=== PATIENT | female | born 1945 | race Hispanic/Latino ===

== ENCOUNTER 2017-10-30 08:33 | Outpatient (CLI) | payer MEDICARE | END 2017-10-30 08:34 | disposition home or self-care (01) | LOC: BICMAMMO 08:33 | PROVIDERS: ATTEND Family Medicine | DX: Z12.31 Encounter for screening mammogram for malignant neoplasm of breast (principal) | CPT/HCPCS: 77063; 77067 ==

== ENCOUNTER 2017-11-13 09:39 | Outpatient (CLI) | payer MEDICARE | END 2017-11-13 09:40 | disposition home or self-care (01) | LOC: BICMAMMO 09:39 | PROVIDERS: ATTEND Family Medicine | DX: R92.2 Inconclusive mammogram (principal); N63.20 Unspecified lump in the left breast, unspecified quadrant | CPT/HCPCS: 76642; 77065; G0279 ==

== ENCOUNTER → 2017-11-19 | Day surgery (SDC) | payer MEDICARE | LOC: BICULT 11:56 | PROVIDERS: ATTEND Family Medicine | PROC: 0HBU3ZX Excision of Left Breast, Percutaneous Approach, Diagnostic (ICD-10-PCS; principal; 2017-11-19) | DX: C50.812 Malignant neoplasm of overlapping sites of left female breast (principal); Z17.0 Estrogen receptor positive status [ER+]; Z79.82 Long term (current) use of aspirin; Z79.84 Long term (current) use of oral hypoglycemic drugs; Z79.899 Other long term (current) drug therapy | CPT/HCPCS: 19100; 76942; 88305; 88341; 88342; 88361; 88377 ==

== ENCOUNTER 2017-12-31 11:00 | Outpatient (CLI) | payer MEDICARE ==
[2017-12-31 12:13] LABS: #Eosinphils 0.1 thou/uL (0.0-0.7); #Lymphocytes 2.6 thou/uL (1.20-3.40); #Monocytes 0.7 thou/uL (0.11-0.59); #Neutrophils 4.5 thou/uL (1.40-6.50); %Basophils 0.4 % (0.0-1.0); %Eosinophils 1.7 % (0.0-10.0); %Lymphocytes 33.3 % (21.0-51.0); %Monocytes 8.2 % (0.0-10.0); %Neutrophils 56.4 % (42.0-75.0); Hemoglobin 12.6 g/dL (12.0-16.0); Mean Corpuscular Hemoglobin 30.7 pg (27.0-31.0); Mean Corpuscular Volume 92.8 fl (81.0-99.0); Mean Platelet Volume 7.5 fL (7.4-10.4); Platelet Count 252 thou/uL (130-400); RBC Distribution Width 12.1 % (11.5-14.5); Red Blood Cell (RBC) Count 4.11 mill/uL (4.20-5.40); White Blood Cell (WBC) Count 7.9 thou/uL (4.8-10.8)
[2017-12-31 12:32] LABS: ALT (SGPT) 14 U/L (8-55); AST (SGOT) 17 U/L (5-34); Albumin 3.9 g/dL (3.4-4.8); Alkaline Phosphatase 101 U/L (40-150); Anion Gap 11 mmol/L (10-20); BUN (Urea Nitrogen) 12 mg/dL (9.8-20.1); Bilirubin, Total 1.1 mg/dL (0.2-1.2); Calc. Creatinine Clearance 0 mL/min (70-130); Calcium 9.1 mg/dL (7.8-10.44); Carbon Dioxide 29 mmol/L (23-31); Chloride 104 mmol/L (98-107); Estimated GFR-MDRD 79; Glucose 166 mg/dL (83-110); Protein, Total 6.9 g/dL (6.0-8.3); Sodium 140 mmol/L (136-145)
--- NOTE | 2018-01-01 07:35 | EKG ---
Test Reason : Blood Pressure : / mmHG Vent. Rate : 073 BPM Atrial Rate : 073 BPM P-R Int : 132 ms QRS Dur : 078 ms QT Int : 394 ms P-R-T Axes : 064 044 033 degrees QTc Int : 434 ms Normal sinus rhythm Cannot rule out Anterior infarct , age undetermined Nonspecific ST-T changes Abnormal ECG When compared with ECG of 22-OCT-2016 13:56, No significant change was found Confirmed by DR. Leif CAVANAUGH ([id number]) on 01/01/2018 7:35:13 AM Referred By: GALLO Confirmed By:DR. Leif CAVANAUGH
== END 2017-12-31 11:01 | disposition home or self-care (01) ==
LOC: LABBT 11:00
PROVIDERS: ATTEND Surgery
DX: Z01.818 Encounter for other preprocedural examination (principal); C50.919 Malignant neoplasm of unspecified site of unspecified female breast
CPT/HCPCS: 80053; 85025; 93005; 93010

== ENCOUNTER → 2018-01-05 | Day surgery (SDC) | payer MEDICARE ==
[2017-12-31 11:24] VITALS: BMI 34.2
[~2018-01-05] MED LIST: Bupivacaine/Epinephrine 0.25% 30 ML VIAL ONE; CEFAZOLIN/Water 2 GM/20 ML SYRINGE ONE; Dexamethasone 20 MG/5 ML VIAL ONE; Fentanyl 100 MCG/2 ML VIAL ONE; Ketorolac Tromethamine 30 MG/ML VIAL ONE; Lidocaine 1% PF 5 ML VIAL ONE; Lidocaine 2% 10 ML INJ ONE; Metoclopramide HCl 10 MG/2 ML VIAL ONE; Ondansetron HCl/PF 4 MG/2 ML Vial ONE; PROPOFOL 200 MG/20 ML VIAL ONE
--- NOTE | 2018-01-05 10:48 | NM ---
LEFT BREAST LYMPHOSCINTIGRAPHY: HISTORY: Left breast cancer of the central left breast. TECHNIQUE: A left breast lymphoscintigraphy was performed after administration of 0.4 mCi of Technetium 99m filt ered sulfur colloid in a periareolar fashion. FINDINGS: Uptake of radiopharmaceutical was seen surrounding the nipple. There is also uptake in the left axil la consistent with a sentinel lymph node. IMPRESSION: Left axillary sentinel lymph node. POS: [facility]
--- NOTE | 2018-01-05 12:39 | OP ---
DATE OF PROCEDURE: 01/05/2018 PREOPERATIVE DIAGNOSIS: Left breast cancer. SURGEON: Alex Luz M.D. PROCEDURE PERFORMED: 1. Lymphoscintigraphy, sentinel lymph node biopsy x2. 2. Left needle localization lumpectomy. INDICATIONS: A 72-year-old female on mammogram was found to have a new mass in the left breast that was suspicious. She underwent core biopsy that was positive for infiltrating ductal carcinoma. FINDINGS: Two sentinel nodes were found, both of which were negative by touch prep. The specimen co ntained the suspicious area as well as the clip and the wire. PROCEDURE IN DETAIL: After informed consent was obtained, the patient was taken to the operating ortiz m and given general endotracheal anesthesia. She has undergone injection of radionucleotide as well as placement of a localization wire in Radiology. Her left breast was prepped and draped in usual fa shion. 4 mL of methylene blue was infiltrated subareolar and peritumoral. Then again, the left angel st was prepped and draped in usual fashion. A Neoprobe was then used, a baseline with counts around 12 was found then transcutaneous counts of 75. A transverse axillary incision performed. The subcu divided sharply. In vivo counts of 150, ex vivo counts of 300. This node was dissected out, ligated with 3-0 Vicryl ties. There was an area of residual counts of 55. This was grasped, excised and hill d an ex vivo counts of 200. Efferent and afferent lymphatics ligated with 3-0 Vicryl ties. While wa iting on the results of that, a circumareolar incision was performed. The subcu divided sharply and a core breast tissue was excised around the needle track down to the pectoralis fascia. The specimen was marked with the needle lateral, a black suture anterior, a blue suture superior, sent to mammogr aphy. Hemostasis achieved with electrocautery. The wounds were irrigated. By now, the sentinel nod es have come back negative. The subcutaneous reapproximated with interrupted 3-0 Vicryl. Skin close d with a running subcuticular 4-0 Rapide. Then we got the results of the mammography that showed otoniel t we got the lesion, the clip and the needle. Hemostasis achieved with electrocautery. Subcutaneous reapproximated with interrupted 3-0 Vicryl and skin closed with a running subcuticular 4-0 Rapide an d Steri-Strips. Sterile bandage applied. The patient tolerated the procedure well and was transferr ed to recovery in good condition. Sponge and needle count verified correct x2.
--- NOTE | 2018-01-05 15:51 | MMO ---
PROCEDURE NOTE: Date: 01/05/18 PREPROCEDURE DIAGNOSIS: Left breast cancer. POSTPROCEDURE DIAGNOSIS: Left breast cancer. PROCEDURE: Needle localization of left breast and biopsy clip. AS400 DEVELOPER: Dr. Senior. COMPLICATIONS: None. ANESTHESIA: 5 mL buffered 1% lidocaine. TECHNIQUE: Prior to the procedure, the risks and benefits of a needle localization of the patient's left breast mass/cancer were explained to the patient and she consented fully to the procedure. The patient was placed in compression in an LM projection with approach from lateral. A 7.5 cm Marenisco needle was chosen. The lateral aspect of the breast was prepped with Betadine. Lidocaine was used to anesthetize the skin and soft tissues down towards the mass and clip. A 7.5 cm Marenisco needle was then placed into the left breast perpendicular to the localization grid. The patient was taken out of compression and compressed in a CC direction. This showed a needle and wire immedia tely adjacent to and just anterior to the mass and clip. The wire was redeployed so that it was in a more hook-like configuration. The needle and wire were then secured to the patient and the patient wa s sent to day surgery for eventual surgical incision. A specimen radiograph was taken while the patient was in the operating room. The results of this spec imen radiograph were communicated to Dr. Luz via Dr. Whalen at the time of the specimen radiograph. IMPRESSION: Status post successful needle localization of left breast biopsy clip using mammographic guidance. POS: [facility]
== END ==
LOC: SDC 06:44
PROVIDERS: ATTEND Surgery
PROC: 0HBU0ZZ Excision of Left Breast, Open Approach (ICD-10-PCS; principal; 2018-01-05)
PROC: 07B60ZX Excision of Left Axillary Lymphatic, Open Approach, Diagnostic (ICD-10-PCS; 2018-01-05)
DX: C50.812 Malignant neoplasm of overlapping sites of left female breast (principal); E11.9 Type 2 diabetes mellitus without complications; I10 Essential (primary) hypertension; E78.5 Hyperlipidemia, unspecified; E03.9 Hypothyroidism, unspecified; Z79.82 Long term (current) use of aspirin; Z79.84 Long term (current) use of oral hypoglycemic drugs; Z79.899 Other long term (current) drug therapy; Z95.5 Presence of coronary angioplasty implant and graft; Z98.890 Other specified postprocedural states; Z83.3 Family history of diabetes mellitus; Z82.49 Family history of ischemic heart disease and other diseases of the circulatory system; Z17.0 Estrogen receptor positive status [ER+]
CPT/HCPCS: 19281; 19301; 38525; 76098; 78195; 96374; A9541; Q9968; 88307; 88333; 88334; 88342; J0131; J1100; J1885; J2001; J2405; J2704; J2765; J3010

== ENCOUNTER 2018-01-27 08:22 | Outpatient (CLI) | payer MEDICARE | END 2018-01-27 08:23 | disposition home or self-care (01) | LOC: BICMAMMO 08:22 | PROVIDERS: ATTEND Internal Medicine Medical Oncology | DX: Z13.820 Encounter for screening for osteoporosis (principal); C50.919 Malignant neoplasm of unspecified site of unspecified female breast; N95.9 Unspecified menopausal and perimenopausal disorder; M85.88 Other specified disorders of bone density and structure, other site | CPT/HCPCS: 77080 ==

== ENCOUNTER 2018-06-01 00:17 | Emergency (ER) | payer MEDICARE ==
[2018-06-01] MEDS ORDERED: Acetaminophen 500 MG TAB ONE (01:14)
== END 2018-06-01 01:16 | disposition home or self-care (01) ==
LOC: SCSER 00:17
DX: N64.59 Other signs and symptoms in breast (principal); E78.5 Hyperlipidemia, unspecified; I25.10 Atherosclerotic heart disease of native coronary artery without angina pectoris; E11.9 Type 2 diabetes mellitus without complications; E03.9 Hypothyroidism, unspecified; Z79.82 Long term (current) use of aspirin; Z79.84 Long term (current) use of oral hypoglycemic drugs; Z79.899 Other long term (current) drug therapy
CPT/HCPCS: 99283

== ENCOUNTER 2018-11-26 07:52 | Outpatient (CLI) | payer MEDICARE ==
--- NOTE | 2018-11-27 11:56 | MMO ---
Bilateral MAMMO Bilat Diag DDI+MER. CLINICAL HISTORY: Patient is 73 years old and is seen for diagnostic exam. The patient has no family history of breast cancer. The patient has a history of Ultrasound Guided Core Biopsy procedure revealed invasive well differentiated ductal left breast carcinoma in October, and malignant (generic) in the left breast in October,. The patient has a history of left Lumpectomy in Dec, 2017, left Ultrasound Guided Core Biopsy in October, - malignant, left Ultrasound Guided Core Biopsy in October, and right Excisional Biopsy in 1993 - benign. VIEWS: The views performed were: bilateral craniocaudal with tomosynthesis; bilateral mediolateral oblique with tomosynthesis; and bilateral mediolateral. FILMS COMPARED: The present examination has been compared to prior imaging studies performed at [facility] on 02/15/2000, 05/12/2001, 08/26/2002, 08/30/2003, 09/03/2004, 10/17/2005, 05/29/2007, 06/15/2008, 07/17/2009, 07/18/2010, 07/31/2011, 09/18/2012, 09/27/2013, 09/28/2014, 10/03/2015, 10/10/2015, 10/15/2016, 10/30/2017 and 11/13/2017. MAMMOGRAM FINDINGS: There are scattered fibroglandular densities. Finding 1: There is an area of skin thickening and a post operative change seen in the left breast. Finding 2: There is a stable post-surgical scar seen in the right breast. Finding 3: There are stable benign appearing and vascular calcifications seen in both breasts. There are no suspicious masses, suspicious calcifications, or new areas of architectural distortion. IMPRESSION: FINDING 1: AREA OF SKIN THICKENING AND POST OPERATIVE CHANGE IN THE LEFT BREAST ARE BENIGN. THE PATIENT WAS INFORMED OF THE EXAM RESULTS. FINDING 2: STABLE POST-SURGICAL SCAR IN THE RIGHT BREAST IS BENIGN. FINDING 3: STABLE CALCIFICATIONS IN BOTH BREASTS ARE BENIGN. A ROUTINE FOLLOW-UP MAMMOGRAM IN 1 YEAR IS RECOMMENDED. THE RESULTS OF THIS EXAM WERE SENT TO THE PATIENT. ACR BI-RADS Category 2 - Benign finding MAMMOGRAPHY NOTE: 1. A negative mammogram report should not delay a biopsy if a dominant of clinically suspicious mass is present. 2. Approximately 10% to 15% of breast cancers are not detected by mammography. 3. Adenosis and dense breasts may obscure an underlying neoplasm.
== END 2018-11-26 07:53 | disposition home or self-care (01) ==
LOC: BICMAMMO 07:52
PROVIDERS: ATTEND Internal Medicine Medical Oncology
DX: Z08 Encounter for follow-up examination after completed treatment for malignant neoplasm (principal); Z85.3 Personal history of malignant neoplasm of breast; R92.1 Mammographic calcification found on diagnostic imaging of breast; N64.59 Other signs and symptoms in breast; Z98.890 Other specified postprocedural states
CPT/HCPCS: 77066; G0279

== ENCOUNTER 2019-01-13 12:22 | Inpatient (IN) | payer MEDICARE ==
--- NOTE | 2019-01-13 13:18 | RAD ---
Right femur: 3 views INDICATIONS: fall with injury to right lower extremity FINDINGS: There is a comminuted displaced fracture of the distal femur. Distal fragment which include s the femoral condyles exhibits posterior angulation and displacement. IMPRESSION: Comminuted displaced fracture distal femur
[2019-01-13 13:24] LABS: #Basophils 0.1 thou/uL (0.0-0.2); #Eosinphils 0.1 thou/uL (0.0-0.7); #Lymphocytes 2.6 thou/uL (1.20-3.40); #Monocytes 0.7 thou/uL (0.11-0.59); #Neutrophils 7.9 thou/uL (1.40-6.50); %Basophils 0.4 % (0.0-1.0); %Eosinophils 1.2 % (0.0-10.0); %Neutrophils 69.4 % (42.0-75.0); Hemoglobin 11.2 g/dL (12.0-16.0); Mean Corpuscular HGB CONC 32.1 g/dL (32.0-36.0); Mean Corpuscular Volume 93.6 fL (78.0-98.0); Mean Platelet Volume 7.9 fL (7.4-10.4); Platelet Count 254 thou/uL (130-400); RBC Distribution Width 12.6 % (11.5-14.5); Red Blood Cell (RBC) Count 3.73 mill/uL (4.20-5.40); White Blood Cell (WBC) Count 11.3 thou/uL (4.8-10.8)
[2019-01-13] MEDS ORDERED: Morphine 4 MG/ML VIAL ONE (13:29)
[2019-01-13 13:30] LABS: PTT 26.3 SEC (22.9-36.1); Prothrombin Time 13.2 SEC (12.0-14.7)
[2019-01-13 13:51] LABS: ALT (SGPT) 15 U/L (8-55); AST (SGOT) 18 U/L (5-34); Albumin 3.8 g/dL (3.4-4.8); Alkaline Phosphatase 87 U/L (40-150); Anion Gap 13 mmol/L (10-20); BUN (Urea Nitrogen) 8 mg/dL (9.8-20.1); Bilirubin, Total 0.8 mg/dL (0.2-1.2); Calc. Creatinine Clearance 0 mL/min (70-130); Calcium 9.3 mg/dL (7.8-10.44); Carbon Dioxide 28 mmol/L (23-31); Chloride 103 mmol/L (98-107); Estimated GFR-MDRD 77; Globulin 2.9 g/dL (2.4-3.5); Glucose 136 mg/dL (83-110); Potassium 3.8 mmol/L (3.5-5.1); Protein, Total 6.7 g/dL (6.0-8.3); Sodium 140 mmol/L (136-145)
--- NOTE | 2019-01-13 14:17 | RAD ---
CHEST 1 VIEW: Date: 01/13/19 HISTORY: Injury from a fall. FINDINGS: A single left lateral decubitus view of the chest is performed. There is evidence of cardiomegaly. Th ere is no significant free layering pleural effusion. No evidence for pneumothorax. IMPRESSION: Limited left lateral decubitus view of chest. No significant free layering pleural effusion or pneumo thorax. Minimal cardiomegaly. Short-term follow-up with additional x-rays or imaging suggested depend ing upon clinical concern. POS: [facility]
--- NOTE | 2019-01-13 14:24 | RAD ---
RIGHT KNEE 2 VIEWS: Date: 01/13/19 HISTORY: Injury following a fall. FINDINGS: There is a very severely comminuted, severely malpositioned fracture of the distal femoral metadiaphy sis, probably extending into the knee joint. IMPRESSION: Very markedly comminuted, markedly angulated fracture of the distal femoral metadiaphysis, probably e xtending into the knee joint, with posterior angulation and foreshortening and severe associated defo rmity. POS: [facility]
--- NOTE | 2019-01-13 14:25 | RAD ---
Exam: One view pelvis HISTORY: Pain. Injury. Fall. FINDINGS: Limited evaluation due to technique and body habitus. Upper sacral alar are intact. Symmetr ic sacroiliac joints. Visualized bony pelvis is intact. Limited evaluation the left iliac wing. The contour of both femoral head is maintained. Hip joint spaces are symmetric. Limited evaluation th e left or right femoral neck IMPRESSION: Limited evaluation as above. If the patient is unable to bear weight, consider evaluation .
--- NOTE | 2019-01-13 14:46 | CON ---
DATE OF CONSULTATION: 01/13/2019 This is Ria Bernal PA-C dictating a report for Sy Taylor MD. REQUESTING PHYSICIAN: Dr. Santiago Abreu. CONSULTING PHYSICIAN: Dr. Sy Taylor. REASON FOR CONSULTATION: Right knee deformity. HISTORY OF PRESENT ILLNESS: This is a 73-year-old female, who presented to the emergency department today by way of ground transport with complaints of right knee deformity. Currently at bedside, the patient states that she was walking out of the bank when she lost her footing and tripped and fell. She immediately noted right knee deformity and bleeding coming from her knee. She denied any numbness or tingling. The pain was worsened with movement and relieved with splinting by EMS. She denied any neck pain, back pain, or loss of consciousness. X-rays obtained here in the emergency department including views of the right femur and the right knee showed evidence of a displaced comminuted distal femur fracture. The patient was noted to have bleeding and possible synovial fluid leaking from a small cut in the anterior knee. This is felt to be open, and our service was consulted for this reason. Currently at bedside, there are several family members present. She has been comfortable since receiving pain medication here in the emergency department. She denies any other pain at this time. PAST MEDICAL HISTORY: Significant for hyperlipidemia, coronary artery disease with history of stent placement x2, type 2 diabetes, left breast cancer, and hypothyroidism. PAST SURGICAL HISTORY: Significant for cholecystectomy, cardiac stents, tubal ligation, and left breast lumpectomy. SOCIAL HISTORY: The patient denies any alcohol or tobacco use. She lives at home alone with family on nearby land. She is an independent ambulator. FAMILY HISTORY: Reviewed, noncontributory. REVIEW OF SYSTEMS: A 10-point review of systems conducted and otherwise negative except for stated above. PHYSICAL EXAMINATION: VITAL SIGNS: Blood pressure 144/73, pulse of 88, respiratory rate of 16, temperature 98.5 degrees Fahrenheit, O2 saturation of 98 on room air. GENERAL: The patient is awake and alert. She is lying in the left lateral decubitus position on a stretcher in the ER upon my evaluation. There is family present in the room. She is pleasant and cooperative with exam findings today. She speaks both Mexican and Czech, but family members translate as needed. HEENT: Head is normocephalic and atraumatic. NECK: Supple. Trachea midline. LUNGS: Breathing nonlabored. EXTREMITIES: The right lower extremity is evaluated. There is a splint in place to the right lower extremity. This does appear to be placed by EMS. The patient is able to move her toes and wiggle her foot. Sensation intact. Capillary refill 3 seconds. There is bleeding noted from the anterior knee. This does appear to be trickling out possible synovial fluid as my evaluation is done. No other obvious injuries are noted. DIAGNOSTIC STUDIES: Radiographic imaging including views of the knee and views of the femur reviewed today show evidence of a comminuted and displaced distal femur fracture on the right. ASSESSMENT: Open distal femur fracture. PLAN: At this time, we would consider this a grade 1 open fracture. The patient will be taken to the OR today for washout as well as open reduction and internal fixation. Risks and benefits of surgery discussed at length with the patient and her family today. These include, but are not limited to bleeding, infection, neurovascular injury, malunion, and nonunion. They verbalized understanding and are amenable to this plan of care. She will be nonweightbearing for up to 10 to 12 weeks following surgery. We will plan for rehab or half-way facility once she is in the postoperative state. The patient is admitted to Trauma Services. Job ID: [id number] [facility]
[2019-01-13] MEDS ORDERED: Ketorolac Tromethamine 30 MG/ML VIAL ONE (14:47)
[2019-01-13] MEDS ORDERED: Acetaminophen 1,000 MG in Premix Bag 1 BAG IVPB SCH (15:00)
[2019-01-13] MEDS ORDERED: Sodium Chloride 0.9% 100 ML ONE (16:27)
[2019-01-13] MEDS ORDERED: CEFAZOLIN 1 GM VIAL ONE (16:27)
[2019-01-13] MEDS ORDERED: Fentanyl 100 MCG/2 ML VIAL ONE ×4 (16:44→21:26)
[2019-01-13] MEDS ORDERED: Neomycin-Polymyxin 1 ML AMP ONE (17:02)
[2019-01-13] MEDS ORDERED: Ondansetron HCl/PF 4 MG/2 ML Vial IVP PRN (19:35)
[2019-01-13] MEDS ORDERED: Morphine Sulfate 2 MG/ML SYRINGE SLOW IVP PRN (19:35)
--- NOTE | 2019-01-13 21:08 | RAD ---
Intraoperative imaging of the right femur: 01/13/2019 HISTORY: Femur fracture status post open reduction and internal fixation FINDINGS: 6 intraoperative images are provided. The comminuted obliquely oriented distal right femur fracture has been treated with a lateral screw and plate fixation. Minimal residual medial displacement of distal fracture fragment noted. No evidence for hardware failure. IMPRESSION: ORIF of distal right femur fracture as above.
[2019-01-13] MEDS ORDERED: Sodium Chloride 0.9% 1,000 ML IV SCH (21:16)
[2019-01-13] MEDS ORDERED: Cyclobenzaprine 10 MG TAB PO PRN (21:16)
[2019-01-13] MEDS ORDERED: Morphine 2 MG/ML SYRINGE SLOW IVP PRN (21:16)
[2019-01-13] MEDS ORDERED: traMADol HCl 50 MG TAB PO PRN (21:16)
[2019-01-13] MEDS ORDERED: Dextrose 5% in Water 1,000 ML IV PRN (21:16)
[2019-01-13] MEDS ORDERED: Ondansetron PF 4 MG/2 ML Vial IVP PRN (21:16)
[2019-01-13] MEDS ORDERED: hydrALAZINE 20 MG/ML VIAL SLOW IVP PRN (21:16)
[2019-01-13] MEDS ORDERED: Dextrose 50% Abboject 50 ML SYRINGE SLOW IVP PRN (21:16)
[2019-01-13] MEDS ORDERED: Promethazine HCl 25 MG/ML VIAL IM PRN (21:16)
[2019-01-13] MEDS ORDERED: Famotidine 20 MG TAB PO SCH (21:30)
[2019-01-13] MEDS ORDERED: Senokot S 8.6-50 MG TAB PO SCH (21:30)
[2019-01-13] MEDS ORDERED: CEFAZOLIN 2 GM in Premix Bag 1 BAG IVPB SCH (22:00)
[2019-01-13 22:13] VITALS: BMI 34.9
[2019-01-13] MEDS: Acetaminophen 1,000 MG in Premix Bag 1 BAG IVPB SCH (22:40)
[2019-01-13] MEDS: Ibuprofen 600 MG TAB PO SCH (22:41)
[2019-01-13] MEDS: traMADol HCl 50 MG TAB PO SCH (22:42)
--- NOTE | 2019-01-13 23:40 | HP ---
TRAUMA SURGEON: Cristian Parker DO CONSULTING PHYSICIAN: Sy Taylor MD HISTORY OF PRESENT ILLNESS: The patient is a 73-year-old female who presented to the emergency department after a mechanical fall. She reported going up a few steps of the bank, subsequently falling onto her right lower extremity. She had deformity and bleeding, and was brought in by EMS with her right lower extremity in a splint. On my evaluation, she complained of pain to her right knee. She said she did not lose the consciousness and denies anticoagulation use. She denies nausea, vomiting, or diarrhea. Sensation and pulses are intact in the right lower extremity. REVIEW OF SYSTEMS: All additional 10-point review of systems negative except as indicated above. PAST MEDICAL HISTORY: Breast cancer, hyperlipidemia, cardiac stents x2, coronary artery disease, diabetes, hypothyroidism. PAST SURGICAL HISTORY: Cholecystectomy and tubal ligation. SOCIAL HISTORY: The patient denies tobacco, drug, or alcohol abuse. MEDICATIONS: 1. Aspirin. 2. Levothyroxine. 3. Metformin. 4. Losartan. 5. Atorvastatin. PHYSICAL EXAMINATION: VITAL SIGNS: Temperature 98.8, heart rate 89, blood pressure 142/89, respirations 20, oxygen saturation 98% on room air. PRIMARY SURVEY: Airway intact. Adequate breath sounds bilaterally. 2+ distal pulses palpable in the bilateral radials, femorals, and DPs. GCS is 15. Gross motor and sensation intact. Abrasion laceration to the right knee. No bruises noted. Bleeding is well controlled. SECONDARY SURVEY: HEAD: Normocephalic, atraumatic. No gross palpable skull deformities or tenderness. EYES: Pupils 3 to 2, equal, round, reactive to light bilaterally. ENT: No hemotympanum. No epistaxis. No septal hematoma. Midface stable to manipulation. No blood in the oropharynx. Dentition is intact. No anterior neck injury/crepitus/tenderness. C-SPINE: No step-offs or deformities. Nontender. No C-collar in place. CHEST: Nontender. No crepitus. No abrasions or ecchymosis. Equal chest movement. ABDOMEN: Soft, nontender, nondistended. PELVIS: Stable to palpation, nontender. No abrasions or ecchymosis noted. RECTAL: Deferred. GENITOURINARY: Deferred. EXTREMITIES: Gross deformity and swelling as well as abrasion laceration to the right knee with bleeding controlled. 2+ pulses in the bilateral radials, femorals, and DPs. BACK/SPINE: No step-offs or deformities or tenderness to palpation of the thoracic or lumbar spine. No abrasions or ecchymosis noted. NEUROLOGIC: GCS is 15, 5/5 strength in bilateral lower extremities. Plantar flexion and dorsiflexion. Gross normal sensation x4 extremities. LABORATORY FINDINGS: White count 11.3, hemoglobin 11.2, hematocrit 34.9, and platelets 254. INR 1.0. Sodium 140, potassium 3.4, chloride 103, carbon dioxide 28, BUN 8, creatinine 0.74, glucose 136, lactic acid 2.5, total bilirubin 0.8, AST 18, ALT 15. DIAGNOSTIC FINDINGS: X-ray of the right knee demonstrates very markedly comminuted, markedly angulated fracture of the distal femur metaphysis probably extending into the knee joint with posterior angulation and foreshortened with severe associated deformity. X-ray of the right femur demonstrates comminuted displaced fracture of the distal femur. Chest x-ray demonstrates limited left lateral decubitus view of the chest. No significant free layering pulmonary effusion or pneumothorax. Minimal cardiomegaly, soft. Short-term followup with additional x-rays or imaging suggested depending upon clinical concern. X-ray of the pelvis demonstrates limited evaluation as above. If the patient is unable to bear weight, consider evaluation. ASSESSMENT: 1. Status post mechanical fall. 2. Right distal femur fracture, open. 3. Acute traumatic pain secondary to femur fracture. 4. History of breast cancer, hyperlipidemia, stents x3, coronary artery disease, diabetes, hypothyroidism. PLAN: The patient received 2 g of Ancef in the emergency department. Tetanus was up to date. Orthopedics with Dr. Taylor was consulted and the patient is going to be going to the OR today. She did receive 500 mL of LR in the emergency department for elevated lactic acid. She will also be continued on fluids postoperatively. Postoperatively, the patient will be given a diabetic diet. She also has insulin sliding scale. Pain control. She will also receive physical and occupational therapy, will likely need to be discharged to an acute rehab facility. We will hold chemo-DVT prophylaxis at this time. The patient will be started on stress ulcer prophylaxis. The patient was seen and evaluated with Dr. Parker this afternoon in the emergency department. Job ID: [id number]
--- NOTE | 2019-01-14 02:06 | OP ---
DATE OF PROCEDURE: 01/13/2019 PROCEDURE PERFORMED: Open reduction and internal fixation of right distal femur fracture with intra-articular extension. PREOPERATIVE DIAGNOSIS: Right distal femur fracture. POSTOPERATIVE DIAGNOSIS: Right distal femur fracture. COMPLICATIONS: None. ESTIMATED BLOOD LOSS: 400 mL. CORPORATE JOB TITLES: Sy Molina PA-C IMPLANTS: Synthes 14-hole distal femoral plate with multiple locking and nonlocking screws as well as 4.0 mm screws. INDICATIONS FOR PROCEDURE: Ms. Fregoso is a 73-year-old female, who fell and fractured her distal femur. This was an open fracture. She was indicated for open reduction and internal fixation as well as irrigation and debridement of the wounds. Risks have been reviewed in detail. Risks include infection, pain, swelling, scarring , nerve or vascular injury, dvt, pe, and others She is aware of risks and wants to proceed. DESCRIPTION OF PROCEDURE: Ms. Fregoso was identified in the preoperative holding area. Her correct extremity was marked. She was carried to the operating room. She was positioned supine. General anesthesia was induced. Multidisciplinary time-out was performed. The right lower extremity was prepped and draped in sterile fashion. We began the procedure with a lateral approach to the distal femur. We dissected down through the subcutaneous tissues to the fascia, which was opened. We entered the intra-articular aspect of the joint as well. We visualized a highly comminuted and displaced intra-articular distal femur fracture. We irrigated the joint and removed some small fragments of cartilage. We then reduced the intercondylar split with a reduction forceps. We held this with a K-wire. We then placed two 4.0 screws along the anterior aspect of the condyles. These were out of the path of the plate. Next, we reduced the supracondylar fracture using traction and rotation. Once we had an anatomic reduction, we applied our 14-hole plate. We held this with a proximal K-wire as well as distal wire. We then placed a proximal nonlocking screw, followed by multiple distal locking screws. We placed interfragmentary screws as well. At this point, we proceeded to x-ray and confirmed that we had anatomic reduction and good hardware placement. We placed several more screws. This completed the operation. We performed an additional irrigation, especially of the patient's open wounds. We then closed in layers. 0 Vicryl suture, 2-0 Vicryl suture, and carolyn were used. A sterile dressing was placed. The patient was taken to the recovery room in good condition without complication. At this point, a knee immobilizer was placed. Job ID: [id number] [facility]
[2019-01-14] MEDS: Acetaminophen 1,000 MG in Premix Bag 1 BAG IVPB SCH (02:26)
[2019-01-14] MEDS: CEFAZOLIN 2 GM in Premix Bag 1 BAG IVPB SCH ×3 (03:00→18:50)
[2019-01-14] MEDS: traMADol HCl 50 MG TAB PO SCH ×4 (04:06→21:59)
[2019-01-14] MEDS: Ibuprofen 600 MG TAB PO SCH ×3 (05:27→21:58)
[2019-01-14 08:08] LABS: Hemoglobin 8.4 g/dL (12.0-16.0); Mean Corpuscular HGB CONC 33.4 g/dL (32.0-36.0); Mean Corpuscular Hemoglobin 31.2 pg (27.0-31.0); Mean Corpuscular Volume 93.3 fL (78.0-98.0); Mean Platelet Volume 8.1 fL (7.4-10.4); Platelet Count 195 thou/uL (130-400); RBC Distribution Width 12.7 % (11.5-14.5); Red Blood Cell (RBC) Count 2.67 mill/uL (4.20-5.40); White Blood Cell (WBC) Count 10.5 thou/uL (4.8-10.8)
[2019-01-14 08:16] LABS: Hemoglobin A1c 7.5 % (4.0-6.0)
[2019-01-14] MEDS: Levothyroxine Sodium 125 MCG TAB PO SCH (08:44)
[2019-01-14] MEDS: Aspirin 81 mg Enteric Coated Tablet PO SCH ×2 (08:45→21:58)
[2019-01-14] MEDS: Senokot S 8.6-50 MG TAB PO SCH ×2 (08:45→21:58)
[2019-01-14] MEDS: Atorvastatin Calcium 20 MG TAB PO SCH (08:45)
[2019-01-14] MEDS: Calcium Carbonate + Vit D 1 TAB PO SCH ×2 (08:45→21:58)
[2019-01-14] MEDS: Anastrozole 1 MG TAB PO SCH (08:46)
[2019-01-14] MEDS: Polyethylene Glycol 3350 17 GM Packet PO SCH (08:47)
[2019-01-14 08:51] LABS: Anion Gap 12 mmol/L (10-20); BUN (Urea Nitrogen) 8 mg/dL (9.8-20.1); Calc. Creatinine Clearance 101 mL/min (70-130); Calcium 7.9 mg/dL (7.8-10.44); Carbon Dioxide 24 mmol/L (23-31); Chloride 105 mmol/L (98-107); Estimated GFR-MDRD 87; Glucose 123 mg/dL (83-110); Magnesium 1.2 mg/dL (1.6-2.6); Phosphorus 4.1 mg/dL (2.3-4.7); Potassium 3.9 mmol/L (3.5-5.1); Sodium 137 mmol/L (136-145)
[2019-01-14 08:58] LABS: Band 16 % (5-11); Lymphocytes 22 % (21-51); MDiff Complete? YES; Monocytes 8 % (0-10); Neutrophil 54 % (42-75); Ovalocytes SLIGHT = 2-5 cells (100X) (0-1/hpf); Polychromasia SLIGHT = 2-3 cells (100X) (0-2/hpf)
[2019-01-14] MEDS: Acetaminophen 500 MG TAB PO SCH ×4 (09:00→21:58)
[2019-01-14] MEDS ORDERED: Anastrozole 1 MG TAB PO SCH (09:00)
[2019-01-14] MEDS ORDERED: Famotidine 20 MG TAB PO SCH (09:00)
[2019-01-14] MEDS ORDERED: MAGNESIUM SULFATE IVPB SCH (11:15)
--- NOTE | 2019-01-14 11:31 | PRG ---
DATE OF SERVICE: 01/14/2019 SUBJECTIVE: Ms. Fregoso is a 73-year-old woman, who is postoperative day #1 status post open reduction and internal fixation of right distal femur fracture. She reports adequate pain control this morning. She tolerated breakfast. Urinary output is adequate. OBJECTIVE: VITAL SIGNS: Include blood pressure 102/66, pulse 80, respiratory rate 16, temperature 97.9 degrees Fahrenheit, oxygen saturation 94% on room air. HEART: Reveals regular rate and rhythm. LUNGS: Clear to auscultation bilaterally. Breathing, regular and nonlabored. ABDOMEN: Soft, nontender, and nondistended. LABORATORY FINDINGS: Today include a CBC with 10,500 white blood cells, hemoglobin and hematocrit 8.4 and 25.0 respectively, platelet count 195,000. Metabolic profile; sodium 137, potassium 3.9, chloride is 105, bicarb is 24, BUN 8, creatinine 0.67, glucose 123, magnesium 1.2, phosphorus is 4.1. IMPRESSION: 1. Postoperative day #1 status post open reduction and internal fixation of distal right femur fracture. 2. Acute blood loss anemia secondary to femur fracture. PLAN: 1. Correct abnormal electrolytes. 2. Initiate physical and occupational therapy. 3. There is no clinical indication for blood transfusion at this time as the patient is asymptomatic with her blood loss anemia. 4. We will anticipate transfer to inpatient rehabilitation postdischarge. Above findings and plan were discussed with the patient and family at bedside. The patient indicates understanding of information given. I answered her questions. Job ID: [id number]
[2019-01-14] MEDS ORDERED: Magnesium Sulfate 4 GM in Sodium Chloride 0.9% 250 ML 250 ML IVPB SCH (12:00)
[2019-01-14] MEDS: HumaLOG 300 UNITS/3 ML VIAL SC PRN ×3 (13:59→21:59)
[2019-01-15] MEDS: CEFAZOLIN 2 GM in Premix Bag 1 BAG IVPB SCH ×2 (03:50→03:59)
[2019-01-15] MEDS: Acetaminophen 500 MG TAB PO SCH ×4 (03:50→20:04)
[2019-01-15] MEDS: traMADol HCl 50 MG TAB PO SCH ×3 (04:07→15:20)
[2019-01-15 06:28] LABS: #Eosinphils 0.1 thou/uL (0.0-0.7); #Lymphocytes 1.6 thou/uL (1.20-3.40); #Monocytes 1.1 thou/uL (0.11-0.59); #Neutrophils 9.7 thou/uL (1.40-6.50); %Basophils 0.1 % (0.0-1.0); %Eosinophils 1.1 % (0.0-10.0); %Lymphocytes 12.8 % (21.0-51.0); %Monocytes 9.1 % (0.0-10.0); Hemoglobin 8.4 g/dL (12.0-16.0); Mean Corpuscular HGB CONC 32.1 g/dL (32.0-36.0); Mean Corpuscular Hemoglobin 30.5 pg (27.0-31.0); Mean Corpuscular Volume 94.9 fL (78.0-98.0); Mean Platelet Volume 8.2 fL (7.4-10.4); Platelet Count 182 thou/uL (130-400); RBC Distribution Width 12.7 % (11.5-14.5); Red Blood Cell (RBC) Count 2.74 mill/uL (4.20-5.40); White Blood Cell (WBC) Count 12.6 thou/uL (4.8-10.8)
[2019-01-15] MEDS: HumaLOG 300 UNITS/3 ML VIAL SC PRN ×2 (06:35→15:59)
[2019-01-15] MEDS: Ibuprofen 600 MG TAB PO SCH ×2 (06:35→15:20)
[2019-01-15 06:40] LABS: Anion Gap 9 mmol/L (10-20); BUN (Urea Nitrogen) 7 mg/dL (9.8-20.1); Calc. Creatinine Clearance 105 mL/min (70-130); Calcium 8.2 mg/dL (7.8-10.44); Carbon Dioxide 28 mmol/L (23-31); Chloride 105 mmol/L (98-107); Estimated GFR-MDRD Greater than 90; Glucose 151 mg/dL (83-110); Magnesium 2.1 mg/dL (1.6-2.6); Phosphorus 2.9 mg/dL (2.3-4.7); Potassium 3.8 mmol/L (3.5-5.1); Sodium 138 mmol/L (136-145)
[2019-01-15] MEDS: Calcium Carbonate + Vit D 1 TAB PO SCH ×2 (08:59→20:05)
[2019-01-15] MEDS: Polyethylene Glycol 3350 17 GM Packet PO SCH (08:59)
[2019-01-15] MEDS: Senokot S 8.6-50 MG TAB PO SCH ×2 (09:00→20:05)
[2019-01-15] MEDS: Aspirin 81 mg Enteric Coated Tablet PO SCH ×2 (09:00→20:05)
[2019-01-15] MEDS: Levothyroxine Sodium 125 MCG TAB PO SCH (09:00)
[2019-01-15] MEDS: Anastrozole 1 MG TAB PO SCH (09:00)
[2019-01-15] MEDS: Atorvastatin Calcium 20 MG TAB PO SCH (09:00)
[2019-01-15] MEDS: Gabapentin 100 MG CAP PO SCH ×3 (15:19→20:05)
[2019-01-15 15:40] VITALS: BP 108/57; TEMP 98.2
[2019-01-15] MEDS ORDERED: Ferrous Sulfate 325 MG TAB PO SCH (17:00)
[2019-01-15] MEDS ORDERED: Famotidine 20 MG TAB PO SCH (21:00)
[2019-01-15] MEDS ORDERED: metFORMIN 500 MG TAB PO SCH (21:00)
--- NOTE | 2019-01-16 02:11 | DIS ---
DATE OF ADMISSION: 01/13/2019 DATE OF DISCHARGE: 01/15/2019 PROCEDURES: 1. On 01/13/2019, x-ray of the right knee demonstrates very markedly comminuted, markedly angulated fracture of the distal femur metaphysis probably standing into the knee joint with posterior angulation and foreshortening with severe associated deformity. X-ray of the right femur demonstrates comminuted displaced fracture of the distal femur. X-ray demonstrates limited left lateral decubitus view of the chest. No significant free layering pulmonary effusion or pneumothorax. Minimal cardiomegaly, soft. X-ray of pelvis demonstrates limited evaluation. 2. On 01/13/2019, procedure performed by Dr. Taylor, open reduction and internal fixation of right distal femur fracture with intra-articular extension. PRIMARY DIAGNOSIS: Open distal femur fracture status post mechanical fall, postop day #2, open reduction and internal fixation. SECONDARY DIAGNOSES: Acute traumatic pain secondary to femur fracture, history of breast cancer, hyperlipidemia, stents x3, coronary artery disease, diabetes, and hypothyroidism. DISCHARGE MEDICATIONS: 1. Tylenol 1000 mg p.o. q.6 hours. 2. Arimidex one tab p.o. daily. 3. Vitamin C 500 mg daily. 4. Aspirin p.o. twice a day. 5. Lipitor 20 mg p.o. daily. 6. Caltrate 600+ vitamin D, 1 tab p.o. daily. 7. Flexeril 5 mg p.o. 3 times a day as needed. 8. Famotidine 20 mg p.o. at bedtime. 9. Ferrous sulfate 325 mg p.o. b.i.d. with meals. 10. Gabapentin 100 mg three times a day as needed. 11. Ibuprofen 600 mg q.8 hours. 12. Levothyroxine 125 mcg p.o. daily. 13. Losartan potassium 50 mg p.o. daily. 14. Metformin 1000 mg p.o. b.i.d. 15. MiraLAX as needed. 16. Senokot as needed. 17. Tramadol 50 mg p.o. q.6 hours as needed for pain. DISCONTINUED MEDICATIONS: There were no discontinued medications. HISTORY OF PRESENT ILLNESS AND HOSPITAL COURSE: This is a 73-year-old female, who presented to the emergency room after a mechanical fall. There was no loss of consciousness. Denies any anticoagulation use. The patient denies any nausea, vomiting, diarrhea, or any recent illnesses. The patient had no overnight events and continues to tolerate a diet. The patient did report increased pain this morning, pain regimen adjusted. The patient also continues to have a stable low size hemoglobin, which we have added iron and vitamin C. On the day of discharge, the patient was awake and alert, in no distress with stable vital signs. The patient nor family had any complaints. The patient's exam was unremarkable including cardiopulmonary and GI exam. The patient was deemed stable for discharge to inpatient rehab for continued physical and occupational therapy. The case was discussed with the attending physician, who agrees. DISPOSITION: Stable. DISCHARGE INSTRUCTIONS: 1. Location: Inpatient rehab. 2. Diet: Diabetic diet. 3. Activity: Orthopedic limitations, nonweightbearing, right lower extremity. 4. Followup: Follow up with Dr. Taylor in 10 to 14 days as directed. No need to follow up with Dr. Parker's office. Call for any questions. Job ID: [id number] MTDD
[2019-01-16] MEDS ORDERED: Losartan 25 MG TAB PO SCH (09:00)
[2019-01-16] MEDS ORDERED: Ascorbic Acid 500 mg Chewable Tablet PO SCH (09:00)
== END 2019-01-15 21:05 | DRG 481 ==
LOC: ERS 12:22 → SDC 16:14 → SURG A 21:04
PROVIDERS: ADMIT Surgery; ATTEND Surgery
PROC: 0QSB04Z Reposition Right Lower Femur with Internal Fixation Device, Open Approach (ICD-10-PCS; principal; 2019-01-13)
DX: S72.401B Unspecified fracture of lower end of right femur, initial encounter for open fracture type I or II (principal); D62 Acute posthemorrhagic anemia; E78.5 Hyperlipidemia, unspecified; I25.10 Atherosclerotic heart disease of native coronary artery without angina pectoris; E11.9 Type 2 diabetes mellitus without complications; E03.9 Hypothyroidism, unspecified; Z98.61 Coronary angioplasty status; Z85.3 Personal history of malignant neoplasm of breast; Z90.49 Acquired absence of other specified parts of digestive tract; Z98.51 Tubal ligation status; Z98.890 Other specified postprocedural states; W10.9XXA Fall (on) (from) unspecified stairs and steps, initial encounter; Y92.510 Bank as the place of occurrence of the external cause
CPT/HCPCS: 36415; 36416; 71045; 72170; 76000; 80048; 80053; 83036; 83605; 83735; 84100; 85025; 85610; 85730; 96361; 96365; 96375; C1713; C1769; G0390; J0131; J0690; J1885; J2270; J3010; J3475; J3490; J7050

== ENCOUNTER 2019-03-11 13:53 | Outpatient (CLI) | payer MEDICARE ==
--- NOTE | 2019-03-11 16:33 | ULT ---
RIGHT LOWER EXTREMITY VENOUS DUPLEX STUDY: 03/11/19 Deep veins of the right lower extremity evaluated with color Doppler, spectral analysis and compressi on. INDICATIONS: Right lower extremity pain and edema. Recent surgery. FINDINGS: Right common femoral and femoral vein shows normal flow and compression. The popliteal vein shows echogenic thrombus with loss of compression. Thrombus extends into the right posterior tibial vein. IMPRESSION: Positive study for DVT with thrombus noted in the right popliteal vein and right posterior tibial vei n. Findings relayed to Dr. Rao at time of dictation. POS: [facility]
== END 2019-03-11 13:54 | disposition home or self-care (01) ==
LOC: ULT 13:53
PROVIDERS: ATTEND Family Medicine
DX: M79.604 Pain in right leg (principal); I82.431 Acute embolism and thrombosis of right popliteal vein; I82.441 Acute embolism and thrombosis of right tibial vein
CPT/HCPCS: 80053; 82728; 83540; 83550; 85025

== ENCOUNTER 2019-03-11 14:50 | Emergency (ER) | payer MEDICARE | END 2019-03-11 18:04 | disposition home or self-care (01) | LOC: ERS 14:50 | DX: I82.401 Acute embolism and thrombosis of unspecified deep veins of right lower extremity (principal); E78.5 Hyperlipidemia, unspecified; I25.10 Atherosclerotic heart disease of native coronary artery without angina pectoris; E11.9 Type 2 diabetes mellitus without complications; E03.9 Hypothyroidism, unspecified; Z79.899 Other long term (current) drug therapy; Z79.82 Long term (current) use of aspirin; Z79.84 Long term (current) use of oral hypoglycemic drugs | CPT/HCPCS: 99283 ==

== ENCOUNTER 2019-04-18 10:41 | Emergency (ER) | payer MEDICARE ==
[2019-04-18 12:00] LABS: INR-International Normal Ratio 3.5
[2019-04-18 12:07] LABS: Chloride 105 mmol/L (98-107); Sodium 137 mmol/L (136-145)
--- NOTE | 2019-04-18 12:37 | ULT ---
VENOUS DOPPLER ULTRASOUND OF THE RIGHT LOWER EXTREMITY: HISTORY: Right lower extremity pain and edema. TECHNIQUE: Lennon-scale ultrasound with color-flow and spectral Doppler imaging of the deep venous system of the r ight lower extremity is performed. FINDINGS: There is good flow, compression, and augmentation noted in the right common femoral, femoral, deep fe moral, popliteal, posterior tibial, and greater saphenous veins. IMPRESSION: No evidence of deep venous thrombosis in the right lower extremity. POS: [facility]
[2019-04-18 12:43] LABS: #Eosinphils 0.1 thou/uL (0.0-0.7); #Lymphocytes 2.6 thou/uL (1.20-3.40); #Monocytes 0.6 thou/uL (0.11-0.59); #Neutrophils 5.7 thou/uL (1.40-6.50); %Basophils 0.3 % (0.0-1.0); %Eosinophils 1.2 % (0.0-10.0); %Lymphocytes 28.9 % (21.0-51.0); %Monocytes 6.5 % (0.0-10.0); %Neutrophils 63.1 % (42.0-75.0); Hemoglobin 11.6 g/dL (12.0-16.0); Mean Corpuscular HGB CONC 32.2 g/dL (32.0-36.0); Mean Corpuscular Hemoglobin 29.6 pg (27.0-31.0); Mean Platelet Volume 7.2 fL (7.4-10.4); Platelet Count 341 thou/uL (130-400); RBC Distribution Width 12.6 % (11.5-14.5); Red Blood Cell (RBC) Count 3.93 mill/uL (4.20-5.40)
[2019-04-18 12:57] LABS: Albumin 3.6 g/dL (3.4-4.8)
[2019-04-18 12:59] LABS: Calcium 9.4 mg/dL (7.8-10.44)
[2019-04-18 13:00] LABS: Globulin 3.1 g/dL (2.4-3.5); Glucose 81 mg/dL (83-110); Protein, Total 6.7 g/dL (6.0-8.3)
[2019-04-18 13:01] LABS: Anion Gap 15 mmol/L (10-20); Carbon Dioxide 27 mmol/L (23-31)
[2019-04-18 13:02] LABS: Bilirubin, Total 0.5 mg/dL (0.2-1.2)
[2019-04-18 13:03] LABS: Alkaline Phosphatase 88 U/L (40-150)
[2019-04-18 13:04] LABS: BUN (Urea Nitrogen) 11 mg/dL (9.8-20.1); Calc. Creatinine Clearance 0 mL/min (70-130); Estimated GFR-MDRD 71
[2019-04-18 13:05] LABS: AST (SGOT) 18 U/L (5-34)
[2019-04-18 13:06] LABS: ALT (SGPT) 13 U/L (8-55); CK (CPK) 47 U/L (29-168)
[2019-04-18 13:38] LABS: Potassium 4.3 mmol/L (3.5-5.1)
== END 2019-04-18 13:34 | disposition home or self-care (01) ==
LOC: ERS 10:41
DX: M79.89 Other specified soft tissue disorders (principal); E78.5 Hyperlipidemia, unspecified; E78.00 Pure hypercholesterolemia, unspecified; I25.10 Atherosclerotic heart disease of native coronary artery without angina pectoris; E11.9 Type 2 diabetes mellitus without complications; E03.9 Hypothyroidism, unspecified; Z85.3 Personal history of malignant neoplasm of breast; Z79.899 Other long term (current) drug therapy; Z79.84 Long term (current) use of oral hypoglycemic drugs; Z95.5 Presence of coronary angioplasty implant and graft
CPT/HCPCS: 36415; 80053; 82550; 85025; 85610; 93005

== ENCOUNTER 2019-07-09 10:25 | Outpatient (CLI) | payer MEDICARE ==
--- NOTE | 2019-07-09 13:04 | BD ---
DEXA BONE DENSITY STUDY: Date: 07/09/19 HISTORY: Disorder of bone, unspecified. Osteoporosis screening. COMPARISON: None. FINDINGS: Lumbar Spine: BMD (g/cm2) L1 0.841 T-Score: -1.4 Z-Score: 0.7 L2 0.960 T-Score: -0.6 Z-Score: 1.7 L3 0.966 T-Score: -1.1 Z-Score: 1.3 L4 0.936 T-Score: -1.1 Z-Score: 1.3 L1-L4 0.928 T-Score: -1.1 Z-Score: 1.2 Left Femoral Neck: 0.684 T-Score: -1.5 Z-Score: 0.4 Total Femur: 0.754 T-Score: -1.5 Z-Score: 0.1 10 YEAR FRACTURE RISK: Major osteoporotic fracture: 9.2% Hip fracture: 1.5% IMPRESSION: Osteopenia with fracture risk as above. POS: [facility]
== END 2019-07-09 10:26 | disposition home or self-care (01) ==
LOC: BICMAMMO 10:25
PROVIDERS: ATTEND Internal Medicine Medical Oncology
DX: M85.89 Other specified disorders of bone density and structure, multiple sites (principal); C50.812 Malignant neoplasm of overlapping sites of left female breast; Z78.0 Asymptomatic menopausal state
CPT/HCPCS: 77080

== ENCOUNTER 2020-01-12 10:08 | Outpatient (CLI) | payer MEDICARE ==
--- NOTE | 2020-01-12 10:47 | MMO ---
Bilateral MAMMO Bilat Diag DDI+MER. CLINICAL HISTORY: Patient is 74 years old and is seen for diagnostic exam. The patient has no family history of breast cancer. 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 The patient has a history of left Lumpectomy in Dec, 2017, left Ultrasound Guided Core Biopsy in October, - malignant, left Ultrasound Guided Core Biopsy in October, and right Excisional Biopsy in 1993 - benign. VIEWS: The views performed were: bilateral craniocaudal with tomosynthesis; bilateral mediolateral oblique with tomosynthesis; and bilateral mediolateral with tomosynthesis. FILMS COMPARED: The present examination has been compared to prior imaging studies performed at [facility] on 11/13/2017, 01/05/2018 and 11/26/2018. This study has been interpreted with the assistance of computer-aided detection. MAMMOGRAM FINDINGS: The breasts are heterogeneously dense, which could obscure a lesion on mammography. Finding 1: There are stable post operative changes seen in the left breast. Finding 2: There are stable benign appearing calcifications seen in both breasts. There are also vascular calcifications. Finding 3: There is a stable low density, oval mass with circumscribed margins seen in the right breast at 12 o'clock. There are no suspicious masses, suspicious calcifications, or new areas of architectural distortion. IMPRESSION: THERE IS NO MAMMOGRAPHIC EVIDENCE OF MALIGNANCY. A ROUTINE FOLLOW-UP MAMMOGRAM IN 1 YEAR IS RECOMMENDED. THE RESULTS OF THIS EXAM WERE SENT TO THE PATIENT. ACR BI-RADS Category 2 - Benign finding MAMMOGRAPHY NOTE: 1. A negative mammogram report should not delay a biopsy if a dominant of clinically suspicious mass is present. 2. Approximately 10% to 15% of breast cancers are not detected by mammography. 3. Adenosis and dense breasts may obscure an underlying neoplasm. Reported by: CECILLE SPIVEY MD Electonically Signed: [id number]
== END 2020-01-12 10:09 | disposition home or self-care (01) ==
LOC: BICMAMMO 10:08
PROVIDERS: ATTEND Family Medicine
DX: Z08 Encounter for follow-up examination after completed treatment for malignant neoplasm (principal); Z85.3 Personal history of malignant neoplasm of breast
CPT/HCPCS: 77066; G0279

== ENCOUNTER 2020-01-13 18:32 | Observation (INO) | payer MEDICARE ==
[~2020-01-13 18:32] MED LIST changes: -Bupivacaine/Epinephrine 0.25% 30 ML VIAL ONE; -CEFAZOLIN/Water 2 GM/20 ML SYRINGE ONE; -Dexamethasone 20 MG/5 ML VIAL ONE; -Fentanyl 100 MCG/2 ML VIAL ONE; +Iopamidol-370 76% 500 ML 1 ML ONE; -Ketorolac Tromethamine 30 MG/ML VIAL ONE; -Lidocaine 1% PF 5 ML VIAL ONE; -Lidocaine 2% 10 ML INJ ONE; -Metoclopramide HCl 10 MG/2 ML VIAL ONE; -Ondansetron HCl/PF 4 MG/2 ML Vial ONE; -PROPOFOL 200 MG/20 ML VIAL ONE
[2020-01-13 19:14] LABS: #Basophils 0.1 thou/uL (0.0-0.2); #Eosinphils 0.2 thou/uL (0.0-0.7); #Lymphocytes 2.5 thou/uL (1.20-3.40); #Monocytes 0.7 thou/uL (0.11-0.59); %Basophils 0.9 % (0.0-1.0); %Eosinophils 2.1 % (0.0-10.0); %Lymphocytes 23.6 % (21.0-51.0); %Monocytes 6.9 % (0.0-10.0); %Neutrophils 66.5 % (42.0-75.0); Hemoglobin 12.6 g/dL (12.0-16.0); Mean Platelet Volume 8.8 fL (7.4-10.4); Platelet Count 320 thou/uL (130-400); RBC Distribution Width 12.5 % (11.5-14.5); Red Blood Cell (RBC) Count 4.07 mill/uL (4.20-5.40); White Blood Cell (WBC) Count 10.5 thou/uL (4.8-10.8)
--- NOTE | 2020-01-13 20:51 | CT ---
CTA Angio Chest W WO Con 01/13/2020 12:00 AM Indication: Tachycardia and weakness Technique: Multiple CTA images were obtained of the thorax with IV contrast. 3-D rendering: MIP kenji nstructed images were created and reviewed. Comparison: No relevant prior studies available. Findings: Pulmonary arteries: No central or segmental pulmonary embolus is evident. Heart and Aorta: There are coronary artery calcifications. There are thoracic aortic calcifications. There is a tiny pericardial effusion. Mediastinum:Normal appearing. No enlarged lymph nodes. Lungs:The lungs are clear. Pleural space: Clear. Upper Abdomen: There are small lateral hernia. Visualized aspects of the liver and spleen are unrema rkable appearing. Osseous Structures: No acute osseous abnormality. Soft tissues:No abnormality. Other findings:None. Impression: No central or segmental pulmonary embolus.
[2020-01-13] MEDS ORDERED: Metoprolol Tartrate 5 MG/5 ML VIAL ONE (20:58)
[2020-01-13 21:27] LABS: ALT (SGPT) 11 U/L (8-55); AST (SGOT) 15 U/L (5-34); Albumin 3.5 g/dL (3.4-4.8); Alkaline Phosphatase 110 U/L (40-110); Anion Gap 15 mmol/L (10-20); BUN (Urea Nitrogen) 11 mg/dL (9.8-20.1); Bilirubin, Total 0.5 mg/dL (0.2-1.2); Calc. Creatinine Clearance 0 mL/min (70-130); Calcium 9.2 mg/dL (7.8-10.44); Carbon Dioxide 23 mmol/L (23-31); Chloride 107 mmol/L (98-107); Estimated GFR-MDRD 77; Globulin 3.1 g/dL (2.4-3.5); Glucose 151 mg/dL (83-110); Potassium 3.8 mmol/L (3.5-5.1); Protein, Total 6.6 g/dL (6.0-8.3); Sodium 141 mmol/L (136-145)
[2020-01-13 22:37] VITALS: BMI 32.4
[2020-01-13 23:57] LABS: Troponin I 0.019 ng/mL (< 0.028)
[2020-01-14] MEDS ORDERED: Labetalol HCl 100 MG/20 ML VIAL SLOW IVP PRN (01:36)
[2020-01-14] MEDS ORDERED: Promethazine HCl 12.5 MG in Sodium Chloride 0.9% 50 ML IVPB PRN (01:36)
[2020-01-14] MEDS ORDERED: Guaifenesin DM 100-10/5 ML UDCUP PO PRN (01:36)
[2020-01-14] MEDS ORDERED: HYDROcodone/Acetaminophen 5/325 mg Tablet PO PRN (01:36)
[2020-01-14] MEDS ORDERED: Morphine 2 MG/ML SYRINGE SLOW IVP PRN (01:36)
[2020-01-14] MEDS ORDERED: cloNIDine 0.1 MG TAB PO PRN (01:36)
[2020-01-14] MEDS ORDERED: hydrALAZINE 20 MG/ML VIAL SLOW IVP PRN (01:36)
[2020-01-14] MEDS ORDERED: Acetaminophen 325 MG TAB PO PRN (01:36)
[2020-01-14] MEDS ORDERED: Ondansetron PF 4 MG/2 ML Vial IVP PRN (01:36)
[2020-01-14] MEDS ORDERED: CCU Electrolyte Replacement 1 EACH FS SCH (01:37)
[2020-01-14] MEDS ORDERED: Magnesium Oxide 400 MG TAB PO PRN ×2 (01:40)
[2020-01-14] MEDS ORDERED: Potassium Chloride 20 MEQ TAB PO PRN (01:40)
[2020-01-14] MEDS ORDERED: Potassium Chloride 40 MEQ in Premix Bag 1 BAG IVPB PRN (01:40)
[2020-01-14] MEDS ORDERED: Potassium Phosphate 15 MMOL in Sodium Chloride 0.9% 250 ML 250 ML IV PRN (01:40)
[2020-01-14] MEDS ORDERED: CCU ELECTROLYTE REPLACEMENT PROTOCOL FS PRN (01:40)
[2020-01-14] MEDS ORDERED: Potassium Chloride 40 MEQ in Sodium Chloride 0.9% 250 ML 250 ML IVPB PRN (01:40)
[2020-01-14] MEDS ORDERED: Magnesium 2 GM/50 ML 2 GM in Premix Bag 1 BAG IVPB PRN (01:40)
[2020-01-14] MEDS ORDERED: Potassium Phosphate 12 MMOL in Sodium Chloride 0.9% 250 ML 250 ML IV PRN (01:40)
[2020-01-14] MEDS ORDERED: PHOS-NAK 1 PKT PACK PO PRN ×2 (01:40)
[2020-01-14] MEDS ORDERED: Potassium Phosphate 9 MMOL in Sodium Chloride 0.9% 100 ML IVPB PRN (01:40)
--- NOTE | 2020-01-14 01:40 | PDOC.HHP ---
Hospitalist HPI - History of Present Illness Fast heart rate, dizziness History of Present Illness: Patient is a 74 year old female with PMH hypothyroidism, DM, CAD w/ 2 stents who presents to ED for dizziness and fast heart rate. Patient was sent to ED by PCP after heart rate found to be in the 140s. Patient reports she began to feel malaise and dizziness about 2-3 days ago, which is only symptom, denies chest pain/palpitations/diaphoresis/syncope. Patient reports these symptoms have been on-and-off for the last 4 months or so. Patient has history of CAD with stents x 2, last one placed in 2011, no recent cardiac workup that patient can remember. In ED, EKG significant for atrial fibrillation, telemetry on floor so far has revealed what appears to be afib/flutter with rate in 80s, which goes up higher to 130s or so with exertion such as ambulation. EKG at PCP office was sinus tachycardia in 140s w/ nonspecific T wave changes, sent to ED. Patient has no known diagnosis of any arrhythmia. Patient given beta blockers and IVF in ED which improved rate. CTA chest performed with no PE observed. Patient admitted for further workup. Hospitalist ROS - Review of Systems Constitutional: reports: weakness, malaise. denies: fever, chills, sweats, other Eyes: denies: pain, vision change, conjunctivae inflammation, eyelid inflammation, redness, other ENT: denies: ear pain, ear discharge, nose pain, nose discharge, nose congestion , mouth pain, mouth swelling, throat pain, throat swelling, other Respiratory: denies: cough, dry, shortness of breath, hemoptysis, SOB with excertion, pleuritic pain, sputum, wheezing, other Cardiovascular: reports: light headedness. denies: chest pain, palpitations, orthopnea, paroxysmal noc. dyspnea, edema, other Gastrointestinal: denies: nausea, vomiting, abdominal pain, diarrhea, constipation, melena, hematochezia, other Genitourinary: denies: dysuria, frequency, incontinence, hematuria, retention, other Musculoskeletal: denies: neck pain, shoulder pain, arm pain, back pain, hand pain, leg pain, foot pain, other Skin: denies: rash, lesions, александр, bruising, other Neurological: denies: weakness, numbness, incoordination, change in speech, confusion, seizures, other All other systems reviewed; all pertinent +/- noted in HPI/Subj Hospitalist History - Past Medical History Other Medical History: HLD CAD w/ 2 stents most recent 2011 T2DM L breast cancer s/p lumpectomy hypothyroidism - Past Surgical History Other Surgical History: Surgical history of cholecystectomy, Cardiac stents, tubal ligation, left breast lumpectomy. L femur fx repair. - Family History Family History: reports: no pertinent history - Social History Smoking Status: Never smoker Alcohol: reports: None Drugs: reports: none - Exam General Appearance: NAD, awake alert Eye: PERRL, anicteric sclera ENT: normocephalic atraumatic, no oropharyngeal lesions, moist mucosa Neck: supple, symmetric, no JVD, no thyromegaly, no lymphadenopathy, no carotid bruit Heart: irregular Respiratory: CTAB, no wheezes, no rales, no ronchi, normal chest expansion, no tachypnea, normal percussion Gastrointestinal: soft, non-tender, non-distended, normal bowel sounds, no palpable masses, no hepatomegaly, no splenomegaly, no bruit Extremities: no cyanosis, no clubbing, no edema Skin: normal turgor, no lesions, no rashes Neurological: cranial nerve grossly intact, normal sensation to touch, no weakness, no focal deficits, no new deficit Musculoskeletal: normal tone, normal strength, no muscle wasting Psychiatric: normal affect, normal behavior, A&O x 3 Hospitalist Results - Labs Result Diagrams: 01/13/20 19:08 01/13/20 20:04 Lab results: WBC 10.5 thou/uL (4.8-10.8) 01/13/20 19:08 Hgb 12.6 g/dL (12.0-16.0) 01/13/20 19:08 Hct 39.5 % (36.0-47.0) 01/13/20 19:08 MCV 97.0 fL (78.0-98.0) 01/13/20 19:08 Plt Count 320 thou/uL (130-400) 01/13/20 19:08 Neutrophils % 66.5 % (42.0-75.0) 01/13/20 19:08 Sodium 141 mmol/L (136-145) 01/13/20 20:04 Potassium 3.8 mmol/L (3.5-5.1) 01/13/20 20:04 Chloride 107 mmol/L (98-107) 01/13/20 20:04 Carbon Dioxide 23 mmol/L (23-31) 01/13/20 20:04 BUN 11 mg/dL (9.8-20.1) 01/13/20 20:04 Creatinine 0.74 mg/dL (0.6-1.1) 01/13/20 20:04 Glucose 151 mg/dL (83-110) H 01/13/20 20:04 Calcium 9.2 mg/dL (7.8-10.44) 01/13/20 20:04 Total Bilirubin 0.5 mg/dL (0.2-1.2) 01/13/20 20:04 AST 15 U/L (5-34) 01/13/20 20:04 ALT 11 U/L (8-55) 01/13/20 20:04 Alkaline Phosphatase 110 U/L (40-110) 01/13/20 20:04 Troponin I 0.019 ng/mL (< 0.028) 01/13/20 23:23 B-Natriuretic Peptide 126.0 pg/mL (0-100) H 01/13/20 19:08 Serum Total Protein 6.6 g/dL (6.0-8.3) 01/13/20 20:04 Albumin 3.5 g/dL (3.4-4.8) 01/13/20 20:04 Additional comment: VITAL SIGNS Blanquita January 13, 2020 21:47 JOHN English, Angy Bergman BP: 130/84 Pulse: 95 Resp: 20 Pain: 0 O2 sat: 96 on (Room Air) Time: 01/13/2020 21:47. CTA Angio Chest W WO Con Observe DT: Blanquita January 13, 2020 CTATHX CTA Angio Chest W WO Con 01/13/2020 12:00 AM Indication: Tachycardia and weakness Technique: Multiple CTA images were obtained of the thorax with IV contrast. 3- D rendering: MIP kenji nstructed images were created and reviewed. Comparison: No relevant prior studies available. Findings: Pulmonary arteries: No central or segmental pulmonary embolus is evident. Heart and Aorta: There are coronary artery calcifications. There are thoracic aortic calcifications. There is a tiny pericardial effusion. Mediastinum:Normal appearing. No enlarged lymph nodes. Lungs:The lungs are clear. Pleural space: Clear. Upper Abdomen: There are small lateral hernia. Visualized aspects of the liver and spleen are unrema rkable appearing. Osseous Structures: No acute osseous abnormality. Soft tissues:No abnormality. Other findings:None. Impression: No central or segmental pulmonary embolus. - EKG Interpretation EKG: Rate 140 bpm. Sinus. Left ventricular hypertrophy. Left axis deviation. ST segment depression in V5 V6. Impression sinus tachycardia with lateral ischemia. Hospitalist H&P A/P - Plan Plan: Patient is a 74 year old female with PMH hypothyroidism, DM, CAD w/ 2 stents who presents to ED for dizziness and fast heart rate. # narrow complex tachyarrhythmia # atrial flutter and fibrillation - appears to have developed arrhtyhmia in last few months, history of CAD, mildl symptoms, worsened last 2-3 days, found to have sinus tachycardia, in ED got beta alicia and IVF and converted to afib/flutter with rate 80s or so, CTA chest without PE - admit to telemetry - consult cardiology - echo - replete K and Mg ideally to 4 and 2 respectively - hold beta alicia given slow current rate and dizziness - start lovenox full anticoag dosing - follow up UA, thyroid studies # HLD - continue statin # history of CAD w/ 2 stents most recent 2011 - as above, continue asa and statin # T2DM - hold metformin, SSI # hypothyroidism - continue synthroid, follow up thyroid studies ordered # L breast cancer s/p lumpectomy - outpatient follow up recommended
[2020-01-14] MEDS ORDERED: Enoxaparin Sodium 80 MG/0.8 ML SYRINGE SC SCH ×2 (01:45→21:00)
[2020-01-14 02:20] LABS: Troponin I 0.017 ng/mL (< 0.028)
[2020-01-14] MEDS ORDERED: Insulin Regular 300 UNITS/3 ML VIAL SC PRN (02:25)
[2020-01-14] MEDS ORDERED: Dextrose 50% Abboject 50 ML SYRINGE SLOW IVP PRN (02:25)
[2020-01-14] MEDS ORDERED: Dextrose 5% in Water 1,000 ML IV PRN (02:25)
[2020-01-14 02:27] LABS: Bacteria/HPF None Seen HPF (None Seen); Bilirubin Negative (Negative); Blood, Urine Negative (Negative); Clarity Clear (Clear); Glucose, Urine (Dipstick) Normal (Negative); Leukocyte Negative Leu/uL (Negative); Nitrite Negative (Negative); Protein, Urine (Dipstick) Negative (Neg-Trace); RBC/HPF 0-3 HPF (0-3); Squamous Epithelial 0-3 HPF (0-3); Urobilinogen Normal mg/dL (Less than 2)
[2020-01-14 04:22] LABS: #Basophils 0.1 thou/uL (0.0-0.2); #Eosinphils 0.2 thou/uL (0.0-0.7); #Lymphocytes 3.1 thou/uL (1.20-3.40); #Monocytes 0.8 thou/uL (0.11-0.59); #Neutrophils 5.7 thou/uL (1.40-6.50); %Basophils 0.5 % (0.0-1.0); %Lymphocytes 31.8 % (21.0-51.0); %Monocytes 7.8 % (0.0-10.0); %Neutrophils 57.8 % (42.0-75.0); Hemoglobin 11.8 g/dL (12.0-16.0); Mean Corpuscular HGB CONC 31.5 g/dL (32.0-36.0); Mean Corpuscular Hemoglobin 30.4 pg (27.0-31.0); Mean Corpuscular Volume 96.6 fL (78.0-98.0); Platelet Count 298 thou/uL (130-400); RBC Distribution Width 12.5 % (11.5-14.5); Red Blood Cell (RBC) Count 3.89 mill/uL (4.20-5.40); White Blood Cell (WBC) Count 9.8 thou/uL (4.8-10.8)
[2020-01-14 04:53] LABS: Anion Gap 13 mmol/L (10-20); BUN (Urea Nitrogen) 10 mg/dL (9.8-20.1); Calc. Creatinine Clearance 86 mL/min (70-130); Calcium 9.3 mg/dL (7.8-10.44); Carbon Dioxide 26 mmol/L (23-31); Chloride 107 mmol/L (98-107); Estimated GFR-MDRD 83; Glucose 108 mg/dL (83-110); Magnesium 1.7 mg/dL (1.6-2.6); Potassium 3.9 mmol/L (3.5-5.1); Sodium 142 mmol/L (136-145)
[2020-01-14 05:05] LABS: Free T4 (Free Thyroxine) 1.26 ng/dL (0.70-1.48); Thyroid Stimulating Hormone 0.2111 uIU/mL (0.35-4.94)
[2020-01-14] MEDS: Levothyroxine Sodium 125 MCG TAB PO SCH (05:21)
[2020-01-14] MEDS: Aspirin 81 mg Enteric Coated Tablet PO SCH (08:13)
[2020-01-14] MEDS: Famotidine 20 MG TAB PO SCH ×2 (08:13→20:09)
[2020-01-14] MEDS: Atorvastatin Calcium 20 MG TAB PO SCH (08:14)
[2020-01-14] MEDS: Anastrozole 1 MG TAB PO SCH (08:14)
[2020-01-14] MEDS: Polyethylene Glycol 3350 17 GM Packet PO SCH (08:14)
--- NOTE | 2020-01-14 14:26 | CON ---
DATE OF CONSULTATION: 01/14/2020 REASON FOR CONSULTATION: Atrial fibrillation. HISTORY OF PRESENT ILLNESS: Ms. Fregoso is a very pleasant 74-year-old woman, who was seen and evaluated in the past. She has a history of CAD, status post stent placement in addition venous insufficiency, re-presented with palpitation. She was found to be in atrial fibrillation, it is a new diagnosis for her. Currently during my visit, she is rate controlled. Not on IV medications. PAST MEDICAL HISTORY: As above include hyperlipidemia, diabetes mellitus, breast cancer, hypertension, DVT, hypothyroidism, and hyperlipidemia. HOME MEDICATIONS: Include; 1. Lipitor. 2. Levothyroxine. 3. Metformin. 4. Losartan. 5. Aspirin. PAST SURGICAL HISTORY: Surgical history CAD status post stent placement in 2011, eye surgery, cholecystectomy, lumpectomy, femur repair, and left femur fracture repair. SOCIAL HISTORY: No current tobacco or alcohol use. ALLERGIES: NONE. REVIEW OF SYSTEMS: A 10-point review of systems is reviewed as above, otherwise negative. PHYSICAL EXAMINATION: GENERAL: Patient is a pleasant female who is in no acute distress. The patient appears their stated age. VITAL SIGNS: Blood pressure 158/82, pulse 103, and respirations 20. NEUROLOGIC: The patient is alert and oriented x3 with no focal neurologic deficits. HEENT: Sclerae without icterus. Mouth has moist mucous membranes with normal pallor. NECK: No JVD. Carotid upstroke brisk. No bruits bilaterally. LUNGS: Clear to auscultation with unlabored respirations. BACK: No scoliosis or kyphosis. CARDIAC: Irregularly irregular with normal S1 and S2. No S3 or S4 noted. No significant rubs, murmurs, thrills, or gallops noted throughout the precordium. PMI is not displaced. There is no parasternal heave. ABDOMEN: Soft, nontender, nondistended. No peritoneal signs present. No hepatosplenomegaly. No abnormal striae. EXTREMITIES: 2+ femoral and 2+ dorsalis pedis pulses. No cyanosis, clubbing, or edema. SKIN: No gross abnormalities. PERTINENT LABORATORY DATA: Hemoglobin 11.8 and hematocrit 37.6. IMPRESSION: 1. New onset atrial fibrillation. 2. Coronary artery disease. 3. Status post stent placement. RECOMMENDATIONS: The patient appears to be rate controlled on p.o. medications. She is not on IV medication. We will recommend discontinuing enoxaparin and adding Eliquis 5 mg b.i.d. We will recommend adding Cardizem 120 one p.o. q.a.m. As long as she is rate controlled and feeling better, will be okay from my standpoint to discharge home with close outpatient followup. Job ID: [id number]
[2020-01-14] MEDS: Apixaban 5 MG TAB PO SCH (20:09)
[2020-01-15 04:34] LABS: #Basophils 0.1 thou/uL (0.0-0.2); #Eosinphils 0.2 thou/uL (0.0-0.7); #Lymphocytes 2.4 thou/uL (1.20-3.40); #Monocytes 0.7 thou/uL (0.11-0.59); #Neutrophils 6.6 thou/uL (1.40-6.50); %Basophils 0.7 % (0.0-1.0); %Eosinophils 1.6 % (0.0-10.0); %Lymphocytes 24.2 % (21.0-51.0); %Monocytes 7.1 % (0.0-10.0); %Neutrophils 66.4 % (42.0-75.0); Hemoglobin 11.3 g/dL (12.0-16.0); Mean Corpuscular HGB CONC 31.2 g/dL (32.0-36.0); Mean Corpuscular Hemoglobin 30.2 pg (27.0-31.0); Mean Platelet Volume 8.3 fL (7.4-10.4); Platelet Count 274 thou/uL (130-400); RBC Distribution Width 12.4 % (11.5-14.5); Red Blood Cell (RBC) Count 3.73 mill/uL (4.20-5.40); White Blood Cell (WBC) Count 9.9 thou/uL (4.8-10.8)
[2020-01-15 04:57] LABS: Anion Gap 14 mmol/L (10-20); BUN (Urea Nitrogen) 15 mg/dL (9.8-20.1); Calc. Creatinine Clearance 92 mL/min (70-130); Calcium 8.8 mg/dL (7.8-10.44); Carbon Dioxide 26 mmol/L (23-31); Chloride 106 mmol/L (98-107); Estimated GFR-MDRD 89; Glucose 109 mg/dL (83-110); Magnesium 1.6 mg/dL (1.6-2.6); Potassium 3.8 mmol/L (3.5-5.1); Sodium 142 mmol/L (136-145)
[2020-01-15] MEDS: Levothyroxine Sodium 125 MCG TAB PO SCH (05:39)
[2020-01-15] MEDS: Apixaban 5 MG TAB PO SCH (09:31)
[2020-01-15] MEDS: Aspirin 81 mg Enteric Coated Tablet PO SCH (09:31)
[2020-01-15] MEDS: Anastrozole 1 MG TAB PO SCH (09:31)
[2020-01-15] MEDS: Atorvastatin Calcium 20 MG TAB PO SCH (09:31)
[2020-01-15] MEDS: Polyethylene Glycol 3350 17 GM Packet PO SCH (09:32)
[2020-01-15] MEDS: Famotidine 20 MG TAB PO SCH (09:32)
[2020-01-15 11:22] VITALS: TEMP 97.5
[2020-01-15 12:35] VITALS: BP 122/78
--- NOTE | 2020-01-15 15:11 | EKG ---
Test Reason : TACHYCARDIA Blood Pressure : / mmHG Vent. Rate : 139 BPM Atrial Rate : 139 BPM P-R Int : 174 ms QRS Dur : 078 ms QT Int : 180 ms P-R-T Axes : 000 014 175 degrees QTc Int : 273 ms Sinus tachycardia Nonspecific ST and T wave abnormality Abnormal ECG Left ventricular hypertrophy Lateral ischemia Confirmed by NARAYAN ACOSTA, CRIS King ([id number]), website/blog editor HAROLDO PERSAUD ([id number]) on 01/15/2020 3:10:34 PM Referred By: Confirmed By:CRIS BUSCH MD
--- NOTE | 2020-01-17 14:33 | DIS ---
DATE OF ADMISSION: 01/13/2020 DATE OF DISCHARGE: 01/15/2020 HOSPITAL COURSE: Ms. Fregoso is a 74-year-old female with a medical history of coronary artery disease, status post stent placement; type 2 diabetes; and hypothyroidism, who presented to the ED for dizziness and palpitations. She was diagnosed with new onset atrial fibrillation with rapid ventricular response. She was rate controlled with p.o. medications and did not require IV intervention. Cardiology was consulted and recommended to continue anticoagulation with Eliquis of 5 mg b.i.d. and adding Cardizem 120 every morning. The patient remained rate controlled throughout inpatient stay and symptoms resolved. She was discharged with followup appointments with Cardiology. DISCHARGE MEDICATIONS: New medications: Apixaban 5 mg b.i.d., Cardizem CD 120 mg daily. Continued medications: Levothyroxine, metformin, atorvastatin, calcium carbonate, anastrozole, ascorbic acid, MiraLAX, aspirin, and acetaminophen. Discontinued medications: Losartan and ibuprofen. Job ID: [id number]
== END 2020-01-15 15:30 | disposition home or self-care (01) ==
LOC: ERS 18:32 → 2NO 22:15
PROVIDERS: ADMIT Internal Medicine; ATTEND Internal Medicine
DX: I48.91 Unspecified atrial fibrillation (principal); I48.92 Unspecified atrial flutter; E03.9 Hypothyroidism, unspecified; E11.9 Type 2 diabetes mellitus without complications; I25.10 Atherosclerotic heart disease of native coronary artery without angina pectoris; E78.5 Hyperlipidemia, unspecified; Z79.811 Long term (current) use of aromatase inhibitors; Z79.82 Long term (current) use of aspirin; Z79.84 Long term (current) use of oral hypoglycemic drugs; Z79.899 Other long term (current) drug therapy
CPT/HCPCS: 71275; 80048 ×2; 81001; 82962 ×2; 83735 ×2; 83880; 84439; 84443; 84484 ×3; 85025 ×2; 93005; 93306; 94760; 96361; 96372; 96374; 97116 ×2; 97139 ×3; 97530; 99285; G0378 ×4; 36415; 36416; 80053; 93010; J1650; Q9967

== ENCOUNTER 2020-03-07 20:04 | Emergency (ER) | payer MEDICARE ==
[2020-03-07 20:49] LABS: #Eosinphils 0.1 thou/uL (0.0-0.7); #Lymphocytes 1.9 thou/uL (1.20-3.40); #Monocytes 0.8 thou/uL (0.11-0.59); #Neutrophils 8.8 thou/uL (1.40-6.50); %Basophils 0.3 % (0.0-1.0); %Eosinophils 0.8 % (0.0-10.0); %Lymphocytes 16.6 % (21.0-51.0); %Monocytes 6.9 % (0.0-10.0); %Neutrophils 75.5 % (42.0-75.0); Hemoglobin 10.7 g/dL (12.0-16.0); Mean Corpuscular HGB CONC 31.4 g/dL (32.0-36.0); Mean Corpuscular Hemoglobin 28.1 pg (27.0-31.0); Mean Corpuscular Volume 89.2 fL (78.0-98.0); Mean Platelet Volume 7.7 fL (7.4-10.4); Platelet Count 317 thou/uL (130-400); Red Blood Cell (RBC) Count 3.81 mill/uL (4.20-5.40); White Blood Cell (WBC) Count 11.7 thou/uL (4.8-10.8)
[2020-03-07 21:10] LABS: ALT (SGPT) 17 U/L (8-55); AST (SGOT) 24 U/L (5-34); Albumin 3.9 g/dL (3.4-4.8); Alkaline Phosphatase 106 U/L (40-110); Anion Gap 14 mmol/L (10-20); BUN (Urea Nitrogen) 18 mg/dL (9.8-20.1); Bilirubin, Total 1.1 mg/dL (0.2-1.2); Calc. Creatinine Clearance 0 mL/min (70-130); Calcium 9.1 mg/dL (7.8-10.44); Carbon Dioxide 26 mmol/L (23-31); Chloride 103 mmol/L (98-107); Estimated GFR-MDRD 45; Globulin 3.2 g/dL (2.4-3.5); Glucose 119 mg/dL (83-110); Potassium 4.1 mmol/L (3.5-5.1); Protein, Total 7.1 g/dL (6.0-8.3); Sodium 139 mmol/L (136-145)
--- NOTE | 2020-03-07 21:18 | RAD ---
Chest AP view INDICATION: Dizziness with flex swelling COMPARISON: January 13, 2019 FINDINGS: Lungs: The lungs are clear Cardiac silhouette: Persistent moderate cardiomegaly Pulmonary vasculature: Normal Pleural spaces: No pleural effusion or pneumothorax is demonstrated. Upper abdomen: No abnormality seen. Osseous structures: No acute osseous abnormality. Additional findings: None. IMPRESSION: Stable moderate cardiomegaly
[2020-03-07 21:49] LABS: Bilirubin Negative (Negative); Blood, Urine Negative (Negative); Clarity Turbid (Clear); Glucose, Urine (Dipstick) Normal (Negative); Ketone, Urine Trace mg/dL (Negative); Leukocyte 250 Leu/uL (Negative); Nitrite Negative (Negative); Protein, Urine (Dipstick) 100 mg/dL (Neg-Trace); RBC/HPF None Seen HPF (0-3); pH, Urine 5.5 (5.0-9.0)
[2020-03-07 21:58] LABS: Bacteria/HPF Rare-Few HPF (None Seen)
[2020-03-07] MEDS ORDERED: Cefdinir 300 MG CAP PO SCH (22:45)
== END 2020-03-07 22:47 | disposition home or self-care (01) ==
LOC: ERS 20:04
DX: N39.0 Urinary tract infection, site not specified (principal); R53.1 Weakness; R60.0 Localized edema; E78.5 Hyperlipidemia, unspecified; E78.00 Pure hypercholesterolemia, unspecified; I25.10 Atherosclerotic heart disease of native coronary artery without angina pectoris; E11.9 Type 2 diabetes mellitus without complications; E03.9 Hypothyroidism, unspecified; C50.912 Malignant neoplasm of unspecified site of left female breast; Z79.82 Long term (current) use of aspirin; Z79.899 Other long term (current) drug therapy; Z79.84 Long term (current) use of oral hypoglycemic drugs; Z79.01 Long term (current) use of anticoagulants
CPT/HCPCS: 71045; 80053; 81003; 81015; 83880; 84484; 85025; 87077; 87086; 93005

== ENCOUNTER 2020-03-13 10:03 | Day surgery (SDC) | payer MEDICARE ==
[2020-03-07 10:25] VITALS: BMI 31.2
[2020-03-13] MEDS ORDERED: PROPOFOL 200 MG/20 ML VIAL ONE (11:57)
[2020-03-13] MEDS ORDERED: Lidocaine 1% PF 5 ML VIAL ONE (11:57)
[2020-03-13] MEDS ORDERED: Benzocaine 20% Spray 60 ML CAN ONE (12:20)
[2020-03-13] MEDS ORDERED: hydrALAZINE 20 MG/ML VIAL ONE (12:27)
[2020-03-13] MEDS ORDERED: Apixaban 5 MG TAB PO SCH (13:00)
--- NOTE | 2020-03-15 14:12 | OP ---
DATE OF PROCEDURE: 03/13/2020 PREPROCEDURE DIAGNOSIS: Atrial fibrillation. POSTPROCEDURE DIAGNOSIS: Sinus rhythm. PROCEDURE PERFORMED: Synchronized cardioversion. INDICATIONS FOR PROCEDURE: The patient was consented for the procedure. I discussed the procedure in full detail with Thierry Ildefonso as an outpatient. DESCRIPTION OF PROCEDURE: Conscious sedation was performed with propofol. Successful synchronized cardioversion was performed with 150 joules. IMPRESSION: Successful synchronized cardioversion. Job ID: [id number]
== END 2020-03-13 13:35 | disposition home or self-care (01) ==
LOC: CCL 10:03
PROVIDERS: ATTEND Internal Medicine Cardiovascular Disease
PROC: 5A2204Z Restoration of Cardiac Rhythm, Single (ICD-10-PCS; principal; 2020-03-13)
DX: I48.19 Other persistent atrial fibrillation (principal); I48.92 Unspecified atrial flutter; I25.10 Atherosclerotic heart disease of native coronary artery without angina pectoris; I10 Essential (primary) hypertension; I83.93 Asymptomatic varicose veins of bilateral lower extremities; E11.9 Type 2 diabetes mellitus without complications; E78.5 Hyperlipidemia, unspecified; E03.9 Hypothyroidism, unspecified; M85.80 Other specified disorders of bone density and structure, unspecified site; Z79.01 Long term (current) use of anticoagulants; Z79.84 Long term (current) use of oral hypoglycemic drugs; Z79.811 Long term (current) use of aromatase inhibitors; Z79.899 Other long term (current) drug therapy
CPT/HCPCS: 92960; 93005; 93010; J0360; J2704

== ENCOUNTER 2020-03-22 15:42 | Observation (INO) | payer MEDICARE ==
[2020-03-22 16:19] LABS: #Basophils 0.1 thou/uL (0.0-0.2); #Eosinphils 0.2 thou/uL (0.0-0.7); #Lymphocytes 2.4 thou/uL (1.20-3.40); #Monocytes 0.6 thou/uL (0.11-0.59); #Neutrophils 5.5 thou/uL (1.40-6.50); %Basophils 0.7 % (0.0-1.0); %Eosinophils 2.2 % (0.0-10.0); %Lymphocytes 27.6 % (21.0-51.0); %Neutrophils 62.5 % (42.0-75.0); Hemoglobin 11.2 g/dL (12.0-16.0); Mean Corpuscular HGB CONC 31.7 g/dL (32.0-36.0); Mean Corpuscular Hemoglobin 27.7 pg (27.0-31.0); Mean Corpuscular Volume 87.4 fL (78.0-98.0); Mean Platelet Volume 7.6 fL (7.4-10.4); Platelet Count 344 thou/uL (130-400); RBC Distribution Width 13.8 % (11.5-14.5); Red Blood Cell (RBC) Count 4.03 mill/uL (4.20-5.40); White Blood Cell (WBC) Count 8.8 thou/uL (4.8-10.8)
[2020-03-22 16:30] LABS: ALT (SGPT) 20 U/L (8-55); AST (SGOT) 28 U/L (5-34); Albumin 3.8 g/dL (3.4-4.8); Alkaline Phosphatase 109 U/L (40-110); Anion Gap 12 mmol/L (10-20); BUN (Urea Nitrogen) 23 mg/dL (9.8-20.1); Bilirubin, Total 0.9 mg/dL (0.2-1.2); CK (CPK) 50 U/L (29-168); Calc. Creatinine Clearance 0 mL/min (70-130); Calcium 9.2 mg/dL (7.8-10.44); Carbon Dioxide 27 mmol/L (23-31); Chloride 104 mmol/L (98-107); Estimated GFR-MDRD 39; Globulin 3.4 g/dL (2.4-3.5); Glucose 122 mg/dL (83-110); Potassium 4.9 mmol/L (3.5-5.1); Protein, Total 7.2 g/dL (6.0-8.3); Sodium 138 mmol/L (136-145)
[2020-03-22 16:53] LABS: CKMB 0.9 ng/mL (0-6.6)
[2020-03-22] MEDS ORDERED: Aspirin Chewable 81 MG TAB ONE (17:31)
--- NOTE | 2020-03-22 18:27 | RAD ---
PORTABLE CHEST: 03/22/20 PROVIDED CLINICAL HISTORY: Bradycardia. FINDINGS: Comparison 03/07/20. Enlargement of the cardiac silhouette persists. Vascular calcifications again noted involving the aor tic arch. No focal consolidation, pleural fluid, or pneumothorax apparent. IMPRESSION: Cardiomegaly without evidence for an acute cardiopulmonary process. POS: [facility]
[2020-03-22] MEDS ORDERED: Acetaminophen 325 MG TAB PO PRN (18:37)
--- NOTE | 2020-03-22 18:50 | PDOC.HHP ---
Hospitalist HPI - History of Present Illness Dizziness History of Present Illness: This patient is a 75-year-old female who apparently was having some atrial fibrillation and had cardioversion by Dr. Pringle about 10 days ago. The patient said she felt fine since that time however about 2 days ago she started experiencing some generalized dizziness and lightheadedness. There were times she felt like she might pass out. This morning the patient fell asleep but awoke feeling a little short of breath. She has no chest pain she has had no shortness of breath since that time but intermittently does have some mild dyspnea on exertion. Patient presented to her primary care provider's office today where she was noted to be bradycardic. It was concerning that the bradycardia might be the source of her symptoms and she was referred to the emergency department. At present the patient feels generally well says she is fine as long as she is lying in bed. ED Course: Patient received an aspirin. On the monitor the patient was bradycardic. Hospitalist ROS - Review of Systems Constitutional: denies: fever, chills Respiratory: denies: cough, shortness of breath Cardiovascular: denies: chest pain, palpitations, orthopnea Gastrointestinal: denies: nausea, vomiting, abdominal pain All other systems reviewed; all pertinent +/- noted in HPI/Subj - Medication Medications: Metformin 500 mg 2 p.o. twice daily Multitak 400 mg p.o. twice daily Levothyroxine 125 mcg p.o. daily Metoprolol 50 mg p.o. twice daily Anastrozole 1 mg p.o. daily Lasix 40 mg daily Potassium 20 mEq p.o. daily Eliquis 5 mg p.o. daily atorvastatin 20 mg p.o. daily Hospitalist History - Past Medical History Source: patient Cardiac: reports: AFIB, Hyperlipidemia Heme/Onc: reports: Cancer (Breast) Endocrine: reports: Hyperthyroidism - Past Surgical History Past Surgical History: reports: Breast Biopsy, Cholecystectomy - Family History Family History: reports: cerebrovascular accident, diabetes mellitus - Social History Smoking Status: Never smoker Alcohol: reports: None Drugs: reports: none Other Social History: Full code. Daughter Sinai is her surrogate. - Exam General Appearance: NAD, awake alert Heart: RRR, no murmur, no gallops, no rubs, normal peripheral pulses Respiratory: CTAB, no wheezes, no rales, no ronchi, normal chest expansion, no tachypnea, normal percussion Gastrointestinal: soft, non-tender, non-distended, normal bowel sounds, no palpable masses, no hepatomegaly, no splenomegaly, no bruit Extremities: no cyanosis, no clubbing, no edema Skin: normal turgor Neurological: no focal deficits Musculoskeletal: normal tone, normal strength, no muscle wasting Psychiatric: normal affect, normal behavior, A&O x 3 Hospitalist Results - Labs Result Diagrams: 03/22/20 16:10 03/22/20 16:10 Lab results: WBC 8.8 thou/uL (4.8-10.8) 03/22/20 16:10 Hgb 11.2 g/dL (12.0-16.0) L 03/22/20 16:10 Hct 35.2 % (36.0-47.0) L 03/22/20 16:10 MCV 87.4 fL (78.0-98.0) 03/22/20 16:10 Plt Count 344 thou/uL (130-400) 03/22/20 16:10 Neutrophils % 62.5 % (42.0-75.0) 03/22/20 16:10 Sodium 138 mmol/L (136-145) 03/22/20 16:10 Potassium 4.9 mmol/L (3.5-5.1) 03/22/20 16:10 Chloride 104 mmol/L (98-107) 03/22/20 16:10 Carbon Dioxide 27 mmol/L (23-31) 03/22/20 16:10 BUN 23 mg/dL (9.8-20.1) H 03/22/20 16:10 Creatinine 1.33 mg/dL (0.6-1.1) H 03/22/20 16:10 Glucose 122 mg/dL (83-110) H 03/22/20 16:10 Calcium 9.2 mg/dL (7.8-10.44) 03/22/20 16:10 Total Bilirubin 0.9 mg/dL (0.2-1.2) 03/22/20 16:10 AST 28 U/L (5-34) 03/22/20 16:10 ALT 20 U/L (8-55) 03/22/20 16:10 Alkaline Phosphatase 109 U/L (40-110) 03/22/20 16:10 Creatine Kinase 50 U/L (29-168) 03/22/20 16:10 CK-MB (CK-2) 0.9 ng/mL (0-6.6) 03/22/20 16:10 Troponin I 0.031 ng/mL (< 0.028) H 03/22/20 16:10 Serum Total Protein 7.2 g/dL (6.0-8.3) 03/22/20 16:10 Albumin 3.8 g/dL (3.4-4.8) 03/22/20 16:10 Hospitalist H&P A/P - Problem (1) Symptomatic bradycardia Code(s): R00.1 - BRADYCARDIA, UNSPECIFIED Status: Acute (2) Atrial fibrillation Code(s): I48.91 - UNSPECIFIED ATRIAL FIBRILLATION Status: Acute (3) ROBERT (acute kidney injury) Code(s): N17.9 - ACUTE KIDNEY FAILURE, UNSPECIFIED Status: Acute (4) Diabetes mellitus Code(s): E11.9 - TYPE 2 DIABETES MELLITUS WITHOUT COMPLICATIONS Status: Acute (5) Hypothyroidism Code(s): E03.9 - HYPOTHYROIDISM, UNSPECIFIED Status: Acute (6) HLD (hyperlipidemia) Code(s): E78.5 - HYPERLIPIDEMIA, UNSPECIFIED Status: Acute - Plan Plan: Symptomatic bradycardia: Patient recently underwent cardioversion for atrial fibrillation. She is on Multitak and metoprolol 50 mg twice daily. Today she presented with dizziness and bradycardia both in her PCPs office and initially here in the ER. Suspect she may need a little less beta-blockade now that she is cardioverted. Patient will be placed in observation on telemetry. We will hold her beta-blockers for now. Made Dr. Pringle aware of the patient's admission. Will consult him. Check a TSH in the morning. Acute kidney injury: Patient has risk factors for renal disease however she is generally had stage II chronic kidney disease at worst. Now she is got a worsening GFR. Will obtain a renal ultrasound. Nephrology consult. She is on daily Lasix and potassium. I will hold those for now. Diabetes mellitus: Given her worsening renal function will hold on her metformin for now. Accu- Cheks and sliding scale. History of atrial fibrillation: Patient was recently cardioverted. She remains on Eliquis and Multitak. She is also on the beta-alicia. We will continue the Multitak and Eliquis. Hyperlipidemia: Continue atorvastatin. Hypothyroidism: In light of her bradycardia we will check a TSH. Continue with her levothyroxine dose.
[2020-03-22 19:42] LABS: Troponin I 0.023 ng/mL (< 0.028)
--- NOTE | 2020-03-22 19:51 | ULT ---
Bilateral renal ultrasound CLINICAL INDICATION: Acute renal insufficiency. COMPARISON: None FINDINGS: Right kidney: There is no evidence of a renal mass, renal calculus, or hydronephrosis seen. The right kidney measures 11.2 cm x 4.7 cm. Left kidney: There is no evidence of a renal mass, renal calculus, or hydronephrosis. The left kidney measures 11 cm x 5.6 cm. Urinary bladder: Within normal limits for degree of distention. Urinary bladder volume is 226 mL. IMPRESSION: No evidence of hydronephrosis.
[2020-03-22] MEDS ORDERED: Atorvastatin Calcium 20 MG TAB PO SCH (21:00)
[2020-03-22] MEDS: Apixaban 5 MG TAB PO SCH (23:17)
[2020-03-23 02:00] VITALS: BMI 32.3
[2020-03-23 04:46] LABS: #Basophils 0.1 thou/uL (0.0-0.2); #Eosinphils 0.3 thou/uL (0.0-0.7); #Lymphocytes 2.8 thou/uL (1.20-3.40); #Monocytes 0.8 thou/uL (0.11-0.59); #Neutrophils 5.1 thou/uL (1.40-6.50); %Basophils 0.8 % (0.0-1.0); %Lymphocytes 30.5 % (21.0-51.0); %Monocytes 9.3 % (0.0-10.0); %Neutrophils 56.4 % (42.0-75.0); Hemoglobin 10.3 g/dL (12.0-16.0); Mean Corpuscular HGB CONC 29.5 g/dL (32.0-36.0); Mean Corpuscular Volume 88.3 fL (78.0-98.0); Platelet Count 295 thou/uL (130-400); RBC Distribution Width 14.1 % (11.5-14.5); Red Blood Cell (RBC) Count 3.96 mill/uL (4.20-5.40)
[2020-03-23 05:04] LABS: Anion Gap 11 mmol/L (10-20); BUN (Urea Nitrogen) 17 mg/dL (9.8-20.1); Calc. Creatinine Clearance 77 mL/min (70-130); Carbon Dioxide 26 mmol/L (23-31); Chloride 107 mmol/L (98-107); Estimated GFR-MDRD 74; Glucose 70 mg/dL (83-110); Potassium 3.9 mmol/L (3.5-5.1); Sodium 140 mmol/L (136-145)
[2020-03-23] MEDS ORDERED: Levothyroxine Sodium 125 MCG TAB PO SCH (06:00)
[2020-03-23] MEDS ORDERED: Dronedarone HCl 400 MG TAB PO SCH (08:00)
[2020-03-23] MEDS: Apixaban 5 MG TAB PO SCH (08:32)
[2020-03-23] MEDS ORDERED: Anastrozole 1 MG TAB PO SCH (09:00)
--- NOTE | 2020-03-23 12:30 | CON ---
DATE OF CONSULTATION: 03/23/2020 CONSULTING PHYSICIAN: Dr. Honeycutt. REASON FOR CONSULTATION: ROBERT. REASON FOR ADMISSION: Dizziness. HISTORY OF PRESENT ILLNESS: A 75-year-old female with history of atrial fibrillation, hyperlipidemia, hypertension, CA of breast, came to the hospital with above complaints and was found to have acute kidney injury. She feels better with IV fluids. She is feeling better. PAST MEDICAL HISTORY: Positive for atrial fibrillation, hyperlipidemia, CA of breast, hypothyroidism. PAST SURGICAL HISTORY: Breast biopsy, cholecystectomy. HOME MEDICATIONS: Reviewed. ALLERGIES: NO KNOWN DRUG ALLERGIES. SOCIAL HISTORY: No smoking, alcohol, or illicit drug abuse. FAMILY HISTORY: Positive for diabetes. REVIEW OF SYSTEMS: The following complete review of systems was negative, unless otherwise mentioned in the HPI or below: Constitutional: Weight loss or gain, ability to conduct usual activities. Skin: Rash, itching. Eyes: Double vision, pain. ENT/Mouth: Nose bleeding, neck stiffness, pain, tenderness. Cardiovascular: Palpitations, dyspnea on exertion, orthopnea. Respiratory: Shortness of breath, wheezing, cough, hemoptysis, fever or night sweats. Gastrointestinal: Poor appetite, abdominal pain, heartburn, nausea, vomiting, constipation, or diarrhea. Genitourinary: Urgency, frequency, dysuria, nocturia. Musculoskeletal: Pain, swelling. Neurologic/Psychiatric: Anxiety, depression. Allergy/Immunologic: Skin rash, bleeding tendency. PHYSICAL EXAMINATION: GENERAL: Obese female, in no apparent distress. VITAL SIGNS: Temperature 97.6, pulse 52, respiratory rate 18, blood pressure 158/70. HEENT: Atraumatic and normocephalic. Oral mucosa moist. NECK: Supple. CV: S1 and S2 heard. RESPIRATORY: Clear. GASTROINTESTINAL: Abdomen is soft. Obese. MUSCULOSKELETAL: No edema. DERMATOLOGIC: No skin rash. NEUROLOGIC: Alert and awake. PSYCHIATRIC: Normal mood and affect. LABORATORY DATA: Hemoglobin is 10.3. Potassium 3.9; BUN is 17; creatinine 0.7, creatinine was 1.3 on admission, baseline is around 0.6. ASSESSMENT AND PLAN: 1. Acute kidney injury, much better with hydration. 2. Obesity. 3. Anemia of chronic disease. 4. History of hypertension, stable. I will sign off. Please call back with any concerns or questions. Thank you for the consult. Job ID: [id number]
[2020-03-23 15:11] VITALS: BP 141/65; TEMP 97.6
--- NOTE | 2020-03-23 15:40 | CON ---
DATE OF CONSULTATION: 03/23/2020 REASON FOR CONSULTATION: Bradycardia. HISTORY: A very pleasant 75-year-old woman, whom I have seen and evaluated in the past. She has a history of CAD, status post stent placement in addition to venous insufficiency. She also has a history of atrial fibrillation. She recently underwent cardioversion successfully one week ago. She presented to the emergency room with bradycardia. She did have weakness and fatigue present. She is on Multaq in addition to metoprolol 50 mg one p.o. b.i.d. HOME MEDICATIONS: Include; 1. Levothyroxine. 2. Calcium carbonate. 3. Polyethylene. 4. Vitamin C. 5. Lipitor. 6. Metformin. 7. Metoprolol. 8. Lasix. 9. Potassium. 10. Eliquis. PAST MEDICAL HISTORY: As above including breast cancer, diabetes mellitus, hyperlipidemia, hypertension, previous DVT, osteopenia, CAD, status post stent placement in 2011, eye surgery, cholecystectomy, lumpectomy, left femur fracture repair. SOCIAL HISTORY: No current tobacco or alcohol abuse. ALLERGIES: NONE. REVIEW OF SYSTEMS: A 10-point review of systems is reviewed and is as above, otherwise negative. PHYSICAL EXAMINATION: GENERAL: Patient is a pleasant female, who is in no acute distress. The patient appears their stated age. VITAL SIGNS: Blood pressure 141/65, pulse 67, temperature 97.9. NEUROLOGIC: The patient is alert and oriented x3 with no focal neurologic deficits. HEENT: Sclerae without icterus. Mouth has moist mucous membranes with normal pallor. NECK: No JVD. Carotid upstroke brisk. No bruits bilaterally. LUNGS: Clear to auscultation with unlabored respirations. BACK: No scoliosis or kyphosis. CARDIAC: Regular rate and rhythm with normal S1 and S2. No S3 or S4 noted. No significant rubs, murmurs, thrills, or gallops noted throughout the precordium. PMI is not displaced. There is no parasternal heave. ABDOMEN: Soft, nontender, nondistended. No peritoneal signs present. No hepatosplenomegaly. No abnormal striae. EXTREMITIES: 2+ femoral and 2+ dorsalis pedis pulses. No cyanosis, clubbing, or edema. SKIN: No gross abnormalities. PERTINENT LABORATORY DATA: Hemoglobin 10.3, hematocrit 34.9. Creatinine 0.76. IMPRESSION: 1. Bradycardia. 2. Atrial fibrillation. 3. Coronary artery disease. 4. Status post bypass surgery. RECOMMENDATIONS: Once she had her cardioversion performed, she was likely on too much beta alicia therapy. We will decrease the metoprolol from 50 b.i.d. to 12.5 b.i.d. Her heart rates has been in the 50s to 70s. From my standpoint, it would be okay for discharge with close outpatient followup. Job ID: [id number]
--- NOTE | 2020-03-24 04:14 | DIS ---
DATE OF ADMISSION: 03/22/2020 DATE OF DISCHARGE: 03/23/2020 DISCHARGE DIAGNOSES: 1. Symptomatic bradycardia. 2. Atrial fibrillation, status post recent cardioversion. 3. Coronary artery disease status post prior bypass surgery. 4. Acute kidney injury, resolved. HISTORY OF PRESENT ILLNESS: The patient is a 75-year-old female, who presented via the Emergency Department. Apparently, the patient was experiencing dizziness for a couple of days and went to see her PCP, who thought she had some symptomatic bradycardia, sent her to the Emergency Department. There, the patient was having some bradycardia into the 40s. The patient then disclosed that she had seen Dr. Pringle and had a cardioversion about 10 days prior. She was still taking Multaq and metoprolol 50 mg b.i.d. Her labs indicated a drop in her GFR from her baseline as well. Her normal GFR was upper 70s to 80s and on admission she was at 39. HOSPITAL COURSE: The patient was placed on observation. She remained on telemetry. Her troponins were initially 0.031 and decline subsequent. Her beta blockers were held as was her diuretics and potassium. She received a little bit of fluid. Following day, the patient felt well. Her heart rate had significantly improved into the 60s and 70s and remained in sinus rhythm. Case was discussed with Dr. Pringle, who saw the patient in consultation and felt it was appropriate for the patient to be discharged to home on a lower dose of beta alicia and also of note, the patient's renal function had completely normalized. She had a renal ultrasound, which was unremarkable and was seen by Nephrology, who had no further recommendations. DISPOSITION: The patient will be discharged to home. She will continue with her home medications with the exception of discontinuing her metoprolol and changing that dose to metoprolol tartrate 12.5 mg b.i.d. She is to follow up with Dr. Rao in the meantime. ACTIVITY: As tolerated. DIET: She will be on a heart healthy diet. INSTRUCTIONS: She can return to the hospital at anytime she has a need to do so. Job ID: [id number]
== END 2020-03-23 15:40 | disposition home or self-care (01) ==
LOC: ERS 15:42 → INTOOBSV 17:39 → ERHOLD 17:39 → 2NO 21:47
PROVIDERS: ADMIT Internal Medicine; ATTEND Internal Medicine
DX: R00.1 Bradycardia, unspecified (principal); R42 Dizziness and giddiness; I48.91 Unspecified atrial fibrillation; I25.10 Atherosclerotic heart disease of native coronary artery without angina pectoris; N17.9 Acute kidney failure, unspecified; E11.9 Type 2 diabetes mellitus without complications; E78.5 Hyperlipidemia, unspecified; E03.9 Hypothyroidism, unspecified; C50.912 Malignant neoplasm of unspecified site of left female breast; D63.8 Anemia in other chronic diseases classified elsewhere; M85.80 Other specified disorders of bone density and structure, unspecified site; E66.9 Obesity, unspecified; Z68.32 Body mass index [BMI] 32.0-32.9, adult; Z79.01 Long term (current) use of anticoagulants; Z79.811 Long term (current) use of aromatase inhibitors; Z79.84 Long term (current) use of oral hypoglycemic drugs; Z79.899 Other long term (current) drug therapy; Z95.1 Presence of aortocoronary bypass graft; Z95.5 Presence of coronary angioplasty implant and graft
CPT/HCPCS: 36415; 36416; 71045; 76770; 80048; 80053; 82550; 82553; 84443; 84484; 85025; 93005; 94760; 96360; G0378

== ENCOUNTER 2020-06-19 16:46 | Inpatient (IN) | payer MEDICARE, OTHER ==
--- NOTE | 2020-06-19 18:21 | RAD ---
XR Forearm Rt 2 View STANDARD INDICATION: Fall with right forearm pain FINDINGS: Bones: There is a comminuted, dorsally impacted, dorsally displaced, intra-articular distal radial fr acture. There is a mildly displaced ulnar styloid process fracture. No additional fracture is evident. Joints: No acute abnormality. Soft tissues: There is soft tissue swelling surrounding the distal right wrist and fracture site. IMPRESSION: 1. Heavily comminuted, dorsally displaced, dorsally angulated and impacted intra-articular distal rad ial fracture. 2. Mildly displaced, mildly comminuted ulnar styloid process fracture.
--- NOTE | 2020-06-19 18:33 | RAD ---
TWO VIEWS RIGHT FEMUR: Comparison: 01-13-19 History: Fell in a hole with right leg pain. FINDINGS: Two views of the right femur shows patient to status post ORIF of the femur with a plate and screws. No acute fracture is appreciated. Mild soft tissue swelling is seen. IMPRESSION: No evidence of acute osseous abnormality of the femur. POS: EAA
--- NOTE | 2020-06-19 18:34 | RAD ---
SINGLE VIEW OF THE PELVIS: History: Fell in a hole with pelvic pain. FINDINGS: Single view of the pelvis shows no evidence of acute fracture or dislocation. Hardware is partially v isualized in the proximal right femur. Degenerative changes are seen in the lumbar spine. IMPRESSION: No evidence of acute osseous abnormality. POS: EAA
--- NOTE | 2020-06-19 18:35 | RAD ---
THREE VIEWS RIGHT ANKLE: Comparison: None History: Stepped in a hole and fell, ankle pain. FINDINGS: Three views of the right ankle shows no evidence of acute fracture or dislocation. Diffuse osteopenia is seen. Moderate diffuse soft tissue swelling is seen. No degenerative changes are seen in the ankl e. IMPRESSION: No evidence of acute osseous abnormality. POS: EAA
--- NOTE | 2020-06-19 18:36 | RAD ---
TWO VIEWS RIGHT KNEE: History: Stepped in a hole and fell, knee pain. FINDINGS: Two views right knee shows no evidence of acute fracture or dislocation. Hardware is seen in the dist al femur from prior femur fracture repair. The fracture appears healed. Moderate medial soft tissue s welling is seen. Vascular calcifications are seen. Moderate degenerative changes are seen in the righ t knee. IMPRESSION: No evidence of acute osseous abnormality. POS: EAA
[2020-06-19] MEDS ORDERED: Lidocaine 1% w/Epinephrine 1:100K 20 ML VIAL ONE (18:39)
[2020-06-19 18:55] LABS: #Eosinphils 0.1 thou/uL (0.0-0.7); #Lymphocytes 1.3 thou/uL (1.20-3.40); #Monocytes 0.8 thou/uL (0.11-0.59); #Neutrophils 11.3 thou/uL (1.40-6.50); %Basophils 0.3 % (0.0-1.0); %Eosinophils 0.4 % (0.0-10.0); %Lymphocytes 9.5 % (21.0-51.0); %Monocytes 5.9 % (0.0-10.0); Hemoglobin 12.1 g/dL (12.0-16.0); Mean Corpuscular HGB CONC 32.1 g/dL (32.0-36.0); Mean Corpuscular Volume 90.6 fL (78.0-98.0); Mean Platelet Volume 9.4 fL (7.4-10.4); Platelet Count 178 thou/uL (130-400); RBC Distribution Width 17.3 % (11.5-14.5); Red Blood Cell (RBC) Count 4.16 mill/uL (4.20-5.40); White Blood Cell (WBC) Count 13.5 thou/uL (4.8-10.8)
[2020-06-19 19:19] LABS: AST (SGOT) 19 U/L (5-34); Albumin 3.3 g/dL (3.4-4.8); Alkaline Phosphatase 42 U/L (40-110); Anion Gap 17 mmol/L (10-20); BUN (Urea Nitrogen) 14 mg/dL (9.8-20.1); Bilirubin, Total 0.6 mg/dL (0.2-1.2); Calc. Creatinine Clearance 0 mL/min (70-130); Carbon Dioxide 20 mmol/L (23-31); Chloride 105 mmol/L (98-107); Estimated GFR-MDRD 77; Globulin 3.5 g/dL (2.4-3.5); Glucose 122 mg/dL (83-110); Potassium 3.9 mmol/L (3.5-5.1); Protein, Total 6.8 g/dL (6.0-8.3); Sodium 138 mmol/L (136-145)
--- NOTE | 2020-06-19 20:42 | RAD ---
2 views of the right wrist: 06/19/2020 8:14 PM CLINICAL INDICATION: Post reduction films of the right wrist fracture COMPARISON: Prior right forearm radiograph dated June 19, 2020. FINDINGS: Bones: Since the comparison examination there has been interval placement of an overlying fiberglass splint. Fracture alignment is unchanged involving the comminuted intra-articular distal radius and ulnar styloid process fractures. Joints: Scattered osteoarthrosis of the right hand and wrist are similar.. Soft Tissue: Normal.. IMPRESSION: Interval placement of an overlying fiberglass splint. Fracture alignment is unchanged..
--- NOTE | 2020-06-19 21:15 | RAD ---
Chest AP view INDICATION: Preop evaluation and history of chest pain COMPARISON: March 22, 2020 FINDINGS: Lungs: The lungs are clear Cardiac silhouette: Stable [id number] cardiomegaly. Pulmonary vasculature: Normal Pleural spaces: No pleural effusion or pneumothorax is demonstrated. Upper abdomen: No abnormality seen. Osseous structures: No acute osseous abnormality. Additional findings: None. IMPRESSION: Stable [id number] cardiomegaly without evidence of cardiac decompensation.
[2020-06-19 22:35] LABS: Bilirubin Negative (Negative); Blood, Urine Negative (Negative); Clarity Clear (Clear); Glucose, Urine (Dipstick) Normal (Negative); Ketone, Urine Negative (Negative); Leukocyte 25 Leu/uL (Negative); Nitrite Negative (Negative); Protein, Urine (Dipstick) Negative (Neg-Trace); RBC/HPF 0-3 HPF (0-3); Renal Epithelial 0-3 HPF (None Seen); Specific Gravity, Urine 1.012 (1.002-1.036); Squamous Epithelial 0-3 HPF (0-3); Urobilinogen Normal mg/dL (Less than 2); WBC/HPF 0-3 HPF (0-3)
[2020-06-19 22:44] LABS: Bacteria/HPF Rare-Few HPF (None Seen)
--- NOTE | 2020-06-19 23:00 | HP ---
This is Myron Lozano PA-C dictating a report for Chip Pickering MD. CONSULTATIONS: Orthopedics, Dr. Finney. HISTORY OF PRESENT ILLNESS: The patient is a 75-year-old woman who was walking in her front yard when she could not see a hole, stepped in it, falling down onto her right side. She put her right hand out to break her fall, and she had immediate pain in her right wrist and entire right lower extremity. The patient denied loss of consciousness. She was brought to the emergency department by ground EMS where she was noted to have a displaced right distal radius and ulnar fracture. Closed reduction was attempted with minimal change, at which time we were asked to evaluate the patient for admission and obtain Orthopedic consultation. ALLERGIES: NONE. CURRENT MEDICATIONS: 1. Metformin. 2. Multaq. 3. Levothyroxine. 4. Metoprolol. 5. Anastrozole. 6. Lasix. 7. Potassium. 8. Eliquis. 9. Atorvastatin. PAST MEDICAL HISTORY: Atrial fibrillation, hyperlipidemia, breast cancer, hypothyroidism, and diabetes. PAST SURGICAL HISTORY: Breast biopsy, cholecystectomy, and bilateral tubal ligation. SOCIAL HISTORY: The patient is currently living independently at home alone. She has family in the area, specifically her daughter. She denies drugs, tobacco, or alcohol history. REVIEW OF SYSTEMS: A ten-point review of systems is negative except otherwise stated. PHYSICAL EXAMINATION: VITAL SIGNS: Blood pressure 146/69, heart rate 84, respirations 19, oxygen saturation 98% on room air, and temperature is 97.8. GENERAL: The patient is resting comfortably in bed. She is awake, alert, conversant, appropriate. Her primary language is Greenlandic, but she speaks and understands Ethiopian very well. Vanessa Coma Scale is 15. HEENT: Head is normocephalic and atraumatic. Eyes, extraocular motion intact. PERRLA bilaterally. Ears are atraumatic without discharge. Nose is atraumatic without discharge. Oropharynx is clear. NECK: Nontender. Trachea is midline. No JVD. CHEST: Clear to auscultation with good inspiratory and expiratory effort. HEART: Regular rate and rhythm. ABDOMEN: Soft, flat, nontender with hypoactive bowel sounds. Pelvis is stable. EXTREMITIES: Neurovascularly intact x4. Right upper extremity has a sugar-tong splint in place. Her right lower extremity, upon the nurses attempting to sit the patient up in bed, the patient had significant pain to her right popliteal area. Upon my exam, on palpation, it was intermittent as to her pain there. No gross deformity was felt. Her calf was unremarkable. Her neurovascular status in all 4 extremities was intact. BACK: Atraumatic and nontender. LABORATORY FINDINGS: White blood cell count 13.5, hemoglobin 12.1, hematocrit 37.7, platelets 178. Sodium 138, potassium 3.9, chloride 105, CO2 of 20, BUN 14, creatinine 0.74, glucose 122. Urinalysis is pending. RADIOGRAPHIC FINDINGS: AP chest x-ray shows [id number] cardiomegaly, stable, without evidence of cardiac decompensation. Views of the right wrist show a comminuted intra-articular distal radius and ulnar styloid fracture. AP pelvis shows no evidence of acute osseous abnormality. Views of the right femur show no evidence of acute osseous abnormality. Views of the right knee show no evidence of acute osseous abnormality. Views of the right ankle show no evidence of acute osseous abnormality. ASSESSMENT AND PLAN: 1. Status post ground level fall. 2. Comminuted, displaced distal radius fracture. 3. Ulnar styloid fracture. 4. Right lower extremity pain without evidence of fracture. 5. Acute pain secondary to trauma. 6. History of hypertension, hyperlipidemia, atrial fibrillation, diabetes. PLAN: The plan will be to admit the patient's surgical floor. She will be made n.p.o. after midnight. We will control her glucose with sliding scale insulin. I have ordered ultrasound of her lower extremity to rule out VTE. The patient will be made n.p.o. after midnight with Orthopedics to evaluate in the morning and likely undergo her procedure tomorrow. The evaluation, examination, laboratory, and radiographic findings will be discussed with Dr. Pickering after this dictation. Dr. Finney has been notified by the emergency department. Job ID: [id number]
[2020-06-20] MEDS ORDERED: Insulin Regular 300 UNITS/3 ML VIAL SC PRN ×2 (00:13)
[2020-06-20] MEDS ORDERED: traMADol HCl 50 MG TAB PO PRN ×2 (00:13)
[2020-06-20] MEDS ORDERED: Sodium Chloride 0.9% 1,000 ML IV SCH (00:13)
[2020-06-20] MEDS ORDERED: Dextrose 5% in Water 1,000 ML IV PRN (00:13)
[2020-06-20] MEDS ORDERED: Ondansetron ODT 4 MG TAB PO PRN (00:13)
[2020-06-20] MEDS ORDERED: Dextrose 50% Abboject 50 ML SYRINGE SLOW IVP PRN (00:13)
[2020-06-20] MEDS ORDERED: Ondansetron PF 4 MG/2 ML Vial IVP PRN ×2 (00:13→00:15)
[2020-06-20] MEDS ORDERED: Cyclobenzaprine 10 MG TAB PO PRN (00:13)
[2020-06-20] MEDS ORDERED: HYDROcodone/Acetaminophen 5/325 mg Tablet PO PRN ×2 (00:15)
[2020-06-20] MEDS ORDERED: Ondansetron ODT 4 MG TAB SL PRN (00:15)
[2020-06-20] MEDS ORDERED: Lactated Ringer's 1,000 ML IV SCH (00:15)
[2020-06-20] MEDS ORDERED: Morphine 2 MG/ML VIAL SLOW IVP PRN (00:15)
[2020-06-20] MEDS ORDERED: Acetaminophen 325 MG TAB PO PRN (00:15)
[2020-06-20] MEDS ORDERED: Ibuprofen 600 MG TAB PO PRN (00:17)
[2020-06-20 00:32] VITALS: BMI 34.9
[2020-06-20] MEDS: Morphine 2 MG/ML VIAL SLOW IVP PRN ×3 (00:49→12:18)
[2020-06-20] MEDS: Acetaminophen 325 MG TAB PO SCH ×3 (05:43→17:39)
[2020-06-20 05:58] LABS: #Eosinphils 0.1 thou/uL (0.0-0.7); #Lymphocytes 1.5 thou/uL (1.20-3.40); #Monocytes 0.9 thou/uL (0.11-0.59); #Neutrophils 8.8 thou/uL (1.40-6.50); %Basophils 0.2 % (0.0-1.0); %Eosinophils 0.5 % (0.0-10.0); %Lymphocytes 13.4 % (21.0-51.0); %Monocytes 8.3 % (0.0-10.0); %Neutrophils 77.5 % (42.0-75.0); Hemoglobin 11.3 g/dL (12.0-16.0); Mean Corpuscular HGB CONC 31.4 g/dL (32.0-36.0); Mean Corpuscular Hemoglobin 28.1 pg (27.0-31.0); Mean Corpuscular Volume 89.5 fL (78.0-98.0); Mean Platelet Volume 8.3 fL (7.4-10.4); Platelet Count 247 thou/uL (130-400); RBC Distribution Width 17.1 % (11.5-14.5); Red Blood Cell (RBC) Count 4.01 mill/uL (4.20-5.40); White Blood Cell (WBC) Count 11.4 thou/uL (4.8-10.8)
[2020-06-20 06:04] LABS: PTT 32.6 sec (22.9-36.1); Prothrombin Time 13.7 sec (12.0-14.7)
[2020-06-20 06:22] LABS: Anion Gap 12 mmol/L (10-20); BUN (Urea Nitrogen) 9 mg/dL (9.8-20.1); Calc. Creatinine Clearance 103 mL/min (70-130); Calcium 8.9 mg/dL (7.8-10.44); Carbon Dioxide 24 mmol/L (23-31); Chloride 102 mmol/L (98-107); Estimated GFR-MDRD Greater than 90; Glucose 114 mg/dL (83-110); Potassium 3.8 mmol/L (3.5-5.1); Sodium 134 mmol/L (136-145)
--- NOTE | 2020-06-20 07:08 | ULT ---
BILATERAL LOWER EXTREMITY DOPPLER VENOUS ULTRASOUND: Date: 06/20/2020 INDICATION: Bilateral lower extremity pain, right greater than left, with the most severe pain in the right popli teal fossa. Bilateral lower extremity edema and recent fall. TECHNIQUE: Lennon scale, color Doppler, and vascular duplex with spectral analysis was performed of the deep venou s structures of the bilateral lower extremities. The common femoral vein, superficial femoral vein, p roximal greater saphenous vein, proximal greater profunda vein, popliteal, and posterior tibial veins were assessed. FINDINGS: Normal compression, flow, and augmentation was seen within the deep venous structures of both lower e xtremities. IMPRESSION: No evidence of deep venous thrombosis within either lower extremity. POS: BH
[2020-06-20] MEDS ORDERED: CEFAZOLIN 2 GM in Premix Bag 1 BAG IVPB SCH (07:15)
--- NOTE | 2020-06-20 08:06 | CON ---
DATE OF CONSULTATION: 06/20/2020 REQUESTING PHYSICIAN: Trauma Services. CONSULTING PHYSICIAN: Dr. Finney. REASON FOR CONSULTATION: Right wrist fracture. HISTORY OF PRESENT ILLNESS: This is a 75-year-old female, who was walking in her front yard when she stepped into a hole, falling onto her right side. She put her right hand out to break her fall and she had immediate pain in her right wrist and right lower extremity. Patient denied any head injury or loss of consciousness. She was brought to our emergency department by ground EMS, where she was noted to have a displaced right distal radius and ulna fracture. Closed reduction attempted with minimal change. We have been consulted for this reason. Currently at bedside, patient reports she is right-hand dominant. She denies any numbness or tingling in her right digits. She does report right lower extremity pain. She states that this is present throughout her entire right leg. PAST MEDICAL HISTORY: Atrial fibrillation, hyperlipidemia, breast cancer, hypothyroidism, and diabetes. PAST SURGICAL HISTORY: Breast biopsy, cholecystectomy, bilateral tubal ligation, and right femur ORIF. SOCIAL HISTORY: Patient is currently living independently. She states that she has family in the area and plans to be moving in with her daughter after this hospitalization. She denies tobacco, drug, or alcohol history. ALLERGIES: NONE. REVIEW OF SYSTEMS: A 10-point review of systems was conducted and otherwise negative, except for stated above. PHYSICAL EXAMINATION: VITAL SIGNS: Current vital signs including temperature of 98.3, pulse of 81, blood pressure of 146/81, respiratory rate of 20, and O2 saturation of 94 on room air. GENERAL: Patient is awake and alert. She is in no apparent distress. She is lying in bed at this time. No family present in the room. She is pleasant and cooperative with exam today. HEENT: Head is normocephalic and atraumatic. NECK: Supple. Trachea is midline. LUNGS: Breathing is nonlabored. EXTREMITIES: Evaluation of the right upper extremity shows a sugar-tong splint present to the right forearm. This is wrapped rather snugly down to the tips of her digits. She is able to move all five digits slightly in the dressing. Distal neurovascular status is intact. No pain on passive stretch. Evaluation of the left upper extremity shows the patient to be moving her arm independently without any signs of trauma or deformity. Bilateral lower extremities were also evaluated. There is a well-healed surgical wound on the right lateral knee at the distal femur. She seems tender to palpation throughout the right lower extremity. She is able to wiggle her toes and her ankle, however, passive movement of the leg, including the knee and the hip reproduces pain. RADIOGRAPHIC IMAGING: Reviewed today, including views of the patient's right wrist, demonstrates a distal radius fracture with comminution. There is displacement of the fracture fragments. This includes intraarticular components. Also, reviewed was a venous Doppler of the right lower extremity which shows no evidence of DVT. Right ankle, right knee, and right femur films are all unremarkable for acute fracture. ASSESSMENT: Status post fall with right distal radius fracture and continuing right lower extremity pain. PLAN: At this time, patient has been n.p.o. We will plan for surgical intervention of her right distal radius fracture later this afternoon. Risks, benefits, and alternatives were discussed at length with the patient today at bedside. She verbalizes understanding and is amenable to go forward with this. Regarding her right lower extremity, I have reviewed all films and it does not appear that she has any acute fractures and no evidence of DVT. She does have some osteoarthritis in that knee. It is possible that she flared up her osteoarthritis when she fell. I will discuss this at bedside with her today. Job ID: [id number]
[2020-06-20] MEDS: Famotidine 20 MG TAB PO SCH ×2 (08:12→21:50)
[2020-06-20] MEDS ORDERED: Lidocaine 1% PF 5 ML VIAL ONE (09:52)
[2020-06-20] MEDS ORDERED: PROPOFOL 200 MG/20 ML VIAL ONE (09:52)
[2020-06-20] MEDS ORDERED: Bupivacaine HCl 0.5%/Epinephrine 1:200,000/PF 30 ml Vial ONE (09:52)
[2020-06-20] MEDS ORDERED: Ondansetron PF 4 MG/2 ML Vial ONE (09:52)
[2020-06-20] MEDS: Pregabalin 50 MG CAP PO SCH ×3 (10:45→21:50)
[2020-06-20 11:42] LABS: SARS-CoV-2 MS2 Positive; SARS-CoV-2 N Gene Negative; SARS-CoV-2 S Gene Negative; SARS-CoV-2 by NAA Not Detected (NotDetected); SARS-CoV-2 orf1ab Negative
--- NOTE | 2020-06-20 12:14 | MRI ---
MRI LUMBAR SPINE NONCONTRAST: HISTORY: Right leg pain. Patient stepped in a hole and fell. Fracture. COMPARISON: 03/11/2017. FINDINGS: Appropriate T1 marrow signal intensity of the lumbar vertebrae. Lumbar spine vertebral body height is maintained. No fracture. No significant STIR hyperintensity to suggest ligamentous injury or vertebral body edema. Appropriate signal intensity of the visualized paraspinal muscles and solid organs. Conus medullaris terminates at the mid L1 level. T12-L1:Adequate disc hydration. No posterior disc abnormality. No significant central canal stenosis or significant neural foraminal narrowing. L1-L2:Minimal disc desiccation without significant loss of disc space height. Left and right paracent ral disc bulges. Mild central canal stenosis. Patent bilateral neural foramina. L2-L3:Minimal disc desiccation without significant loss of disc space height. Broad-based disc bulge, ligament flavum thickening and facet hypertrophy result in mild to moderate central canal stenosis. The degree of central canal stenosis has slightly progressed. Disc material abuts but does not obscure either traversing L3 nerve root. Mild bilateral neural foraminal narrowing. L3-L4:Minimal disc desiccation without significant loss of disc space height. Broad-based disc bulge, ligament flavum thickening and facet hypertrophy result in moderate to severe central canal stenosis. The degree of facet hypertrophy is similar to the previous examination. Mild bilateral neur al foraminal narrowing. 2.2 mm of anterolisthesis of L3 upon L4. L4-L5:Minimal disc desiccation without significant loss of disc space height. Broad-based disc bulge, ligament flavum thickening and facet hypertrophy result in mild to moderate central canal stenosis. Essentially stable narrowing of both subarticular zones with mass effect upon bilateral tra versing L5 nerve roots. There is partial obscuration. Mild to moderate right and moderate left neural foraminal narrowing. L5-S1:Adequate disc hydration. Broad-based disc bulge, mild ligament flavum thickening and facet hype rtrophy. Mild central canal stenosis. Patent bilateral neural foramina. IMPRESSION: Essentially stable multilevel degenerative changes of the lumbar spine. Transcribed Date/Time: 06/20/2020 12:29 PM
[2020-06-20] MEDS ORDERED: Fentanyl 100 MCG/2 ML VIAL ONE ×2 (12:37)
--- NOTE | 2020-06-20 15:09 | RAD ---
EXAM: 3 views of the right wrist HISTORY: Distal radius fracture COMPARISON: 06/19/2020 FINDINGS: 3 limited intraoperative fluoroscopic views of the right wrist shows the patient is status post ORIF of the distal radius fracture with a plate and screws. An ulnar styloid process fracture is also seen. No perihardware lucency is seen. IMPRESSION: Status post-ORIF of distal radius fracture
[2020-06-20] MEDS ORDERED: Promethazine HCl 25 MG/ML VIAL SLOW IVP PRN (15:26)
[2020-06-20] MEDS ORDERED: Ondansetron HCl/PF 4 MG/2 ML Vial IVP PRN (15:26)
[2020-06-20] MEDS ORDERED: Promethazine HCl 25 MG/ML VIAL IM PRN (15:26)
[2020-06-20] MEDS: CEFAZOLIN 2 GM in Premix Bag 1 BAG IVPB SCH (22:00)
[2020-06-21] MEDS: Acetaminophen 325 MG TAB PO SCH ×4 (00:04→16:09)
[2020-06-21] MEDS: Morphine 2 MG/ML VIAL SLOW IVP PRN ×4 (00:06→09:56)
--- NOTE | 2020-06-21 00:08 | OP ---
DATE OF PROCEDURE: 06/20/2020 POSTOPERATIVE DIAGNOSIS: Comminuted intraarticular distal radius fracture, right. POSTOPERATIVE DIAGNOSIS: Comminuted intraarticular distal radius fracture, right. PROCEDURE PERFORMED: Open reduction internal fixation of right distal radius. ANESTHESIA: General. SALESFORCE BUSINESS ANALYST: Ria Bernal PA-C. TOURNIQUET TIME: 67 minutes at 250 mmHg. IMPLANTS: Synthes 2.4 mm variable angle LCP two-column volar distal radius plate. COMPLICATIONS: None. DRAINS: None. SPECIMEN: None. OUTCOME: Satisfactory. INDICATIONS FOR PROCEDURE: Patient is a 75-year-old lady, who is now status post ground level fall landing on outstretched right hand sustaining a severely comminuted and displaced distal radius fracture. Given the shortening with loss of radial inclination, and overall disruption of the bone of the distal radius, I have recommended we proceed with surgical stabilization in hopes of speeding healing as well as providing improved functional recovery. Informed consent has been obtained. I believe all questions have been answered. DESCRIPTION OF PROCEDURE: Patient was brought to the operating room and a time-out performed followed by induction of general anesthesia. Next, patient was positioned supine on the OR table and a sterile prep and drape performed of the right upper extremity. Next, the limb was exsanguinated with Esmarch bandage, tourniquet inflated to 250 mmHg. At this time, a volar radial skin incision was made in line with the flexor carpi radialis. After skin was sharply incised, dissection was carried down to the radial border of the flexor carpi radialis and then blunt dissection was used to pass the flexor digitorum to the midline revealing the underlying pronator quadratus. This was released off the radial border of the distal radius and reflected to the midline revealing a severely comminuted distal metaphyseal fracture with intraarticular extension with a severely comminuted radial styloid associated with this. Given this comminution, it was felt that basically spanning the fracture site with a plate would help to bring the radius out to length and provide some baptist of normal volar tilt. As such, the fracture was provisionally reduced under direct visualization and held in place with a K-wire followed by application of a volar plate. This was held in place with a cortical screw proximal to the fracture and then the fracture pieces reduced to the plate as best possible. Once reduced to the plate, three locking screws were passed from the distal limb of the plate up into the subchondral bone region. This resulted in baptist of radial length with reasonably restored volar tilt. The radial styloid was still felt to be grossly unstable and this really could not be captured with the locking screw. As such, a small stab wound was made over the radial border of the radial styloid and a 2.7 mm screw was then passed obliquely across the radial styloid capturing the more proximal cortex of the distal radius. Next, two additional cortical screws were placed in the longitudinal limb of the plate. At the completion of this, there was baptist of radial inclination, volar tilt, and length. The wound was then irrigated with bulb syringe, then closed in layers. It should be noted that given the swelling within the wrist, my assistant principal provided retraction to protect the median nerve as well as radial artery while I was applying the hardware and also provided traction on the forearm while the distal screws were applied to help achieve more anatomic alignment. At the completion of hardware placement, and following the irrigation with bulb syringe, a layered closure was performed with 2-0 Vicryl followed by nylon. Xeroform gauze, Webril, and fiberglass splint were applied to the arm and then the tourniquet was let down and patient was transferred to recovery room in stable condition. There were no complications and patient tolerated the procedure well. Job ID: [id number]
[2020-06-21] MEDS: CEFAZOLIN 2 GM in Premix Bag 1 BAG IVPB SCH ×2 (05:35→15:50)
[2020-06-21 05:47] LABS: #Eosinphils 0.1 thou/uL (0.0-0.7); #Monocytes 1.1 thou/uL (0.11-0.59); #Neutrophils 10.7 thou/uL (1.40-6.50); %Basophils 0.1 % (0.0-1.0); %Eosinophils 0.5 % (0.0-10.0); %Lymphocytes 7.9 % (21.0-51.0); %Monocytes 8.4 % (0.0-10.0); %Neutrophils 83.1 % (42.0-75.0); Hemoglobin 11.2 g/dL (12.0-16.0); Mean Corpuscular HGB CONC 32.4 g/dL (32.0-36.0); Mean Corpuscular Hemoglobin 29.4 pg (27.0-31.0); Mean Corpuscular Volume 90.9 fL (78.0-98.0); Mean Platelet Volume 8.6 fL (7.4-10.4); Platelet Count 228 thou/uL (130-400); RBC Distribution Width 17.2 % (11.5-14.5); Red Blood Cell (RBC) Count 3.81 mill/uL (4.20-5.40); White Blood Cell (WBC) Count 12.9 thou/uL (4.8-10.8)
[2020-06-21] MEDS: Famotidine 20 MG TAB PO SCH ×2 (07:43→22:10)
[2020-06-21] MEDS: Pregabalin 50 MG CAP PO SCH ×3 (07:43→22:09)
[2020-06-21] MEDS: Apixaban 5 MG TAB PO SCH ×2 (09:55→22:10)
[2020-06-21] MEDS ORDERED: Acetaminophen 325 MG TAB PO SCH (10:27)
[2020-06-21] MEDS: Ketorolac Tromethamine 30 MG/ML VIAL IVP SCH ×2 (11:50→17:48)
[2020-06-21] MEDS: traMADol HCl 50 MG TAB PO SCH ×2 (11:52→17:48)
[2020-06-21] MEDS ORDERED: Furosemide 40 MG TAB PO PRN (14:31)
--- NOTE | 2020-06-21 14:54 | PRG ---
DATE OF SERVICE: 06/21/2020 SUBJECTIVE: The patient is currently on the Medicine floor. She was placed there as overflow from the surgical floor. She is hospital day 3, status post ground-level fall, in which she sustained a right distal radius and ulna fracture, in which she underwent open reduction and internal fixation of same. She tolerated that procedure well. Postoperatively, she was continuing to have some right lower extremity radicular pain and yesterday she underwent MRI of her lumbar spine, which showed a mildly increasing disk bulge that was chronic in nature. This was discussed with Neurosurgery who recommended Lyrica, consider a Medrol dose pack, and follow up with primary care pain management to attempt to maximize conservative treatment, and then if needed or condition worsened, neurosurgical consultation could be obtained. Otherwise, the patient is doing well. She has not worked with Physical or Occupational Therapy yet, but that was planned for this morning. The patient is tolerating a diet. Her pain is controlled with the exception of her radiculopathy. The patient has also had her home medications resumed. PHYSICAL EXAMINATION: VITAL SIGNS: Temperature 98.5, heart rate 97, blood pressure 148/82, respirations 18, oxygen saturation 92% on room air. GENERAL: The patient is resting comfortably in bed. She is awake, alert, conversant, and appropriate. Vanessa Coma Scale is 15. HEENT: Unremarkable. RESPIRATIONS: Nonlabored. Clear to auscultation bilaterally. HEART: Regular rate and rhythm. ABDOMEN: Soft, flat, and nontender with active bowel sounds. EXTREMITIES: Neurovascularly intact x4. Right upper extremity is placed in a clean, dry, and intact splint. LABORATORY FINDINGS: White blood cell count 12.9, hemoglobin 11.2, hematocrit 34.6, platelets 228. Sodium 134, potassium 3.8, chloride 102, CO2 of 24, BUN 9, creatinine 0.61, glucose 114. There are no radiographs to review this morning. ASSESSMENT: 1. Status post ground-level fall. 2. Status post open reduction and internal fixation of comminuted intra-articular distal radius fracture on the right. 3. Right-sided lumbar radiculopathy. 4. History of hypertension, hyperlipidemia, atrial fibrillation, and diabetes. PLAN: Plan will be to encourage physical and occupational therapy. Eliquis will be started as her home medicine involved to be used as VTE prophylaxis. We will await placement decision. We will re-evaluate the patient tomorrow as we have started her Lyrica for her radiculopathy. The patient was evaluated this morning with Dr. Parker during rounds. Job ID: [id number]
[2020-06-21] MEDS ORDERED: CEFAZOLIN 2 GM in Premix Bag 1 BAG IVPB SCH (15:00)
[2020-06-21] MEDS: Dronedarone HCl 400 MG TAB PO SCH (16:09)
[2020-06-21] MEDS: Metoprolol Tartrate 25 MG TAB PO SCH (22:09)
[2020-06-21] MEDS: Calcium Carbonate 600 MG + Vit D TAB PO SCH (22:10)
[2020-06-22] MEDS: Acetaminophen 325 MG TAB PO SCH ×5 (00:05→22:12)
[2020-06-22] MEDS: Ketorolac Tromethamine 30 MG/ML VIAL IVP SCH ×3 (01:46→12:46)
[2020-06-22] MEDS: traMADol HCl 50 MG TAB PO SCH ×4 (01:47→17:46)
[2020-06-22 05:53] LABS: #Eosinphils 0.2 thou/uL (0.0-0.7); #Monocytes 0.9 thou/uL (0.11-0.59); #Neutrophils 7.6 thou/uL (1.40-6.50); %Basophils 0.3 % (0.0-1.0); %Eosinophils 1.9 % (0.0-10.0); %Lymphocytes 18.4 % (21.0-51.0); %Monocytes 8.6 % (0.0-10.0); %Neutrophils 70.8 % (42.0-75.0); Hemoglobin 10.1 g/dL (12.0-16.0); Mean Corpuscular HGB CONC 32.5 g/dL (32.0-36.0); Mean Corpuscular Hemoglobin 29.6 pg (27.0-31.0); Mean Corpuscular Volume 90.9 fL (78.0-98.0); Mean Platelet Volume 8.2 fL (7.4-10.4); Platelet Count 220 thou/uL (130-400); RBC Distribution Width 17.2 % (11.5-14.5); Red Blood Cell (RBC) Count 3.42 mill/uL (4.20-5.40); White Blood Cell (WBC) Count 10.8 thou/uL (4.8-10.8)
[2020-06-22] MEDS: Levothyroxine Sodium 125 MCG TAB PO SCH (06:19)
--- NOTE | 2020-06-22 07:22 | PRG ---
DATE OF SERVICE: 06/20/2020 SUBJECTIVE: The patient is resting comfortably in bed. This is a 75-year-old female with a comminuted intra-articular distal radius and ulnar styloid fracture after falling. She is resting comfortably in bed. States that she is having some moderate pain in her right arm and also reports pain in her left leg. Per mom and patient, the patient has chronic pain in the right leg and knee. However, it has worsened since her fall. The patient is aware of plans to go to the operating room later today with Dr. Finney. The patient denies nausea or vomiting. OBJECTIVE: VITAL SIGNS: Temperature 98.5, pulse 79 beats per minute, respiratory rate 20, O2 sats 94% on room air, blood pressure 152/82. GENERAL: The patient is resting comfortably in bed. Awake, alert, conversant, and appropriate. Primary language is Tunisian, but she speaks and understands Portuguese very well. Parchman coma scale 15. HEENT: Head is normocephalic, atraumatic. EOMI. PERRLA bilaterally. NECK: Trachea is midline. CHEST: Clear to auscultation. Good inspiratory and expiratory effort. HEART: Regular rate and rhythm. ABDOMEN: Soft, flat, nontender. Pelvis is stable. EXTREMITIES: Pain in the right posterior knee. No pain in the calf. Neurovascular status in all four extremities is intact. BACK: Atraumatic and nontender. LABORATORY FINDINGS: White count 11.4, hemoglobin 11.3, hematocrit 35.9, platelets 247. Glucose 99, sodium 134. Venogram shows no evidence of deep vein thrombosis with either lower extremity. ASSESSMENT: 1. Status post ground level fall. 2. Comminuted displaced distal radius and fracture. 3. Ulnar styloid fracture. 4. Right lower extremity pain without evidence of fracture. 5. Acute pain secondary to trauma. 6. History of hypertension, hyperlipidemia, atrial fibrillation, and diabetes. PLAN: 1. The patient will go back to the OR with Dr. Finney this afternoon for repair of her radius fracture. 2. We will continue to monitor pain control. 3. We will order a lumbar spine MRI to determine cause of right leg pain likely secondary to osteoarthritis. 4. We will add on Lyrica 50 mg t.i.d. to assist in pain management. 5. Trauma bowel regimen. 6. PT, OT. 7. Encourage ambulation with assistance. 8. The patient was seen and evaluated by Dr. Parker during morning rounds. Discussed plan of care with patient and family who are in agreement. Job ID: [id number] MTDD
--- NOTE | 2020-06-22 07:56 | PRG ---
DATE OF SERVICE: 06/21/2020 SUBJECTIVE: This patient was seen on morning rounds. The patient is status post ORIF of the right distal radius operation last night. The patient is comfortable and states she is still having some moderate pain in her right leg, but the lyrica has improved the pain. Lumbar spine MRI showed essentially stable multilevel degenerative changes of the lumbar spine The patient denies nausea or vomiting. The patient states that she has not walked yet. OBJECTIVE: VITAL SIGNS: Temperature 98.5, pulse 97, blood pressure 148/82, respiratory rate 18, O2 sats 92% on room air. GENERAL: The patient is resting comfortably in bed. Awake, alert, and conversant. Appropriate. Primary language is Bahraini, but she speaks and understands Georgian very well. HEENT: Head is normocephalic and atraumatic. PERRLA bilaterally. NECK: Trachea is midline. CHEST: Clear to auscultation with good inspiratory and expiratory effort. HEART: Regular rate and rhythm. ABDOMEN: Soft, flat, nontender with hypoactive bowel sounds. Pelvis is stable. EXTREMITIES: Neurovascularly intact. Right upper extremity is wrapped. The patient has pain to the right popliteal region. No gross deformity. Calf unremarkable. Neurovascular status in all four extremities intact. BACK: Atraumatic and nontender. LABORATORY FINDINGS: White count 12.9, hemoglobin and hematocrit 11.2/34.6, platelets 228. Sugar 120, sodium 134, potassium 3.8, chloride 102, carbon dioxide 24, creatinine 0.61. ASSESSMENT AND PLAN: 1. Status post ground fall. 2. Comminuted displaced distal radius fracture, s/p ORIF last night. 3. Ulnar styloid fracture. 4. Right lower extremity pain without evidence of fracture, likely 2/2 osteoarthritis 5. Acute pain secondary to trauma. 6. History of hypertension, hyperlipidemia, atrial fibrillation, diabetes. PLAN: 1. Status post ORIF last night, Ortho recommendations. We will continue to follow. 2. Lumbar spine MRI showed essentially stable multilevel degenerative changes of the lumbar spine. For this continued R leg pain, we will adjust her pain regimen. Stop her morphine, add on Toradol and stop Motrin, continue lyrica as it is helping. 3. Encourage walking and working with PT/OT. 4. We will begin arranging for placement with Case Management on board. 5. Bowel regimen. 6. The patient was seen and evaluated by Dr. Parker during morning rounds. Discussed plan of care with the patient and family, who are in agreement. Job ID: [id number] MTDD
[2020-06-22] MEDS: Dronedarone HCl 400 MG TAB PO SCH ×2 (09:00→17:46)
[2020-06-22] MEDS: Famotidine 20 MG TAB PO SCH ×2 (09:01→22:12)
[2020-06-22] MEDS: Ascorbic Acid 500 mg Chewable Tablet PO SCH (09:01)
[2020-06-22] MEDS: Anastrozole 1 MG TAB PO SCH (09:01)
[2020-06-22] MEDS: Apixaban 5 MG TAB PO SCH ×2 (09:02→22:13)
[2020-06-22] MEDS: Atorvastatin Calcium 20 MG TAB PO SCH (09:02)
[2020-06-22] MEDS: Calcium Carbonate 600 MG + Vit D TAB PO SCH ×2 (09:02→22:12)
[2020-06-22] MEDS: Pregabalin 50 MG CAP PO SCH ×2 (09:02→22:13)
[2020-06-22] MEDS: Metoprolol Tartrate 25 MG TAB PO SCH (09:03)
[2020-06-22 11:32] LABS: Anion Gap 10 mmol/L (10-20); BUN (Urea Nitrogen) 30 mg/dL (9.8-20.1); Calc. Creatinine Clearance 53 mL/min (70-130); Calcium 8.6 mg/dL (7.8-10.44); Carbon Dioxide 29 mmol/L (23-31); Chloride 95 mmol/L (98-107); Estimated GFR-MDRD 45; Glucose 104 mg/dL (83-110); Magnesium 1.9 mg/dL (1.6-2.6); Phosphorus 3.9 mg/dL (2.3-4.7); Potassium 4.1 mmol/L (3.5-5.1); Sodium 130 mmol/L (136-145)
--- NOTE | 2020-06-22 12:08 | PQF ---
CLINICAL DOCUMENTATION CLARIFICATION FORM: Dear Dr. Rapp Date / Time: 06/22/20 1200 Please exercise your independent, professional judgment in responding to the clarification form. Clinical indicators are provided on the bottom of this form for your review. Please check appropriate box(es): [ x ] Hyponatremia please specify etiology, if known - possibly 2/2 dehydration [ ] Hyponatremia due to SIADH (Syndrome of Inappropriate Secretion of Antidiuretic Hormone) [ ] Other diagnosis [ ] Unable to determine In addition, please specify: Present on Admission (POA): [ x ] Yes [ X] No [ ] Unable to determine For continuity of documentation, please document condition throughout progress notes and discharge summary. Thank You. To be completed by CDI/Coding staff for physician review: CLINICAL INDICATORS - SIGNS / SYMPTOMS / LABS / RESULTS AND LOCATION IN EMR (06/20) SODIUM 134 (06/22) SODIUM 130 RISK FACTORS / RESULTS AND LOCATION IN EMR s/p fall with recent surgery ( op-note /[facility]) 06/21 TREATMENTS / RESULTS AND LOCATION IN EMR IV FLUIDS (06/20) SERIAL LABS ( 06/19, 06/20, 06/22) Thank you! CDS Signature: Amarilys Curry RN Phone #: [phone] Date: 06/22/20 0665 This is a part of the Medical Record MTDD
[2020-06-22] MEDS ORDERED: Sodium Chloride 0.9% 1,000 ML IV SCH (12:15)
[2020-06-22] MEDS ORDERED: Metoprolol Tartrate 25 MG TAB PO SCH (21:30)
--- NOTE | 2020-06-22 23:45 | PRG ---
DATE OF SERVICE: 06/22/2020 SUBJECTIVE: The patient was seen during evening rounds, sleeping, in no distress. The patient vital signs are stable, although the patient's blood pressure is soft at 100/66. The patient was given a liter of normal saline earlier today for an acute kidney injury. PLAN: Continue supportive care and pain regimen. Continue physical and occupational therapy. Continue to monitor urinary output and blood pressure. Encourage increased oral intake. We will repeat labs in the morning. We will also get a cortisol level as the patient's blood pressure has been soft. The patient is pending placement to [facility]. Job ID: [id number]
[2020-06-23] MEDS: traMADol HCl 50 MG TAB PO SCH ×4 (01:27→17:56)
[2020-06-23] MEDS: Acetaminophen 325 MG TAB PO SCH ×3 (05:09→16:39)
[2020-06-23] MEDS: Levothyroxine Sodium 125 MCG TAB PO SCH (05:10)
[2020-06-23 06:11] LABS: #Eosinphils 0.3 thou/uL (0.0-0.7); #Lymphocytes 1.8 thou/uL (1.20-3.40); #Monocytes 0.9 thou/uL (0.11-0.59); #Neutrophils 7.6 thou/uL (1.40-6.50); %Basophils 0.3 % (0.0-1.0); %Eosinophils 3.2 % (0.0-10.0); %Lymphocytes 16.8 % (21.0-51.0); %Monocytes 8.4 % (0.0-10.0); %Neutrophils 71.3 % (42.0-75.0); Hemoglobin 10.3 g/dL (12.0-16.0); Mean Corpuscular HGB CONC 31.5 g/dL (32.0-36.0); Mean Corpuscular Hemoglobin 29.3 pg (27.0-31.0); Mean Corpuscular Volume 92.9 fL (78.0-98.0); Mean Platelet Volume 8.6 fL (7.4-10.4); Platelet Count 236 thou/uL (130-400); Red Blood Cell (RBC) Count 3.52 mill/uL (4.20-5.40); White Blood Cell (WBC) Count 10.7 thou/uL (4.8-10.8)
[2020-06-23 06:31] LABS: Anion Gap 14 mmol/L (10-20); BUN (Urea Nitrogen) 27 mg/dL (9.8-20.1); Calc. Creatinine Clearance 82 mL/min (70-130); Calcium 8.8 mg/dL (7.8-10.44); Carbon Dioxide 24 mmol/L (23-31); Chloride 98 mmol/L (98-107); Estimated GFR-MDRD 73; Glucose 98 mg/dL (83-110); Magnesium 1.9 mg/dL (1.6-2.6); Phosphorus 3.1 mg/dL (2.3-4.7); Potassium 4.4 mmol/L (3.5-5.1); Sodium 132 mmol/L (136-145)
--- NOTE | 2020-06-23 06:33 | PRG ---
DATE OF SERVICE: 06/22/2020 SUBJECTIVE: This patient was seen on morning rounds. The patient is status post ORIF of the right distal radius on 06/20. The patient is comfortable and notes that she has had improvement in the pain of her right leg with Lyrica. However, the daughter at bedside notes the patient is having some hallucinations. No nausea or vomiting. The patient states she has not walked yet. OBJECTIVE: VITAL SIGNS: Temperature 98.3, pulse 74 beats per minute, respiratory status 15, O2 sats 95 on room air, and blood pressure 93/57. GENERAL: The patient is resting comfortably in bed. Awake, alert, conversant, and appropriate. HEENT: Head is normocephalic and atraumatic. PERRLA bilaterally. Dry mucous membranes. NECK: Trachea is midline. CHEST: Clear to auscultation with good inspiratory and expiratory effect. HEART: Regular rate and rhythm. ABDOMEN: Soft, flat, nontender with hypoactive bowel sounds. PELVIS: Stable. EXTREMITIES: Neurovascularly intact. Right upper extremity is wrapped. No gross deformity. Neurovascular status in all four extremities intact. BACK: Atraumatic and nontender. LABORATORY FINDINGS: Sodium 130, potassium 4.1, chloride 95, carbon dioxide 29, BUN 30, creatinine 1.18. ASSESSMENT: 1. Status post ground fall. 2. Comminuted displaced distal radial fracture, status post open reduction and internal fixation. 3. Ulnar styloid fracture. 4. Right lower extremity pain without evidence of fracture, likely secondary to osteoarthritis. 5. Acute pain secondary to trauma. 6. Acute kidney injury. 7. Hyponatremia, likely 2/2 dehydration. 8. History of hypertension, hyperlipidemia, atrial fibrillation, and diabetes. PLAN: 1. Continue with the current pain regimen. However, we will change Lyrica to b.i.d. due to hallucinations. 2. Encourage walking and working with PT/OT this morning. 3. Started normal saline 1 L of normal saline for dehydration, likely causing acute kidney injury and hyponatremia. 4. Continue bowel regimen. 5. We are awaiting placement by Case Management. 6. The patient was seen and evaluated by Dr. Parker during morning rounds. Discussed plan of care with the patient and family, who are in agreement. Job ID: [id number]
[2020-06-23] MEDS: Atorvastatin Calcium 20 MG TAB PO SCH (07:48)
[2020-06-23] MEDS: Pregabalin 50 MG CAP PO SCH ×2 (07:48→20:40)
[2020-06-23] MEDS: Dronedarone HCl 400 MG TAB PO SCH ×2 (07:48→16:39)
[2020-06-23] MEDS: Calcium Carbonate 600 MG + Vit D TAB PO SCH ×2 (07:48→20:40)
[2020-06-23] MEDS: Anastrozole 1 MG TAB PO SCH (07:48)
[2020-06-23] MEDS: Ascorbic Acid 500 mg Chewable Tablet PO SCH (07:49)
[2020-06-23] MEDS: Metoprolol Tartrate 25 MG TAB PO SCH ×2 (07:49→20:41)
[2020-06-23] MEDS: Famotidine 20 MG TAB PO SCH ×2 (07:49→20:40)
[2020-06-23] MEDS: Apixaban 5 MG TAB PO SCH ×2 (07:49→20:41)
[2020-06-23 14:22] LABS: Bacteria/HPF None Seen HPF (None Seen); RBC/HPF 0-3 HPF (0-3); Squamous Epithelial 0-3 HPF (0-3); WBC/HPF 0-3 HPF (0-3)
[2020-06-23] MEDS: Senokot S 8.6-50 MG TAB PO SCH (20:40)
--- NOTE | 2020-06-23 20:49 | PRG ---
DATE OF SERVICE: 06/23/2020 This is Jolly Smith PA-C dictating a report for Cristian Parker DO. SUBJECTIVE: The patient was seen this morning during rounds. She was lying in bed with no signs of acute distress. She reported her pain is well controlled. She is tolerating a diet. She worked with Physical therapy yesterday and stood up at the edge of the bed, which is an improvement. Plan is to get her up into a chair. OBJECTIVE: VITAL SIGNS: Temperature 97.7, pulse 62, respirations 18, oxygen saturation 98% on room air, blood pressure 105/58. GENERAL: Well-appearing elderly female, lying in bed with no signs of acute distress. PULMONARY: Equal chest rise and fall. Clear breath sounds bilaterally. No signs of acute respiratory distress. CARDIAC: Regular rate and rhythm. GI: Abdomen is soft, nontender, nondistended. EXTREMITIES: 2+ pulses in all extremities. No significant swelling noted. NEUROLOGIC: GCS is 14. This is her baseline. PLAN: Continue current diet and pain regimen. Continue physical and occupational therapy. The patient to get up out of bed and sit into a chair. Nursing report mild increase in confusion, sent UA and urine culture. The patient is ready for discharge at this time. She is pending insurance authorization for [facility]. This patient was discussed with Dr. Parker before this dictation. Job ID: [id number]
[2020-06-24] MEDS: traMADol HCl 50 MG TAB PO SCH ×4 (00:10→16:59)
[2020-06-24] MEDS: Acetaminophen 325 MG TAB PO SCH ×5 (00:10→23:03)
--- NOTE | 2020-06-24 03:03 | PRG ---
DATE OF SERVICE: 06/24/2020 SUBJECTIVE: The patient remains on the medicine floor. She was there as there were no beds on the surgical floor. She was admitted status post ground level fall which she sustained a comminuted intra-articular distal radius fracture which she has undergone orthopedic surgery for. She has been waiting insurance approval for inpatient rehab. She has been working with Physical and Occupational Therapy. She is tolerating a diet. Her pain is controlled and the nurses report no issues. OBJECTIVE: At the time of my visit, vital signs were stable, she was afebrile, she was sleeping, and I did not awaken her for an examination. PLAN: Plan will be to continue supportive care and await placement. Job ID: [id number]
[2020-06-24] MEDS: Levothyroxine Sodium 125 MCG TAB PO SCH (06:17)
[2020-06-24] MEDS: Famotidine 20 MG TAB PO SCH ×2 (08:34→21:53)
[2020-06-24] MEDS: Senokot S 8.6-50 MG TAB PO SCH ×2 (08:34→21:53)
[2020-06-24] MEDS: Metoprolol Tartrate 25 MG TAB PO SCH ×2 (08:35→21:52)
[2020-06-24] MEDS: Pregabalin 50 MG CAP PO SCH ×2 (08:35→21:51)
[2020-06-24] MEDS: Dronedarone HCl 400 MG TAB PO SCH ×2 (08:35→16:58)
[2020-06-24] MEDS: Polyethylene Glycol 3350 17 GM Packet PO SCH (08:35)
[2020-06-24] MEDS: Anastrozole 1 MG TAB PO SCH (08:36)
[2020-06-24] MEDS: Ascorbic Acid 500 mg Chewable Tablet PO SCH (08:36)
[2020-06-24] MEDS: Apixaban 5 MG TAB PO SCH ×2 (08:36→21:52)
[2020-06-24] MEDS: Atorvastatin Calcium 20 MG TAB PO SCH (08:36)
[2020-06-24] MEDS: Calcium Carbonate 600 MG + Vit D TAB PO SCH ×2 (08:36→21:52)
[2020-06-24] MEDS ORDERED: Cipro 250 MG TAB PO SCH (09:30)
--- NOTE | 2020-06-24 16:18 | PRG ---
DATE OF SERVICE: 06/24/2020 SUBJECTIVE: The patient was seen this morning during rounds. She was lying in bed asleep, but easily arousable. She had no signs of acute distress. Daughter at the bedside reported the patient was a little bit more confused today than yesterday. The patient previously sat up on a bedside commode, but has not been out of bed yet. We will encourage that today. OBJECTIVE: VITAL SIGNS: Temperature 97.7, pulse 62, respirations 18, oxygen saturation 100% on room air, and blood pressure 136/52. GENERAL: Well-appearing elderly female, lying in bed, with no signs of acute distress. PULMONARY: Equal chest rise and fall. Clear breath sounds bilaterally. No signs of acute respiratory distress. CARDIAC: Regular rate and rhythm. GI: Abdomen is soft, nontender, and nondistended. EXTREMITIES: 2+ pulses in all extremities. Gross motor and sensation intact. No significant swelling noted. Right upper extremity with splint, that is clear, dry, and intact. NEUROLOGIC: GCS is 14 to 15. The patient has delirium with waxing and waning confusion. LABORATORY FINDINGS: There are no new laboratory findings to discuss. DIAGNOSTIC FINDINGS: There are no new diagnostic findings to discuss. ASSESSMENT: 1. Status post ground-level fall, on Eliquis. 2. Right distal radius fracture. 3. Acute kidney injury, resolved. 4. Urinary tract infection, uncomplicated. 5. History of atrial fibrillation. 6. Breast cancer. 7. Hypothyroidism. 8. Diabetes. PLAN: Continue current diet and pain regimen. Continue physical and occupational therapy. The patient to be up and out of bed and into the chair daily. Start Cipro for 3 days for UTI. Follow up sensitivity results. The patient is pending discharge to acute rehab facility. She is pending insurance authorization. She is ready for discharge at this time. Job ID: [id number]
[2020-06-24] MEDS: Cipro 250 MG TAB PO SCH (20:31)
[2020-06-25 05:38] LABS: #Eosinphils 0.2 thou/uL (0.0-0.7); #Lymphocytes 1.9 thou/uL (1.20-3.40); #Monocytes 0.9 thou/uL (0.11-0.59); #Neutrophils 4.9 thou/uL (1.40-6.50); %Basophils 0.4 % (0.0-1.0); %Eosinophils 2.9 % (0.0-10.0); %Lymphocytes 23.7 % (21.0-51.0); %Monocytes 11.7 % (0.0-10.0); %Neutrophils 61.4 % (42.0-75.0); Hemoglobin 10.8 g/dL (12.0-16.0); Mean Corpuscular HGB CONC 32.5 g/dL (32.0-36.0); Mean Corpuscular Hemoglobin 30.1 pg (27.0-31.0); Mean Corpuscular Volume 92.4 fL (78.0-98.0); Mean Platelet Volume 7.8 fL (7.4-10.4); Platelet Count 240 thou/uL (130-400); RBC Distribution Width 16.7 % (11.5-14.5); White Blood Cell (WBC) Count 7.9 thou/uL (4.8-10.8)
[2020-06-25] MEDS: Acetaminophen 325 MG TAB PO SCH ×4 (05:51→23:33)
[2020-06-25] MEDS: Levothyroxine Sodium 125 MCG TAB PO SCH (05:51)
[2020-06-25] MEDS: Cipro 250 MG TAB PO SCH ×2 (05:51→20:18)
[2020-06-25] MEDS: traMADol HCl 50 MG TAB PO SCH ×3 (05:56→12:56)
[2020-06-25 06:12] LABS: Anion Gap 14 mmol/L (10-20); BUN (Urea Nitrogen) 11 mg/dL (9.8-20.1); Calc. Creatinine Clearance 100 mL/min (70-130); Carbon Dioxide 26 mmol/L (23-31); Chloride 99 mmol/L (98-107); Estimated GFR-MDRD Greater than 90; Glucose 81 mg/dL (83-110); Magnesium 1.8 mg/dL (1.6-2.6); Phosphorus 3.4 mg/dL (2.3-4.7); Potassium 4.4 mmol/L (3.5-5.1); Sodium 135 mmol/L (136-145)
--- NOTE | 2020-06-25 06:18 | PRG ---
DATE OF SERVICE: 06/25/2020 The patient was moved to the surgical floor today from the medicine floor. She was admitted status post ground level fall which she sustained a distal radius fracture, which she underwent ORIF for. There was concern today by the daughter that the patient has been having some confusion this is likely due to her change of environment and her lack of mobility. Her mobility was one of the reasons that it was felt that she would be better on the surgical floor where the physical therapist will work more aggressively with her to help her rehabilitate. The patient is tolerating her diet. Her pain is controlled. She was started on antibiotics for urinary tract infection today. She does not appear to have urosepsis. Her vital signs are stable. She is afebrile. PLAN: Plan will be to continue supportive care and await placement decision. Job ID: [id number]
[2020-06-25] MEDS ORDERED: Magnesium 2 GM/50 ML 2 GM in Premix Bag 1 BAG IVPB SCH (06:30)
[2020-06-25] MEDS: Polyethylene Glycol 3350 17 GM Packet PO SCH (08:43)
[2020-06-25] MEDS: Senokot S 8.6-50 MG TAB PO SCH ×2 (08:44→21:16)
[2020-06-25] MEDS: Apixaban 5 MG TAB PO SCH ×2 (08:44→21:17)
[2020-06-25] MEDS: Ascorbic Acid 500 mg Chewable Tablet PO SCH (08:44)
[2020-06-25] MEDS ORDERED: PHOS-NAK 1 PKT PACK PO SCH (08:45)
[2020-06-25] MEDS: Calcium Carbonate 600 MG + Vit D TAB PO SCH ×2 (08:45→21:17)
[2020-06-25] MEDS: Famotidine 20 MG TAB PO SCH ×2 (08:45→21:15)
[2020-06-25] MEDS: Atorvastatin Calcium 20 MG TAB PO SCH (08:45)
[2020-06-25] MEDS: Pregabalin 50 MG CAP PO SCH ×2 (08:45→21:15)
[2020-06-25] MEDS: Dronedarone HCl 400 MG TAB PO SCH ×2 (08:45→17:50)
[2020-06-25] MEDS: Metoprolol Tartrate 25 MG TAB PO SCH ×2 (08:46→21:17)
[2020-06-25] MEDS: Anastrozole 1 MG TAB PO SCH (12:55)
[2020-06-25] MEDS ORDERED: Acetaminophen/Codeine 30-300mg Tablet PO PRN (14:06)
--- NOTE | 2020-06-25 16:30 | PRG ---
DATE OF SERVICE: 06/25/2020 SUBJECTIVE: The patient was seen this morning during rounds. She was sitting up in bed with no signs of acute distress. Daughter reported the patient was a little bit more confused yesterday and did not sleep well overnight. Reports pain is controlled and she is to get up out of bed and then sit in the chair today. OBJECTIVE: VITAL SIGNS: Temperature 98.1, pulse 61, respirations 16, oxygen saturation 94% on room air, and blood pressure 158/73. GENERAL: Well-appearing elderly female, sitting up in bed, with no signs of acute distress. PULMONARY: Equal chest rise and fall. Clear breath sounds bilaterally. No signs of acute respiratory distress. CARDIAC: Regular rate and rhythm. GI: Abdomen is soft, nontender, and nondistended. EXTREMITIES: 2+ pulses in all extremities. Gross motor and sensation intact. No significant swelling noted. Splint in the right upper extremity clean, dry, and intact. NEUROLOGIC: GCS is 15. LABORATORY FINDINGS: White count 7.9, hemoglobin 10.8, hematocrit 33.3, and platelets 240. Sodium 135, potassium 4.4, chloride 99, bicarb 29, BUN 11, and creatinine 0.63. Phosphorus 3.4. Magnesium 1.8. DIAGNOSTIC FINDINGS: There are no new diagnostic findings to report. ASSESSMENT: 1. Status post ground-level fall, on Eliquis. 2. Right distal radius fracture, status post repair. 3. Acute kidney injury, uncomplicated. 4. Acute hyponatremia, improving. 5. History of atrial fibrillation. 6. Breast cancer. 7. Hypothyroidism. 8. Diabetes. PLAN: Continue current diet and pain regimen. Continue physical and occupational therapy. Continue supportive care. Replace magnesium today. Discontinue tramadol and have p.r.n. Tylenol No. [address] Melatonin scheduled tonight for better sleep. Job ID: [id number]
[2020-06-25] MEDS: Melatonin 3 MG TAB PO SCH (21:16)
[2020-06-25] MEDS: Ibuprofen 200 MG TAB PO PRN (23:43)
[2020-06-26] MEDS: Acetaminophen 325 MG TAB PO SCH ×3 (05:56→16:53)
[2020-06-26] MEDS: Levothyroxine Sodium 125 MCG TAB PO SCH (05:56)
[2020-06-26] MEDS: Cipro 250 MG TAB PO SCH ×2 (06:05→19:28)
[2020-06-26] MEDS: Polyethylene Glycol 3350 17 GM Packet PO SCH (08:52)
[2020-06-26] MEDS: Pregabalin 50 MG CAP PO SCH ×2 (08:53→19:27)
[2020-06-26] MEDS: Dronedarone HCl 400 MG TAB PO SCH ×2 (08:54→16:53)
[2020-06-26] MEDS: Senokot S 8.6-50 MG TAB PO SCH ×2 (08:54→20:32)
[2020-06-26] MEDS: Anastrozole 1 MG TAB PO SCH (08:55)
[2020-06-26] MEDS: Famotidine 20 MG TAB PO SCH ×2 (08:55→19:28)
[2020-06-26] MEDS: Atorvastatin Calcium 20 MG TAB PO SCH (08:55)
[2020-06-26] MEDS: Apixaban 5 MG TAB PO SCH ×2 (08:55→19:28)
[2020-06-26] MEDS: Ascorbic Acid 500 mg Chewable Tablet PO SCH (08:56)
[2020-06-26] MEDS: Calcium Carbonate 600 MG + Vit D TAB PO SCH ×2 (08:57→19:28)
[2020-06-26] MEDS: Metoprolol Tartrate 25 MG TAB PO SCH ×2 (08:58→20:32)
[2020-06-26] MEDS: Ibuprofen 200 MG TAB PO PRN ×2 (11:14→19:32)
[2020-06-26] MEDS: Melatonin 3 MG TAB PO SCH (19:28)
--- NOTE | 2020-06-26 19:30 | DIS ---
DATE OF ADMISSION: 06/19/2020 DATE OF DISCHARGE: 06/26/2020 ADMISSION DIAGNOSES: Ground level fall on Elichantal, right distal radius fracture. DISCHARGE DIAGNOSES: Ground level fall on Eliquis, right distal radius fracture with the addition of acute kidney injury and delirium. CONSULTING PHYSICIANS: Dr. Finney of Orthopedic Surgery. PROCEDURES: The patient went to the OR on June 20, 2020, and had ORIF of the right distal radius. HOSPITAL COURSE: The patient is a 75-year-old female who presented to the emergency department after a ground level fall on Ata. She was found to have a right distal radius fracture and was admitted to the Trauma Service. She went to the OR the day after admission and ORIF of the right distal radius. Postoperatively, the patient had ROBERT and received fluid resuscitation. She was also found to have urinary tract infection, for which she received Cipro. Postoperatively, the patient did have some persistent delirium. At the time of discharge, her pain is well controlled. She was tolerating a diet, and she was working with Physical and Occupational Therapy. DISCHARGE DISPOSITION: Acute rehab. DISCHARGE CONDITION: Satisfactory. PHYSICAL EXAMINATION: VITAL SIGNS: Temperature 97.6, pulse 57, respirations 16, oxygen saturation 97% on room air, and blood pressure 137/74. GENERAL: Well-appearing elderly female, sitting up in bed with no signs of acute distress. PULMONARY: Equal chest rise and fall. No signs of acute respiratory distress. NEUROLOGIC: GCS is 14, -1 for confusion. DISCHARGE INSTRUCTIONS: The patient was discharged to acute rehab facility. Activity as tolerated. Nonweightbearing to left upper extremity. May use a platform walker. Diet is diabetic diet with Glucerna b.i.d. Physical and Occupational therapy, incentive spirometry and a walker. DISCHARGE MEDICATIONS: Include: 1. Tylenol. 2. Tylenol No. 3. 3. Eliquis. 4. Cipro for additional day. 5. Flexeril. 6. Lasix. 7. Lactulose. 8. Melatonin. 9. MiraLAX. 10. Lyrica. 11. Senokot S. FOLLOWUP APPOINTMENTS: The patient is to follow up with Dr. Finney. No followup is needed with Dr. Parker. This is a summary of the patient's hospitalization. Please see medical record for entire medical record details. This patient was seen and evaluated by myself and Dr. Parker on the day of discharge. Job ID: [id number] MTDD
[2020-06-26 20:49] VITALS: BP 116/74; TEMP 98.1
== END 2020-06-26 21:02 | DRG 511 ==
LOC: ERS 16:46 → T4-B 21:32 → OBSVTOIN 21:32 → SURG A 06-24 18:18
PROVIDERS: ADMIT Surgery; ATTEND Surgery
PROC: 0PSH04Z Reposition Right Radius with Internal Fixation Device, Open Approach (ICD-10-PCS; principal; 2020-06-20)
DX: S52.501A Unspecified fracture of the lower end of right radius, initial encounter for closed fracture (principal); E87.1 Hypo-osmolality and hyponatremia; N17.9 Acute kidney failure, unspecified; N39.0 Urinary tract infection, site not specified; R41.0 Disorientation, unspecified; W18.30XA Fall on same level, unspecified, initial encounter; E78.00 Pure hypercholesterolemia, unspecified; I25.10 Atherosclerotic heart disease of native coronary artery without angina pectoris; E86.0 Dehydration; E03.9 Hypothyroidism, unspecified; M19.90 Unspecified osteoarthritis, unspecified site; E11.9 Type 2 diabetes mellitus without complications; Z95.5 Presence of coronary angioplasty implant and graft; Z90.49 Acquired absence of other specified parts of digestive tract; Z98.51 Tubal ligation status; Z79.01 Long term (current) use of anticoagulants; Z79.82 Long term (current) use of aspirin; Z79.899 Other long term (current) drug therapy; Z79.84 Long term (current) use of oral hypoglycemic drugs
CPT/HCPCS: 29505; 36415; 36416; 64450; 71045; 72148; 72170; 76000; 80048; 80053; 81003; 81015; 82533; 83735; 84100; 85025; 85610; 85730; 87086; 87635; 93005; 93970; 96365; 96375; 96376; C1713; G0378; G0390; J0690; J1815; J1885; J2270; J2405; J2704; J3010; J3475; U0003

== ENCOUNTER 2020-09-14 14:37 | Outpatient (CLI) | payer MEDICARE ==
--- NOTE | 2020-09-14 15:24 | ULT ---
EXAM: Right lower extremity venous Doppler HISTORY: Right lower extremity swelling/edema. FINDINGS: Grayscale, color-flow, Doppler evaluation, spectral analysis of the right lower extremity venous stru ctures is performed with 2-D imaging. The right common femoral, superficial femoral, popliteal, posterior tibial, proximal greater saphenous and profunda femoral veins are imaged. There is normal luminal compressibility, flow, and augmentation in the visualized deep venous structu res of the right lower extremity. Minimal subcutaneous edema is seen in the distal right lower extremity. IMPRESSION: No evidence of a deep vein thrombosis in the visualized deep venous structures right lower extremity. Minimal subcutaneous soft tissue swelling distal right lower extremity.
== END 2020-09-14 14:38 | disposition home or self-care (01) ==
LOC: BICULT 14:37
PROVIDERS: ATTEND Family Medicine
DX: M79.89 Other specified soft tissue disorders (principal); I48.19 Other persistent atrial fibrillation
CPT/HCPCS: 36415; 80053; 80061; 82306; 84443; 85025

== ENCOUNTER 2020-11-23 19:32 | Emergency (ER) | payer MEDICARE ==
[2020-11-23 21:03] LABS: #Lymphocytes 1.2 thou/uL (1.20-3.40); #Monocytes 0.6 thou/uL (0.11-0.59); #Neutrophils 8.6 thou/uL (1.40-6.50); %Basophils 0.2 % (0.0-1.0); %Eosinophils 0.4 % (0.0-10.0); %Lymphocytes 11.8 % (21.0-51.0); %Neutrophils 81.6 % (42.0-75.0); Hemoglobin 12.5 g/dL (12.0-16.0); Mean Corpuscular HGB CONC 32.2 g/dL (32.0-36.0); Mean Corpuscular Hemoglobin 31.4 pg (27.0-31.0); Mean Corpuscular Volume 97.4 fL (78.0-98.0); Mean Platelet Volume 7.6 fL (7.4-10.4); Platelet Count 234 thou/uL (130-400); RBC Distribution Width 14.3 % (11.5-14.5); Red Blood Cell (RBC) Count 3.99 mill/uL (4.20-5.40); White Blood Cell (WBC) Count 10.5 thou/uL (4.8-10.8)
[2020-11-23 21:17] LABS: Bilirubin Negative (Negative); Blood, Urine Negative (Negative); Clarity Clear (Clear); Glucose, Urine (Dipstick) Normal (Negative); Ketone, Urine Negative (Negative); Leukocyte Negative Leu/uL (Negative); Nitrite Negative (Negative); Protein, Urine (Dipstick) Negative (Neg-Trace); Specific Gravity, Urine 1.008 (1.002-1.036); Urobilinogen Normal mg/dL (Less than 2)
[2020-11-23 21:23] LABS: ALT (SGPT) 15 U/L (8-55); AST (SGOT) 19 U/L (5-34); Albumin 3.9 g/dL (3.4-4.8); Alkaline Phosphatase 123 U/L (40-110); Anion Gap 14 mmol/L (10-20); BUN (Urea Nitrogen) 13 mg/dL (9.8-20.1); Bilirubin, Total 1.1 mg/dL (0.2-1.2); CK (CPK) 63 U/L (29-168); Calc. Creatinine Clearance 0 mL/min (70-130); Calcium 9.2 mg/dL (7.8-10.44); Carbon Dioxide 28 mmol/L (23-31); Chloride 99 mmol/L (98-107); Globulin 3.5 g/dL (2.4-3.5); Glucose 134 mg/dL (83-110); Protein, Total 7.4 g/dL (5.8-8.1); Sodium 137 mmol/L (136-145)
== END 2020-11-23 22:59 | disposition home or self-care (01) ==
LOC: ERS 19:32
DX: R53.1 Weakness (principal); E78.5 Hyperlipidemia, unspecified; E11.9 Type 2 diabetes mellitus without complications; Z79.899 Other long term (current) drug therapy
CPT/HCPCS: 36415; 71045; 80053; 81003; 82550; 85025; 87086; 93005

== ENCOUNTER 2021-01-30 09:58 | Outpatient (CLI) | payer MEDICARE | END 2021-01-30 09:59 | disposition home or self-care (01) | LOC: BICMAMMO 09:58 | PROVIDERS: ATTEND Internal Medicine Medical Oncology | DX: Z08 Encounter for follow-up examination after completed treatment for malignant neoplasm (principal); Z85.3 Personal history of malignant neoplasm of breast | CPT/HCPCS: 77066; G0279 ==

== ENCOUNTER 2021-08-20 15:13 | Outpatient (CLI) | payer MEDICARE | END 2021-08-20 15:14 | disposition home or self-care (01) | LOC: BICRAD 15:13 | PROVIDERS: ATTEND Internal Medicine Cardiovascular Disease | DX: R06.00 Dyspnea, unspecified (principal); J98.4 Other disorders of lung; M47.814 Spondylosis without myelopathy or radiculopathy, thoracic region; M51.34 Other intervertebral disc degeneration, thoracic region; M25.78 Osteophyte, vertebrae; I70.0 Atherosclerosis of aorta | CPT/HCPCS: 36415; 71046; 80076; 83880; 84443; 85025 ==

== ENCOUNTER 2021-10-17 10:29 | Outpatient (CLI) | payer MEDICARE | END 2021-10-17 10:30 | disposition home or self-care (01) | LOC: BICULT 10:29 | PROVIDERS: ATTEND Family Medicine | DX: R10.2 Pelvic and perineal pain (principal) | CPT/HCPCS: 76856 ==

== ENCOUNTER 2021-12-06 12:00 | Inpatient (IN) | payer MEDICARE ==
[2021-12-06 13:02] LABS: #Basophils 0.1 thou/uL (0.0-0.2); #Eosinphils 0.1 thou/uL (0.0-0.7); #Lymphocytes 1.7 thou/uL (1.20-3.40); #Monocytes 0.7 thou/uL (0.11-0.59); %Basophils 0.7 % (0.0-1.0); %Eosinophils 1.1 % (0.0-10.0); %Lymphocytes 20.3 % (21.0-51.0); %Monocytes 7.7 % (0.0-10.0); %Neutrophils 70.2 % (42.0-75.0); Hemoglobin 12.9 g/dL (12.0-16.0); Mean Corpuscular HGB CONC 32.1 g/dL (32.0-36.0); Mean Corpuscular Hemoglobin 33.8 pg (27.0-31.0); Platelet Count 286 thou/uL (130-400); RBC Distribution Width 12.7 % (11.5-14.5); Red Blood Cell (RBC) Count 3.81 mill/uL (4.20-5.40); White Blood Cell (WBC) Count 8.5 thou/uL (4.8-10.8)
[2021-12-06 13:31] LABS: ALT (SGPT) 38 U/L (8-55); AST (SGOT) 48 U/L (5-34); Albumin 3.7 g/dL (3.4-4.8); Alkaline Phosphatase 85 U/L (40-110); Anion Gap 12 mmol/L (10-20); BUN (Urea Nitrogen) 18 mg/dL (9.8-20.1); Bilirubin, Total 0.9 mg/dL (0.2-1.2); Calc. Creatinine Clearance 0 mL/min (70-130); Calcium 9.3 mg/dL (7.8-10.44); Carbon Dioxide 27 mmol/L (23-31); Chloride 104 mmol/L (98-107); Glucose 128 mg/dL (83-110); Lipase 40 U/L (8-78); Potassium 5.2 mmol/L (3.5-5.1); Protein, Total 7.7 g/dL (5.8-8.1); Sodium 138 mmol/L (136-145)
[2021-12-06 14:02] LABS: Bilirubin Negative (Negative); Blood, Urine Negative (Negative); Clarity Clear (Clear); Glucose, Urine (Dipstick) Normal (Negative); Ketone, Urine Negative (Negative); Leukocyte Negative Leu/uL (Negative); Nitrite Negative (Negative); Protein, Urine (Dipstick) Negative (Neg-Trace); Urobilinogen Normal mg/dL (Less than 2); pH, Urine 6.5 (5.0-9.0)
[2021-12-06] MEDS ORDERED: Furosemide 40 MG/4 ML VIAL ONE (15:12)
[2021-12-06 15:24] LABS: SARS-CoV-2 NAA Rapid Test Not Detected (NotDetected)
[2021-12-06] MEDS ORDERED: Dextrose 5% in Water 1,000 ML IV PRN (15:54)
[2021-12-06] MEDS ORDERED: Guaifenesin DM 100-10/5 ML UDCUP PO PRN (15:54)
[2021-12-06] MEDS ORDERED: Ondansetron PF 4 MG/2 ML Vial IVP PRN (15:54)
[2021-12-06] MEDS ORDERED: Acetaminophen 650 MG Suppository PR PRN (15:54)
[2021-12-06] MEDS ORDERED: Senokot S 8.6-50 MG TAB PO PRN (15:54)
[2021-12-06] MEDS ORDERED: Dextrose 50% Abboject 50 ML SYRINGE SLOW IVP PRN (15:54)
[2021-12-06] MEDS ORDERED: HumaLOG 300 UNITS/3 ML VIAL SC PRN (15:54)
[2021-12-06 15:56] VITALS: BMI 36.7
[2021-12-06] MEDS: metFORMIN 500 MG TAB PO SCH (17:58)
[2021-12-06] MEDS: Apixaban 5 MG TAB PO SCH (21:30)
[2021-12-06] MEDS: Famotidine 20 MG TAB PO SCH (21:30)
[2021-12-07 04:21] LABS: #Eosinphils 0.1 thou/uL (0.0-0.7); #Lymphocytes 2.3 thou/uL (1.20-3.40); #Monocytes 0.8 thou/uL (0.11-0.59); #Neutrophils 5.7 thou/uL (1.40-6.50); %Basophils 0.5 % (0.0-1.0); %Eosinophils 1.4 % (0.0-10.0); %Lymphocytes 25.5 % (21.0-51.0); %Neutrophils 63.6 % (42.0-75.0); Hemoglobin 12.5 g/dL (12.0-16.0); Mean Corpuscular HGB CONC 33.3 g/dL (32.0-36.0); Mean Corpuscular Hemoglobin 34.9 pg (27.0-31.0); Mean Platelet Volume 7.5 fL (7.4-10.4); Platelet Count 265 thou/uL (130-400); RBC Distribution Width 12.4 % (11.5-14.5); Red Blood Cell (RBC) Count 3.57 mill/uL (4.20-5.40); White Blood Cell (WBC) Count 8.9 thou/uL (4.8-10.8)
[2021-12-07 04:35] LABS: Anion Gap 12 mmol/L (10-20); BUN (Urea Nitrogen) 24 mg/dL (9.8-20.1); Calc. Creatinine Clearance 58 mL/min (70-130); Calcium 8.7 mg/dL (7.8-10.44); Carbon Dioxide 32 mmol/L (23-31); Chloride 100 mmol/L (98-107); Glucose 95 mg/dL (83-110); Potassium 3.5 mmol/L (3.5-5.1); Sodium 140 mmol/L (136-145)
[2021-12-07] MEDS: Furosemide 40 MG/4 ML VIAL SLOW IVP SCH ×2 (05:51→15:42)
[2021-12-07] MEDS: Levothyroxine Sodium 125 MCG TAB PO SCH (05:51)
[2021-12-07] MEDS: Acetaminophen 325 MG TAB PO PRN (06:08)
[2021-12-07] MEDS: Apixaban 5 MG TAB PO SCH ×2 (08:47→20:25)
[2021-12-07] MEDS: Anastrozole 1 MG TAB PO SCH (08:48)
[2021-12-07] MEDS: Losartan 25 MG TAB PO SCH (08:48)
[2021-12-07] MEDS: metFORMIN 500 MG TAB PO SCH ×2 (08:49→18:02)
[2021-12-07] MEDS: Atorvastatin Calcium 20 MG TAB PO SCH (08:49)
[2021-12-07] MEDS: Famotidine 20 MG TAB PO SCH (08:53)
[2021-12-07] MEDS: HumaLOG 300 UNITS/3 ML VIAL SC PRN (11:24)
[2021-12-08] MEDS: Levothyroxine Sodium 125 MCG TAB PO SCH (06:08)
[2021-12-08] MEDS: Furosemide 40 MG/4 ML VIAL SLOW IVP SCH ×2 (06:08→15:36)
[2021-12-08] MEDS: Anastrozole 1 MG TAB PO SCH (08:52)
[2021-12-08] MEDS: metFORMIN 500 MG TAB PO SCH ×2 (08:52→16:34)
[2021-12-08] MEDS: Apixaban 5 MG TAB PO SCH ×2 (08:52→20:14)
[2021-12-08] MEDS: Losartan 25 MG TAB PO SCH (08:52)
[2021-12-08] MEDS: Atorvastatin Calcium 20 MG TAB PO SCH (08:52)
[2021-12-08] MEDS ORDERED: Famotidine 20 MG TAB PO SCH (09:00)
[2021-12-08] MEDS: Acetaminophen 325 MG TAB PO PRN ×2 (09:51→20:12)
[2021-12-08] MEDS ORDERED: Electrolyte Replacement Protocol FS PRN (10:45)
[2021-12-08] MEDS ORDERED: Electrolyte Replacement Protocol 1 EACH FS SCH (10:45)
[2021-12-08 11:31] LABS: Anion Gap 21 mmol/L (10-20); BUN (Urea Nitrogen) 26 mg/dL (9.8-20.1); Calc. Creatinine Clearance 45 mL/min (70-130); Calcium 9.4 mg/dL (7.8-10.44); Carbon Dioxide 27 mmol/L (23-31); Chloride 94 mmol/L (98-107); Glucose 178 mg/dL (83-110); Magnesium 1.7 mg/dL (1.6-2.6); Phosphorus 4.4 mg/dL (2.3-4.7); Potassium 3.6 mmol/L (3.5-5.1); Sodium 138 mmol/L (136-145)
[2021-12-08] MEDS: HumaLOG 300 UNITS/3 ML VIAL SC PRN (11:41)
[2021-12-08] MEDS: Ondansetron ODT 4 MG TAB PO PRN ×2 (11:41→20:14)
[2021-12-08] MEDS ORDERED: Magnesium 2 GM/50 ML(in water) 2 GM in Premix Bag 1 BAG IVPB SCH (12:45)
[2021-12-08] MEDS ORDERED: Cyanocobalamin (Vitamin B-12) 1,000 MCG TAB PO SCH (21:00)
[2021-12-09 05:00] LABS: Anion Gap 12 mmol/L (10-20); BUN (Urea Nitrogen) 30 mg/dL (9.8-20.1); Calc. Creatinine Clearance 39 mL/min (70-130); Calcium 9.1 mg/dL (7.8-10.44); Carbon Dioxide 33 mmol/L (23-31); Chloride 96 mmol/L (98-107); Glucose 83 mg/dL (83-110); Magnesium 2.3 mg/dL (1.6-2.6); Phosphorus 4.7 mg/dL (2.3-4.7); Potassium 3.4 mmol/L (3.5-5.1); Sodium 138 mmol/L (136-145)
[2021-12-09] MEDS ORDERED: Potassium Chloride 20 MEQ TAB PO SCH (05:15)
[2021-12-09] MEDS: Levothyroxine Sodium 125 MCG TAB PO SCH (05:19)
[2021-12-09 05:53] LABS: #Eosinphils 0.1 thou/uL (0.0-0.7); #Lymphocytes 2.6 thou/uL (1.20-3.40); #Monocytes 0.9 thou/uL (0.11-0.59); #Neutrophils 5.2 thou/uL (1.40-6.50); %Basophils 0.5 % (0.0-1.0); %Eosinophils 1.2 % (0.0-10.0); %Lymphocytes 29.4 % (21.0-51.0); %Monocytes 9.7 % (0.0-10.0); %Neutrophils 59.2 % (42.0-75.0); Hemoglobin 12.5 g/dL (12.0-16.0); Mean Corpuscular Hemoglobin 33.6 pg (27.0-31.0); Mean Platelet Volume 7.8 fL (7.4-10.4); Platelet Count 294 thou/uL (130-400); RBC Distribution Width 12.6 % (11.5-14.5); Red Blood Cell (RBC) Count 3.71 mill/uL (4.20-5.40); White Blood Cell (WBC) Count 8.8 thou/uL (4.8-10.8)
[2021-12-09] MEDS: Anastrozole 1 MG TAB PO SCH (09:39)
[2021-12-09] MEDS: Atorvastatin Calcium 20 MG TAB PO SCH (09:39)
[2021-12-09] MEDS: Apixaban 5 MG TAB PO SCH (09:39)
[2021-12-09 12:02] VITALS: BP 128/72; TEMP 97.8
== END 2021-12-09 12:31 | disposition home or self-care (01) | DRG 917 ==
LOC: ERS 12:00 → ERHOLD 14:37 → 2NO 18:25
PROVIDERS: ADMIT Emergency Medicine; ATTEND Internal Medicine
DX: T46.2X1A Poisoning by other antidysrhythmic drugs, accidental (unintentional), initial encounter (principal); I50.33 Acute on chronic diastolic (congestive) heart failure; I13.0 Hypertensive heart and chronic kidney disease with heart failure and stage 1 through stage 4 chronic kidney disease, or unspecified chronic kidney disease; N17.9 Acute kidney failure, unspecified; Z20.822 Contact with and (suspected) exposure to COVID-19; I25.10 Atherosclerotic heart disease of native coronary artery without angina pectoris; E78.5 Hyperlipidemia, unspecified; E78.00 Pure hypercholesterolemia, unspecified; N18.30 Chronic kidney disease, stage 3 unspecified; E11.22 Type 2 diabetes mellitus with diabetic chronic kidney disease; I48.0 Paroxysmal atrial fibrillation; R00.1 Bradycardia, unspecified; K21.9 Gastro-esophageal reflux disease without esophagitis; E03.9 Hypothyroidism, unspecified; E53.8 Deficiency of other specified B group vitamins; Z90.49 Acquired absence of other specified parts of digestive tract; Z98.86 Personal history of breast implant removal; Z79.01 Long term (current) use of anticoagulants; Z79.890 Hormone replacement therapy; Z79.84 Long term (current) use of oral hypoglycemic drugs; Z79.899 Other long term (current) drug therapy
CPT/HCPCS: 36415; 36416; 71045; 80048; 80053; 81003; 82607; 82746; 83690; 83735; 83880; 84100; 84443; 84484; 85025; 87086; 93005; 94760; 96374; J1940; J3475; Q0162; U0002

== ENCOUNTER 2021-12-20 13:21 | Inpatient (IN) | payer MEDICARE ==
[2021-12-20] MEDS ORDERED: Ondansetron PF 4 MG/2 ML Vial ONE (13:40)
[2021-12-20] MEDS ORDERED: Atropine Sulfate 1 mg/10 ml Syringe ONE (13:40)
[2021-12-20 14:22] LABS: #Eosinphils 0.1 thou/uL (0.0-0.7); #Lymphocytes 1.6 thou/uL (1.20-3.40); #Monocytes 0.8 thou/uL (0.11-0.59); #Neutrophils 6.4 thou/uL (1.40-6.50); %Basophils 0.2 % (0.0-1.0); %Eosinophils 1.5 % (0.0-10.0); %Lymphocytes 18.3 % (21.0-51.0); %Monocytes 8.5 % (0.0-10.0); %Neutrophils 71.5 % (42.0-75.0); Hemoglobin 11.6 g/dL (12.0-16.0); Mean Corpuscular Hemoglobin 34.2 pg (27.0-31.0); Mean Platelet Volume 7.8 fL (7.4-10.4); Platelet Count 233 thou/uL (130-400); RBC Distribution Width 12.4 % (11.5-14.5); Red Blood Cell (RBC) Count 3.41 mill/uL (4.20-5.40); White Blood Cell (WBC) Count 8.9 thou/uL (4.8-10.8)
[2021-12-20 14:42] LABS: ALT (SGPT) 24 U/L (8-55); AST (SGOT) 26 U/L (5-34); Albumin 3.8 g/dL (3.4-4.8); Alkaline Phosphatase 87 U/L (40-110); Anion Gap 11 mmol/L (10-20); BUN (Urea Nitrogen) 13 mg/dL (9.8-20.1); Bilirubin, Total 0.7 mg/dL (0.2-1.2); Calc. Creatinine Clearance 0 mL/min (70-130); Calcium 8.9 mg/dL (7.8-10.44); Carbon Dioxide 28 mmol/L (23-31); Chloride 104 mmol/L (98-107); Glucose 150 mg/dL (83-110); Potassium 4.8 mmol/L (3.5-5.1); Protein, Total 6.8 g/dL (5.8-8.1); Sodium 138 mmol/L (136-145)
[2021-12-20] MEDS ORDERED: Dextrose 50% Abboject 50 ML SYRINGE SLOW IVP PRN (16:00)
[2021-12-20] MEDS ORDERED: Acetaminophen 325 MG TAB PO PRN (16:00)
[2021-12-20] MEDS ORDERED: Ondansetron PF 4 MG/2 ML Vial IVP PRN (16:00)
[2021-12-20] MEDS ORDERED: HumaLOG 300 UNITS/3 ML VIAL SC PRN (16:00)
[2021-12-20] MEDS ORDERED: Dextrose 5% in Water 1,000 ML IV PRN (16:00)
[2021-12-20] MEDS ORDERED: Senokot S 8.6-50 MG TAB PO PRN (16:00)
[2021-12-20] MEDS ORDERED: Ondansetron ODT 4 MG TAB PO PRN (16:00)
[2021-12-20] MEDS ORDERED: Furosemide 40 MG/4 ML VIAL SLOW IVP SCH (16:36)
[2021-12-20 17:49] LABS: Troponin I Less than 0.010 ng/mL (< 0.028)
[2021-12-20 18:19] VITALS: BMI 37.9
[2021-12-20 19:32] LABS: SARS-CoV-2 NAA Rapid Test Not Detected (NotDetected)
[2021-12-20] MEDS: Atorvastatin Calcium 20 MG TAB PO SCH (20:42)
[2021-12-20 20:51] LABS: Troponin I Less than 0.010 ng/mL (< 0.028)
[2021-12-20] MEDS ORDERED: Apixaban 5 MG TAB PO SCH (21:00)
[2021-12-21 04:50] LABS: ALT (SGPT) 23 U/L (8-55); AST (SGOT) 22 U/L (5-34); Albumin 3.6 g/dL (3.4-4.8); Alkaline Phosphatase 84 U/L (40-110); Anion Gap 12 mmol/L (10-20); BUN (Urea Nitrogen) 16 mg/dL (9.8-20.1); Bilirubin, Total 0.7 mg/dL (0.2-1.2); Calc. Creatinine Clearance 63 mL/min (70-130); Calcium 8.9 mg/dL (7.8-10.44); Carbon Dioxide 32 mmol/L (23-31); Chloride 101 mmol/L (98-107); Glucose 91 mg/dL (83-110); Protein, Total 6.6 g/dL (5.8-8.1); Sodium 141 mmol/L (136-145)
[2021-12-21] MEDS: Furosemide 20 MG/2 ML VIAL SLOW IVP SCH ×3 (05:17→15:33)
[2021-12-21] MEDS: Levothyroxine Sodium 125 MCG TAB PO SCH (05:17)
[2021-12-21] MEDS: Anastrozole 1 MG TAB PO SCH (08:57)
[2021-12-21] MEDS: Calcium Carbonate 600 MG + Vit D TAB PO SCH (08:58)
[2021-12-21] MEDS: Losartan 25 MG TAB PO SCH (08:58)
[2021-12-21] MEDS: Cyanocobalamin (Vitamin B-12) 1,000 MCG TAB PO SCH (08:58)
[2021-12-21] MEDS: HumaLOG 300 UNITS/3 ML VIAL SC PRN ×2 (11:41→18:33)
[2021-12-21 12:12] LABS: Bilirubin Negative (Negative); Blood, Urine Negative (Negative); Clarity Clear (Clear); Glucose, Urine (Dipstick) Normal (Negative); Ketone, Urine Negative (Negative); Leukocyte Negative Leu/uL (Negative); Nitrite Negative (Negative); Protein, Urine (Dipstick) Negative (Neg-Trace); RBC/HPF 0-3 HPF (0-3); Specific Gravity, Urine 1.007 (1.002-1.036); Squamous Epithelial 0-3 HPF (0-3); Urobilinogen Normal mg/dL (Less than 2); WBC/HPF 0-3 HPF (0-3)
[2021-12-21 12:15] LABS: Bacteria/HPF 1+ HPF (None Seen)
[2021-12-21] MEDS: Atorvastatin Calcium 20 MG TAB PO SCH (20:42)
[2021-12-22] MEDS: Levothyroxine Sodium 125 MCG TAB PO SCH (05:06)
[2021-12-22 05:35] LABS: ALT (SGPT) 22 U/L (8-55); AST (SGOT) 25 U/L (5-34); Albumin 3.7 g/dL (3.4-4.8); Alkaline Phosphatase 76 U/L (40-110); Anion Gap 13 mmol/L (10-20); BUN (Urea Nitrogen) 21 mg/dL (9.8-20.1); Calc. Creatinine Clearance 54 mL/min (70-130); Calcium 8.8 mg/dL (7.8-10.44); Carbon Dioxide 31 mmol/L (23-31); Chloride 99 mmol/L (98-107); Globulin 2.9 g/dL (2.4-3.5); Glucose 85 mg/dL (83-110); Potassium 3.8 mmol/L (3.5-5.1); Protein, Total 6.6 g/dL (5.8-8.1); Sodium 139 mmol/L (136-145)
[2021-12-22] MEDS: Cyanocobalamin (Vitamin B-12) 1,000 MCG TAB PO SCH (08:54)
[2021-12-22] MEDS: Calcium Carbonate 600 MG + Vit D TAB PO SCH (08:54)
[2021-12-22] MEDS: Anastrozole 1 MG TAB PO SCH (08:55)
[2021-12-22] MEDS: Losartan 25 MG TAB PO SCH (08:55)
[2021-12-22] MEDS: HumaLOG 300 UNITS/3 ML VIAL SC PRN (12:12)
[2021-12-22] MEDS: Atorvastatin Calcium 20 MG TAB PO SCH (19:15)
[2021-12-23 04:59] LABS: ALT (SGPT) 22 U/L (8-55); AST (SGOT) 27 U/L (5-34); Albumin 3.4 g/dL (3.4-4.8); Alkaline Phosphatase 78 U/L (40-110); Anion Gap 12 mmol/L (10-20); BUN (Urea Nitrogen) 17 mg/dL (9.8-20.1); Calc. Creatinine Clearance 70 mL/min (70-130); Calcium 8.9 mg/dL (7.8-10.44); Carbon Dioxide 31 mmol/L (23-31); Chloride 101 mmol/L (98-107); Glucose 97 mg/dL (83-110); Potassium 4.1 mmol/L (3.5-5.1); Protein, Total 6.4 g/dL (5.8-8.1); Sodium 140 mmol/L (136-145)
[2021-12-23] MEDS: Levothyroxine Sodium 125 MCG TAB PO SCH (06:13)
[2021-12-23] MEDS: Cyanocobalamin (Vitamin B-12) 1,000 MCG TAB PO SCH (07:47)
[2021-12-23] MEDS: Anastrozole 1 MG TAB PO SCH (07:48)
[2021-12-23] MEDS: Losartan 25 MG TAB PO SCH (07:48)
[2021-12-23] MEDS: Calcium Carbonate 600 MG + Vit D TAB PO SCH (07:48)
[2021-12-23] MEDS: HumaLOG 300 UNITS/3 ML VIAL SC PRN ×2 (11:03→17:58)
[2021-12-23] MEDS: Atorvastatin Calcium 20 MG TAB PO SCH (21:55)
[2021-12-24] MEDS: Levothyroxine Sodium 125 MCG TAB PO SCH (06:21)
[2021-12-24] MEDS ORDERED: Gentamicin 80 MG/2 ML VIAL ONE (06:54)
[2021-12-24] MEDS ORDERED: ceFAZolin 2 GM/Dextrose 50 ML IVPB ONE (06:57)
[2021-12-24] MEDS ORDERED: CEFAZOLIN 1 GM VIAL ONE (06:57)
[2021-12-24] MEDS ORDERED: Sodium Chloride 0.9% 10 ML ONE (06:57)
[2021-12-24] MEDS: Losartan 25 MG TAB PO SCH (07:32)
[2021-12-24] MEDS ORDERED: Fentanyl 100 MCG/2 ML VIAL ONE (08:13)
[2021-12-24] MEDS ORDERED: Midazolam HCl 2 mg/2 ml Vial ONE (08:13)
[2021-12-24] MEDS: Cyanocobalamin (Vitamin B-12) 1,000 MCG TAB PO SCH (11:17)
[2021-12-24] MEDS: Anastrozole 1 MG TAB PO SCH (11:18)
[2021-12-24] MEDS: Calcium Carbonate 600 MG + Vit D TAB PO SCH (11:18)
[2021-12-24] MEDS: Atorvastatin Calcium 20 MG TAB PO SCH (21:04)
[2021-12-25] MEDS: Levothyroxine Sodium 125 MCG TAB PO SCH (05:43)
[2021-12-25] MEDS: Calcium Carbonate 600 MG + Vit D TAB PO SCH (08:55)
[2021-12-25] MEDS: Cyanocobalamin (Vitamin B-12) 1,000 MCG TAB PO SCH (08:55)
[2021-12-25] MEDS: Losartan 25 MG TAB PO SCH (08:56)
[2021-12-25] MEDS: Anastrozole 1 MG TAB PO SCH (08:56)
[2021-12-25 11:46] VITALS: BP 168/74; TEMP 98.7
[2021-12-25] MEDS: HumaLOG 300 UNITS/3 ML VIAL SC PRN (12:20)
== END 2021-12-25 15:18 | disposition home or self-care (01) | DRG 242 ==
LOC: ERS 13:21 → 2NO 15:38
PROVIDERS: ADMIT Hospitalist; ATTEND Hospitalist
PROC: 0JH606Z Insertion of Pacemaker, Dual Chamber into Chest Subcutaneous Tissue and Fascia, Open Approach (ICD-10-PCS; principal; 2021-12-24)
PROC: 02H63JZ Insertion of Pacemaker Lead into Right Atrium, Percutaneous Approach (ICD-10-PCS; 2021-12-24)
PROC: 02HK3JZ Insertion of Pacemaker Lead into Right Ventricle, Percutaneous Approach (ICD-10-PCS; 2021-12-24)
DX: I49.5 Sick sinus syndrome (principal); I50.33 Acute on chronic diastolic (congestive) heart failure; Z20.822 Contact with and (suspected) exposure to COVID-19; E11.9 Type 2 diabetes mellitus without complications; I48.0 Paroxysmal atrial fibrillation; I11.0 Hypertensive heart disease with heart failure; I25.10 Atherosclerotic heart disease of native coronary artery without angina pectoris; E78.5 Hyperlipidemia, unspecified; K21.9 Gastro-esophageal reflux disease without esophagitis; E03.9 Hypothyroidism, unspecified; C50.912 Malignant neoplasm of unspecified site of left female breast; D64.9 Anemia, unspecified; Z95.5 Presence of coronary angioplasty implant and graft; Z79.01 Long term (current) use of anticoagulants; Z79.890 Hormone replacement therapy; Z79.899 Other long term (current) drug therapy; Z79.84 Long term (current) use of oral hypoglycemic drugs; Z86.718 Personal history of other venous thrombosis and embolism; Z90.49 Acquired absence of other specified parts of digestive tract; Z82.3 Family history of stroke; Z83.3 Family history of diabetes mellitus; Z90.12 Acquired absence of left breast and nipple; Z98.51 Tubal ligation status
CPT/HCPCS: 33208; 36415; 36416; 71045; 80053; 81001; 83880; 84484; 85025; 93005; 93010; 96374; 96375; 97139; 99152; 99153; C1785; C1898; J0461; J0690; J1580; J1815; J1940; J2250; J2405; J3010; U0002

== ENCOUNTER 2022-02-01 09:19 | Outpatient (CLI) | payer MEDICARE | END 2022-02-01 09:20 | disposition home or self-care (01) | LOC: BICMAMMO 09:19 | PROVIDERS: ATTEND Internal Medicine Medical Oncology | DX: C50.812 Malignant neoplasm of overlapping sites of left female breast (principal); M81.8 Other osteoporosis without current pathological fracture; M81.0 Age-related osteoporosis without current pathological fracture; R92.1 Mammographic calcification found on diagnostic imaging of breast; R92.2 Inconclusive mammogram; Z98.890 Other specified postprocedural states | CPT/HCPCS: 77066; G0279 ==

== ENCOUNTER 2022-03-04 11:32 | Emergency (ER) | payer MEDICARE ==
[2022-03-04 14:21] LABS: #Eosinphils 0.1 thou/uL (0.0-0.7); #Lymphocytes 2.2 thou/uL (1.20-3.40); #Neutrophils 7.4 thou/uL (1.40-6.50); %Basophils 0.4 % (0.0-1.0); %Eosinophils 1.4 % (0.0-10.0); %Lymphocytes 20.5 % (21.0-51.0); %Monocytes 9.5 % (0.0-10.0); %Neutrophils 68.3 % (42.0-75.0); Hemoglobin 12.3 g/dL (12.0-16.0); Mean Corpuscular HGB CONC 31.4 g/dL (32.0-36.0); Mean Corpuscular Hemoglobin 32.4 pg (27.0-31.0); Mean Platelet Volume 8.1 fL (7.4-10.4); Platelet Count 225 thou/uL (130-400); RBC Distribution Width 12.6 % (11.5-14.5); White Blood Cell (WBC) Count 10.8 thou/uL (4.8-10.8)
[2022-03-04 14:42] LABS: ALT (SGPT) 14 U/L (8-55); AST (SGOT) 20 U/L (5-34); Albumin 3.7 g/dL (3.4-4.8); Alkaline Phosphatase 83 U/L (40-110); Anion Gap 15 mmol/L (10-20); BUN (Urea Nitrogen) 16 mg/dL (9.8-20.1); Bilirubin, Total 1.1 mg/dL (0.2-1.2); Calc. Creatinine Clearance 0 mL/min (70-130); Calcium 9.3 mg/dL (7.8-10.44); Carbon Dioxide 29 mmol/L (23-31); Chloride 101 mmol/L (98-107); Estimated GFR 58; Globulin 3.5 g/dL (2.4-3.5); Glucose 88 mg/dL (83-110); Potassium 4.1 mmol/L (3.5-5.1); Protein, Total 7.2 g/dL (5.8-8.1); Sodium 141 mmol/L (136-145)
[2022-03-04 15:04] LABS: Clarity Hazy (Clear); Leukocyte Unable to Interpret Leu/uL (Negative); Nitrite Unable to Interpret (Negative); Protein, Urine (Dipstick) Unable to Interpret mg/dL (Neg-Trace); Specific Gravity, Urine 1.024 (1.002-1.036); pH, Urine 5.7 (5.0-9.0)
[2022-03-04 15:05] LABS: Bilirubin Unable to Interpret (Negative); Blood, Urine Unable to Interpret (Negative); Glucose, Urine (Dipstick) Unable to Interpret mg/dL (Negative); Ketone, Urine Unable to Interpret mg/dL (Negative); Urobilinogen UNABLE TO INTERPRET mg/dL (Less than 2)
[2022-03-04 15:06] LABS: Bacteria/HPF 1+ HPF (None Seen); RBC/HPF None Seen HPF (0-3); Squamous Epithelial 0-3 HPF (0-3); WBC/HPF 0-3 HPF (0-3)
[2022-03-04] MEDS ORDERED: traMADol HCl 50 MG TAB ONE (15:07)
== END 2022-03-04 12:15 | disposition home or self-care (01) ==
LOC: ERS 11:32
DX: S20.221A Contusion of right back wall of thorax, initial encounter (principal); R55 Syncope and collapse; E78.5 Hyperlipidemia, unspecified; E78.00 Pure hypercholesterolemia, unspecified; I25.10 Atherosclerotic heart disease of native coronary artery without angina pectoris; E11.9 Type 2 diabetes mellitus without complications; E03.9 Hypothyroidism, unspecified; I48.91 Unspecified atrial fibrillation; Z79.899 Other long term (current) drug therapy; Z79.01 Long term (current) use of anticoagulants; Z79.84 Long term (current) use of oral hypoglycemic drugs; W18.30XA Fall on same level, unspecified, initial encounter; Y92.091 Bathroom in other non-institutional residence as the place of occurrence of the external cause
CPT/HCPCS: 36415; 80053; 81003; 81015; 83880; 85025; 87086; 93005

== ENCOUNTER 2022-05-07 07:53 | Outpatient (CLI) | payer MEDICARE | END 2022-05-07 07:54 | disposition home or self-care (01) | LOC: BICMAMMO 07:53 | PROVIDERS: ATTEND Internal Medicine Medical Oncology | DX: M81.0 Age-related osteoporosis without current pathological fracture (principal); M85.88 Other specified disorders of bone density and structure, other site | CPT/HCPCS: 77080 ==

== ENCOUNTER 2022-05-27 10:48 | Outpatient (CLI) | payer MEDICARE | END 2022-05-27 10:49 | disposition home or self-care (01) | LOC: BICRAD 10:48 | PROVIDERS: ATTEND Nurse Practitioner Family | DX: R07.89 Other chest pain (principal); N64.4 Mastodynia; R06.02 Shortness of breath | CPT/HCPCS: 36415; 71046; 80048; 83880; 85025 ==

== ENCOUNTER 2023-01-06 15:49 | Observation (INO) | payer MEDICARE, OTHER ==
[2023-01-06 17:44] LABS: #Eosinphils 0.1 thou/uL (0.0-0.7); #Monocytes 0.8 thou/uL (0.11-0.59); #Neutrophils 6.5 thou/uL (1.40-6.50); %Basophils 0.3 % (0.0-1.0); %Eosinophils 0.8 % (0.0-10.0); %Lymphocytes 16.4 % (21.0-51.0); %Monocytes 8.9 % (0.0-10.0); %Neutrophils 73.1 % (42.0-75.0); Hemoglobin 11.6 g/dL (12.0-16.0); Mean Corpuscular HGB CONC 31.2 g/dL (32.0-36.0); Mean Corpuscular Hemoglobin 30.3 pg (27.0-31.0); Mean Corpuscular Volume 97.1 fl (78.0-98.0); Mean Platelet Volume 10.4 fL (7.4-10.4); Platelet Count 198 10x3/uL (130-400); RBC Distribution Width 13.3 % (11.5-14.5); Red Blood Cell (RBC) Count 3.83 mill/uL (4.20-5.40); White Blood Cell (WBC) Count 8.9 10x3/uL (4.8-10.8)
[2023-01-06 18:10] LABS: ALT (SGPT) 20 U/L (8-55); AST (SGOT) 22 U/L (5-34); Albumin 3.9 g/dL (3.4-4.8); Alkaline Phosphatase 92 U/L (40-110); Anion Gap 11 mmol/L (10-20); BUN (Urea Nitrogen) 13 mg/dL (9.8-20.1); Bilirubin, Total 0.6 mg/dL (0.2-1.2); Calc. Creatinine Clearance 0 mL/min (70-130); Calcium 9.1 mg/dL (7.8-10.44); Carbon Dioxide 29 mmol/L (23-31); Chloride 103 mmol/L (98-107); Estimated GFR 57; Globulin 3.2 g/dL (2.4-3.5); Glucose 140 mg/dL (83-110); Potassium 4.2 mmol/L (3.5-5.1); Protein, Total 7.1 g/dL (5.8-8.1); Sodium 139 mmol/L (136-145)
[2023-01-06] MEDS ORDERED: Meclizine HCl 25 MG TAB ONE (18:22)
[2023-01-06] MEDS ORDERED: hydrALAZINE 20 MG/ML VIAL SLOW IVP PRN (20:14)
[2023-01-06] MEDS ORDERED: HumaLOG 300 UNITS/3 ML VIAL SC PRN ×2 (20:14)
[2023-01-06] MEDS ORDERED: Calcium Carbonate 500 MG ChewTAB PO PRN (20:14)
[2023-01-06] MEDS ORDERED: Ondansetron ODT 4 MG TAB PO PRN (20:14)
[2023-01-06] MEDS ORDERED: Senokot S 8.6-50 MG TAB PO PRN (20:14)
[2023-01-06] MEDS ORDERED: Dextrose 5% in Water 1,000 ML IV PRN (20:14)
[2023-01-06] MEDS ORDERED: Dextrose 50% Abboject 50 ML SYRINGE SLOW IVP PRN (20:14)
[2023-01-06] MEDS ORDERED: Acetaminophen 325 MG TAB PO PRN (20:14)
[2023-01-06] MEDS ORDERED: Ondansetron PF 4 MG/2 ML Vial IVP PRN (20:14)
[2023-01-06] MEDS ORDERED: Atorvastatin Calcium 40 MG TAB PO SCH (21:00)
[2023-01-06] MEDS ORDERED: Aspirin Chewable 81 MG TAB ONE (21:15)
[2023-01-06 23:55] VITALS: BMI 36.1
[2023-01-07 00:36] LABS: Bacteria/HPF None Seen HPF (None Seen); Bilirubin Negative (Negative); Blood, Urine Negative (Negative); Clarity Clear (Clear); Glucose, Urine (Dipstick) Normal (Negative); Ketone, Urine Negative (Negative); Leukocyte 25 Leu/uL (Negative); Nitrite Negative (Negative); Protein, Urine (Dipstick) Negative (Neg-Trace); RBC/HPF 0-3 HPF (0-3); Specific Gravity, Urine 1.008 (1.002-1.036); Squamous Epithelial 0-3 HPF (0-3); Urobilinogen Normal mg/dL (Less than 2); pH, Urine 7.5 (5.0-9.0)
[2023-01-07] MEDS: Meclizine HCl 25 MG TAB PO PRN ×2 (04:23→13:38)
[2023-01-07 05:04] LABS: #Eosinphils 0.1 thou/uL (0.0-0.7); #Monocytes 0.8 thou/uL (0.11-0.59); #Neutrophils 5.4 thou/uL (1.40-6.50); %Basophils 0.5 % (0.0-1.0); %Eosinophils 1.1 % (0.0-10.0); %Lymphocytes 26.3 % (21.0-51.0); %Neutrophils 62.7 % (42.0-75.0); Mean Corpuscular HGB CONC 30.7 g/dL (32.0-36.0); Mean Corpuscular Hemoglobin 30.5 pg (27.0-31.0); Mean Corpuscular Volume 99.5 fl (78.0-98.0); Mean Platelet Volume 10.7 fL (7.4-10.4); Platelet Count 188 10x3/uL (130-400); RBC Distribution Width 13.3 % (11.5-14.5); Red Blood Cell (RBC) Count 4.26 mill/uL (4.20-5.40); White Blood Cell (WBC) Count 8.5 10x3/uL (4.8-10.8)
[2023-01-07 05:12] LABS: Hemoglobin A1c 6.2 % (4.0-6.0)
[2023-01-07 05:30] LABS: Anion Gap 12 mmol/L (10-20); BUN (Urea Nitrogen) 12 mg/dL (9.8-20.1); Calc. Creatinine Clearance 77 mL/min (70-130); Calcium 9.5 mg/dL (7.8-10.44); Carbon Dioxide 27 mmol/L (23-31); Cardiac Risk 3.2 (Less than 4.5); Chloride 107 mmol/L (98-107); Cholesterol 168 mg/dl (< 200 Desired); Estimated GFR 74; Glucose 112 mg/dL (83-110); HDL Cholesterol 53 mg/dL (>60 Neg Risk); LDL Cholesterol, Calculated 87 mg/dL; Magnesium 2.3 mg/dL (1.6-2.6); Potassium 3.9 mmol/L (3.5-5.1); Sodium 142 mmol/L (136-145); Triglycerides 140 mg/dL (Less than 150)
[2023-01-07] MEDS ORDERED: Lorazepam 2 MG/ML VIAL SLOW IVP SCH (08:15)
[2023-01-07] MEDS ORDERED: Aspirin 81 mg Enteric Coated Tablet PO SCH (09:00)
[2023-01-07 12:07] VITALS: TEMP 97.7
[2023-01-07 14:01] VITALS: BP 163/74
[2023-01-07] MEDS ORDERED: Apixaban 5 MG TAB PO SCH (21:00)
[2023-01-08] MEDS ORDERED: Amiodarone 200 MG TAB PO SCH (09:00)
[2023-01-08] MEDS ORDERED: Losartan 25 MG TAB PO SCH (09:00)
[2023-01-08] MEDS ORDERED: Anastrozole 1 MG TAB PO SCH (09:00)
== END 2023-01-07 14:55 | disposition home or self-care (01) ==
LOC: ERS 15:49 → NEURO 20:14
PROVIDERS: ADMIT Hospitalist; ATTEND Hospitalist
DX: R42 Dizziness and giddiness (principal); I95.1 Orthostatic hypotension; I65.23 Occlusion and stenosis of bilateral carotid arteries; E78.00 Pure hypercholesterolemia, unspecified; I25.10 Atherosclerotic heart disease of native coronary artery without angina pectoris; E11.9 Type 2 diabetes mellitus without complications; E03.9 Hypothyroidism, unspecified; I11.0 Hypertensive heart disease with heart failure; I50.32 Chronic diastolic (congestive) heart failure; I48.0 Paroxysmal atrial fibrillation; K21.9 Gastro-esophageal reflux disease without esophagitis; I08.1 Rheumatic disorders of both mitral and tricuspid valves; Z85.3 Personal history of malignant neoplasm of breast; Z86.718 Personal history of other venous thrombosis and embolism; Z79.01 Long term (current) use of anticoagulants; Z79.890 Hormone replacement therapy; Z79.899 Other long term (current) drug therapy; Z95.0 Presence of cardiac pacemaker; Z95.5 Presence of coronary angioplasty implant and graft
CPT/HCPCS: 70450; 70551; 80048; 80053; 80061; 81001; 82962 ×2; 83036; 83735; 84443; 85025 ×2; 93005; 93306; 93880; 96374; 97116; 99285; G0378 ×2; 36415; 36416; J2060

== ENCOUNTER 2023-07-09 21:15 | Emergency (ER) | payer MEDICARE, OTHER ==
[2023-07-09 21:53] LABS: #Basophils 0.1 thou/uL (0.0-0.2); #Eosinphils 0.1 thou/uL (0.0-0.7); #Monocytes 0.9 thou/uL (0.11-0.59); %Basophils 0.6 % (0.0-1.0); %Lymphocytes 23.9 % (21.0-51.0); Hematocrit 39.4 % (36.0-47.0); Hemoglobin 12.4 g/dL (12.0-16.0); Mean Corpuscular HGB CONC 31.5 g/dL (32.0-36.0); Mean Corpuscular Hemoglobin 31.6 pg (27.0-31.0); Mean Corpuscular Volume 100.3 fl (78.0-98.0); Mean Platelet Volume 10.5 fL (7.4-10.4); Platelet Count 238 10x3/uL (130-400); RBC Distribution Width 13.3 % (11.5-14.5); Red Blood Cell (RBC) Count 3.93 mill/uL (4.20-5.40)
[2023-07-09 22:21] LABS: Troponin I Less than 0.010 ng/mL (< 0.028)
[2023-07-09 22:25] LABS: ALT (SGPT) 25 U/L (8-55); AST (SGOT) 33 U/L (5-34); Albumin 4.4 g/dL (3.4-4.8); Alkaline Phosphatase 90 U/L (40-110); Anion Gap 13 mmol/L (10-20); BUN (Urea Nitrogen) 12 mg/dL (9.8-20.1); Calc. Creatinine Clearance 0 mL/min (70-130); Carbon Dioxide 28 mmol/L (23-31); Chloride 105 mmol/L (98-107); Estimated GFR 62; Globulin 2.7 g/dL (2.4-3.5); Glucose 144 mg/dL (83-110); Potassium 4.1 mmol/L (3.5-5.1); Protein, Total 7.1 g/dL (5.8-8.1); Sodium 142 mmol/L (136-145)
[2023-07-09 23:01] LABS: Bilirubin, Total 0.8 mg/dL (0.2-1.2)
== END 2023-07-10 00:38 | disposition home or self-care (01) ==
LOC: ERS 21:15
DX: I10 Essential (primary) hypertension (principal); R00.2 Palpitations; E78.00 Pure hypercholesterolemia, unspecified; I25.10 Atherosclerotic heart disease of native coronary artery without angina pectoris; E11.9 Type 2 diabetes mellitus without complications; I48.91 Unspecified atrial fibrillation; E03.9 Hypothyroidism, unspecified; Z79.01 Long term (current) use of anticoagulants; Z79.899 Other long term (current) drug therapy; Z79.84 Long term (current) use of oral hypoglycemic drugs
CPT/HCPCS: 36415; 71045; 80053; 84484; 85025; 93005

== ENCOUNTER 2023-10-30 09:52 | Outpatient (CLI) | payer OTHER | END 2023-10-30 09:53 | disposition home or self-care (01) | LOC: BICMAMMO 09:52 | PROVIDERS: ATTEND Internal Medicine Medical Oncology | DX: M81.0 Age-related osteoporosis without current pathological fracture (principal); M85.88 Other specified disorders of bone density and structure, other site | CPT/HCPCS: 77080 ==

== ENCOUNTER 2024-02-05 10:09 | Outpatient (CLI) | payer OTHER | END 2024-02-05 10:10 | disposition home or self-care (01) | LOC: BICMAMMO 10:09 | PROVIDERS: ATTEND Family Medicine | DX: Z12.31 Encounter for screening mammogram for malignant neoplasm of breast (principal); Z85.3 Personal history of malignant neoplasm of breast; Z91.89 Other specified personal risk factors, not elsewhere classified; Z98.890 Other specified postprocedural states | CPT/HCPCS: 77063; 77067 ==

== ENCOUNTER 2024-08-26 07:37 | Outpatient (CLI) | payer OTHER | END 2024-08-26 07:38 | disposition home or self-care (01) | LOC: BICULT 07:37 | PROVIDERS: ATTEND Family Medicine | DX: M79.89 Other specified soft tissue disorders (principal) | CPT/HCPCS: 93970 ==

== ENCOUNTER 2024-09-16 14:27 | Outpatient (CLI) | payer OTHER | END 2024-09-16 14:28 | disposition home or self-care (01) | LOC: BICMAMMO 14:27 | PROVIDERS: ATTEND Family Medicine | DX: N64.59 Other signs and symptoms in breast (principal); N63.41 Unspecified lump in right breast, subareolar | CPT/HCPCS: 76642; 77065; G0279 ==

== ENCOUNTER 2024-09-23 10:00 | Outpatient (CLI) | payer OTHER ==
[2024-09-23 15:16] LABS: #Basophils 0.03 10x3/uL (0.0-0.2); %Basophils 0.3 % (0.0-1.0); %Eosinophils 1.4 % (0.0-10.0); %Lymphocytes 15.6 % (21.0-51.0); %Monocytes 9.3 % (0.0-10.0); %Neutrophils 73.1 % (42.0-75.0); Hematocrit 36.3 % (36.0-47.0); Hemoglobin 11.1 g/dL (12.0-16.0); Mean Corpuscular HGB CONC 30.6 g/dL (32.0-36.0); Mean Corpuscular Hemoglobin 29.4 pg (27.0-31.0); Mean Platelet Volume 9.7 fL (7.4-10.4); Platelet Count 239 10x3/uL (130-400); RBC Distribution Width 13.8 % (11.5-14.5); Red Blood Cell (RBC) Count 3.78 mill/uL (4.20-5.40)
[2024-09-23 15:36] LABS: Anion Gap 11 mmol/L (10-20); BUN (Urea Nitrogen) 14 mg/dL (9.8-20.1); Calc. Creatinine Clearance 0 mL/min (70-130); Calcium 9.2 mg/dL (7.8-10.44); Carbon Dioxide 29 mmol/L (23-31); Chloride 106 mmol/L (98-107); Estimated GFR 79; Glucose 149 mg/dL (83-110); Potassium 4.1 mmol/L (3.5-5.1); Sodium 142 mmol/L (136-145)
== END 2024-09-23 11:00 | disposition home or self-care (01) ==
LOC: LABBT 10:00
PROVIDERS: ATTEND Internal Medicine Cardiovascular Disease
DX: Z01.818 Encounter for other preprocedural examination (principal); I48.19 Other persistent atrial fibrillation
CPT/HCPCS: 80048; 85025; 93005; 93010

== ENCOUNTER 2024-09-24 09:52 | Day surgery (SDC) | payer OTHER ==
[2024-09-23 14:30] VITALS: BMI 36.9
[2024-09-24] MEDS ORDERED: PHENYLEPHRINE-NS 100 MCG/ML 10 ML SYRINGE ONE (10:41)
[2024-09-24] MEDS ORDERED: Lidocaine 2% PF 100 mg/5 ml Syringe ONE (10:41)
[2024-09-24] MEDS ORDERED: GLYCOPYRROLATE/PF 0.2 MG/ML VIAL ONE (10:41)
[2024-09-24] MEDS ORDERED: PROPOFOL 20 ML ONE (10:41)
== END 2024-09-24 13:06 | disposition home or self-care (01) ==
LOC: SDC 09:52
PROVIDERS: ATTEND Internal Medicine Cardiovascular Disease
PROC: 5A2204Z Restoration of Cardiac Rhythm, Single (ICD-10-PCS; principal; 2024-09-24)
DX: I48.19 Other persistent atrial fibrillation (principal); I11.9 Hypertensive heart disease without heart failure; I25.10 Atherosclerotic heart disease of native coronary artery without angina pectoris; E11.9 Type 2 diabetes mellitus without complications; E78.5 Hyperlipidemia, unspecified; E66.9 Obesity, unspecified; Z68.36 Body mass index [BMI] 36.0-36.9, adult; Z95.5 Presence of coronary angioplasty implant and graft; Z95.0 Presence of cardiac pacemaker; Z86.16 Personal history of COVID-19; Z90.49 Acquired absence of other specified parts of digestive tract; M19.90 Unspecified osteoarthritis, unspecified site; Z98.49 Cataract extraction status, unspecified eye; Z98.51 Tubal ligation status; Z79.890 Hormone replacement therapy; Z79.01 Long term (current) use of anticoagulants; Z79.84 Long term (current) use of oral hypoglycemic drugs; Z79.899 Other long term (current) drug therapy
CPT/HCPCS: 92960; 93005; J2003; J2704; J3490; 93010

== ENCOUNTER 2024-10-28 12:14 | Outpatient (CLI) | payer OTHER | END 2024-10-28 12:15 | disposition home or self-care (01) | LOC: BICRAD 12:14 | PROVIDERS: ATTEND Family Medicine | DX: M16.11 Unilateral primary osteoarthritis, right hip (principal); M54.50 Low back pain, unspecified; M47.816 Spondylosis without myelopathy or radiculopathy, lumbar region | CPT/HCPCS: 72100 ==

== ENCOUNTER 2025-05-04 09:18 | Outpatient (CLI) | payer OTHER | END 2025-05-04 09:19 | disposition home or self-care (01) | LOC: BICMAMMO 09:18 | PROVIDERS: ATTEND Family Medicine | DX: M81.0 Age-related osteoporosis without current pathological fracture (principal) | CPT/HCPCS: 77080 ==